=== PATIENT | male | born 1970 | race Caucasian/White ===

== ENCOUNTER 2018-03-31 17:34 | Emergency (ER) | payer BC, SELFPAY ==
[2018-03-31 17:50] VITALS: PULSE 67; RESP 16; TEMP 36.5; O2SAT 99
[2018-03-31 17:56] VITALS: BP 155/87
--- NOTE | 2018-03-31 18:20 | W.ED.GENAD ---
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 HAs no dental pain and no chipped orbroken tooth and no loose teeth on exam and no malalignment on biting down. Has 1cm external laceration and 0.5mm laceration on internal right lower lip. It continues to bleedso it was irrigated and closed with absorbable suture. Return precautions for infection given. Meets all criteria per [place] head ct to not image head. Given his tooth likely went through the wound causing the lacs I will place on abx as well Differential Diagnosis laceration, abrasion HPI General Mode of arrival: ambulatory. Date/Time Provider Initiated Documentation: 03/31/18 17:36. Limitations to Documentation: no limitations. Information obtained by: patient. History of Present Illness 48 year old M presents to the emergency department with the chief complaint of lip laceration, described as mild, with intensity rated at 3. and is localized to the face. Patient reports no radiation. Patient started experiencing this hour(s) (3) and it has been constant. No relieving factors improve symptom(s), No exacerbating factors reported . Patient notes no other symptoms.. Related Data Home Medications Medication Instructions Recorded Confirmed acetaminophen [Acetaminophen Extra 1,000 mg PO Q8H PRN PRN #60 tablet 02/10/17 03/31/18 Strength] amoxicillin-pot clavulanate 1 tab PO BID #10 tab 03/31/18 Previous Rx's Medication Instructions Recorded acetaminophen [Acetaminophen Extra 1,000 mg PO Q8H PRN PRN #60 tablet 02/10/17 Strength] amoxicillin-pot clavulanate 1 tab PO BID #10 tab 03/31/18 Allergies Allergy/AdvReac Type Severity Reaction Status Date / Time No Known Allergies Allergy Unverified 05/02/17 15:12 General Stated Complaint: Laceration HOOD: 4 Review of Systems Review of Systems All systems reviewed & are unremarkable except as noted in HPI and below Constitutional Denies chills, Denies fever(s) and Denies weakness ENT Denies change in voice Cardiovascular Denies chest pain and Denies dyspnea Respiratory Denies dyspnea Gastrointestinal Denies abdominal pain, Denies nausea and Denies vomiting Genitourinary Denies dysuria Musculoskeletal Denies joint swelling Integumentary/Breasts Denies rash Neurologic Denies weakness Psychiatric Denies depression Allergic/Immunologic Denies urticaria PFSH Family History Mother No problems noted. Father No problems noted. Sister No problems noted. Sister No problems noted. Brother No problems noted. Grandfather No problems noted. Grandfather Neoplasm Grandmother No problems noted. Grandmother Neoplasm Daughter No problems noted. Daughter No problems noted. Social History Smoking/Tobacco Use Status: Former Tobacco Use Exam Const General: no acute distress Orientation: alert HENMT Ears: external ears normal General nose exam: external nose normal Mouth: moist mucous membranes Eyes General: appearance normal, both eyes and all related structures Neck Neck: normal visual inspection Resp Effort & Inspection: normal respiratory effort and able to speak in complete sentences Cardio Rate: regular rate Skin General skin exam: no rashes or lesions noted Neuro General: alert and oriented x3 Extrem General: normal to inspection Psych Mental Status: mental status grossly normal Course Vital Signs Temperature 36.5 C 03/31/18 17:50 Pulse 67 03/31/18 17:50 Respiratory Rate 16 03/31/18 17:50 Pulse Oximetry 99 03/31/18 17:50 Temperature 36.5 C 03/31/18 17:50 Temperature Source Skin 03/31/18 17:50 Pulse 67 03/31/18 17:50 Respiratory Rate 16 03/31/18 17:50 Respiratory Effort 03/31/18 17:53 Blood Pressure 155/87 H 03/31/18 17:56 Blood Pressure Position Sitting 03/31/18 17:50 Pulse Oximetry 99 03/31/18 17:50 Oxygen Delivery Method Room Air 03/31/18 17:50 Oxygen Flow Rate 0 03/31/18 17:50 Pain Level 1 03/31/18 17:50 Procedures Laceration Laceration 1: Site: lip Side (If applicable): right Size (cm): 1 Description: linear Depth: simple, single layer Local Anesthetic: Lidocaine 1% Amount of anesthesia used (mL): 5 Pre-repair: wound explored and irrigated extensively Skin layer closed with: other (chromic gut) Size (cm): 5-0 Number of sutures: 3 Technique: simple, interrupted
--- NOTE | 2018-03-31 18:25 | ED.GENADUL_ITS ---
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 HAs no dental pain and no chipped orbroken tooth and no loose teeth on exam and no malalignment on biting down. Has 1cm external laceration and 0.5mm laceration on internal right lower lip. It continues to bleedso it was irrigated and closed with absorbable suture. Return precautions for infection given. Meets all criteria per [place] head ct to not image head. Given his tooth likely went through the wound causing the lacs I will place on abx as well Differential Diagnosis laceration, abrasion HPI General Mode of arrival: ambulatory . Date/Time Provider Initiated Documentation: 03/31/18 17:36 . Limitations to Documentation: no limitations . Information obtained by: patient . History of Present Illness 48 year old M presents to the emergency department with the chief complaint of lip laceration, described as mild, with intensity rated at 3. and is localized to the face. Patient reports no radiation. Patient started experiencing this hour(s) (3) and it has been constant. No relieving factors improve symptom(s), No exacerbating factors reported . Patient notes no other symptoms.. Related Data Home Medications Medication Instructions Recorded Confirmed acetaminophen [Acetaminophen Extra 1,000 mg PO Q8H PRN PRN #60 tablet 02/10/17 03/31/18 Strength] amoxicillin-pot clavulanate 1 tab PO BID #10 tab 03/31/18 Previous Rx's Medication Instructions Recorded acetaminophen [Acetaminophen Extra 1,000 mg PO Q8H PRN PRN #60 tablet 02/10/17 Strength] amoxicillin-pot clavulanate 1 tab PO BID #10 tab 03/31/18 Allergies Allergy/AdvReac Type Severity Reaction Status Date / Time No Known Allergies Allergy Unverified 05/02/17 15:12 General Stated Complaint: Laceration HOOD: 4 Review of Systems Review of Systems All systems reviewed & are unremarkable except as noted in HPI and below Constitutional Denies chills, Denies fever(s) and Denies weakness ENT Denies change in voice Cardiovascular Denies chest pain and Denies dyspnea Respiratory Denies dyspnea Gastrointestinal Denies abdominal pain, Denies nausea and Denies vomiting Genitourinary Denies dysuria Musculoskeletal Denies joint swelling Integumentary/Breasts Denies rash Neurologic Denies weakness Psychiatric Denies depression Allergic/Immunologic Denies urticaria PFSH Family History Mother No problems noted. Father No problems noted. Sister No problems noted. Sister No problems noted. Brother No problems noted. Grandfather No problems noted. Grandfather Neoplasm Grandmother No problems noted. Grandmother Neoplasm Daughter No problems noted. Daughter No problems noted. Social History Smoking/Tobacco Use Status: Former Tobacco Use Exam Const General: no acute distress Orientation: alert HENMT Ears: external ears normal General nose exam: external nose normal Mouth: moist mucous membranes Eyes General: appearance normal, both eyes and all related structures Neck Neck: normal visual inspection Resp Effort & Inspection: normal respiratory effort and able to speak in complete sentences Cardio Rate: regular rate Skin General skin exam: no rashes or lesions noted Neuro General: alert and oriented x3 Extrem General: normal to inspection Psych Mental Status: mental status grossly normal Course Vital Signs Temperature 36.5 C 03/31/18 17:50 Pulse 67 03/31/18 17:50 Respiratory Rate 16 03/31/18 17:50 Pulse Oximetry 99 03/31/18 17:50 Temperature 36.5 C 03/31/18 17:50 Temperature Source Skin 03/31/18 17:50 Pulse 67 03/31/18 17:50 Respiratory Rate 16 03/31/18 17:50 Respiratory Effort 03/31/18 17:53 Blood Pressure 155/87 H 03/31/18 17:56 Blood Pressure Position Sitting 03/31/18 17:50 Pulse Oximetry 99 03/31/18 17:50 Oxygen Delivery Method Room Air 03/31/18 17:50 Oxygen Flow Rate 0 03/31/18 17:50 Pain Level 1 03/31/18 17:50 Procedures Laceration Laceration 1: Site: lip Side (If applicable): right Size (cm): 1 Description: linear Depth: simple, single layer Local Anesthetic: Lidocaine 1% Amount of anesthesia used (mL): 5 Pre-repair: wound explored and irrigated extensively Skin layer closed with: other (chromic gut) Size (cm): 5-0 Number of sutures: 3 Technique: simple, interrupted
[2018-03-31 18:32] VITALS: BP 133/74; PULSE 89; RESP 16; O2SAT 98
== END 2018-03-31 18:32 | disposition home or self-care (01) ==
PROVIDERS: Emergency Provider Emergency Medicine; PCP Family Medicine
DX: S01.511A Laceration without foreign body of lip, initial encounter (principal); W20.8XXA Other cause of strike by thrown, projected or falling object, initial encounter; Y99.0 Civilian activity done for income or pay
CPT/HCPCS: 12011

== ENCOUNTER 2019-01-14 20:29 | Emergency (ER) | payer BC, SELFPAY ==
[2019-01-14] VITALS (14 sets, daily range): BP systolic 120–137; BP diastolic 69–80; PULSE 81–89; RESP 16; TEMP 37; O2SAT 96–98
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
[2019-01-14] MEDS: Ketorolac 15 MG/ML VIAL (20:53)
[2019-01-14 20:55] LABS: Abs Immature Grans 0.04 k/cumm (0.0-0.09); Absolute Basophil Count 0.05 k/cumm (0.0-0.2); Absolute Eosinophil Count 0.02 k/cumm (0.0-0.7); Absolute Lymphocyte Count 1.67 k/cumm (1.2-3.4); Absolute Monocyte Count 0.73 k/cumm (0.11-0.7); Absolute Neutrophil Count 6.72 k/cumm (1.2-6.7); Basophils % 0.5; Eosinophils % 0.2; HCT 40.9 % (40.0-50.0); HGB 14.1 g/dL (13.5-17.5); Immature Grans % 0.4; Lymphocytes % 18.1; Mean Corp. HGB Concentration 34.5 g/dL (32.0-36.0); Mean Corpuscular Hemoglobin 31.9 pg (27.0-33.0); Mean Corpuscular Volume 92.5 fL (80-95); Mean Platelet Volume 10.3 fL (8.0-11.0); Monocytes % 7.9; Neutrophils % 72.9; Platelet Count 332 x1000/uL (130-400); RBC 4.42 m/cumm (4.50-6.00); RBC Distribution Width 12.7 % (11.8-14.1); White Blood Cell Count 9.23 k/cumm (4.4-10.8)
--- NOTE | 2019-01-14 21:03 | NUR.NOTE ---
Pt refused wheelchair or stretcher to CT, insisted on walking. MD advised with verbal OK.Nursing Note:
[2019-01-14 21:08] LABS: PTT Activated 19.8 sec (21.0-31.4); Prothrombin Time 9.9 sec (9.3-11.0)
[2019-01-14 21:09] LABS: ALT 33 U/L (16-63); AST 28 U/L (15-37); Albumin 4.3 g/dL (3.4-5.0); Alkaline Phosphatase 74 U/L (46-116); Anion Gap 11.6 mmol/L (3-11); BUN 18 mg/dL (7-18); Bilirubin, Total 0.6 mg/dL (0.2-1.0); CO2 23.4 mmol/L (21.0-32.0); CREATININE 0.91 mg/dL (0.70-1.30); Calcium 8.7 mg/dL (8.5-10.1); Chloride 105 mmol/L (98-107); Glucose 116 mg/dL (70-100); Potassium 3.5 mmol/L (3.5-5.1); Sodium 140 mmol/L (136-145); Total Protein 7.8 g/dL (6.4-8.2)
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
[2019-01-14] MEDS: Omnipaque 350 MG/ML 100 ML BTL IJ (21:47)
[2019-01-14] MEDS: Lidocaine 5% Patch 1 PATCH TP (21:56)
== END 2019-01-14 21:55 | disposition home or self-care (01) ==
PROVIDERS: Emergency Provider Emergency Medicine; PCP Family Medicine
DX: S22.42XA Multiple fractures of ribs, left side, initial encounter for closed fracture (principal); V43.02XA Car driver injured in collision with other type car in nontraffic accident, initial encounter; Y92.39 Other specified sports and athletic area as the place of occurrence of the external cause
CPT/HCPCS: 36415; 74177; 80053; 96374; 99285; 71260; 85025; 85610; 85730; 99284; J1885; J3490

== ENCOUNTER 2019-01-16 11:41 | Emergency (ER) | payer BC, SELFPAY ==
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
[2019-01-16 11:47] VITALS: BP 120/87; PULSE 77; RESP 18; TEMP 36.7; O2SAT 96
--- NOTE | 2019-01-16 11:51 | W.ED.GENAD ---
Discharge Plan Disposition Patient Disposition: HOME Condition: Fair Discharge Details Chief Complaint: Chest/Rib Clinical Impression: Multiple rib fractures Primary Care Provider: Rohan Magallanes ED Provider: Carolina Eid Home Meds and New Rx's Prescriptions: New lidocaine [Lidoderm] 5 % adhesive patch,medicated 1 patch TP DAILY PRN (Reason: pain) Qty: 15 RF: 0 Discharge Instructions Instructions: Rib Fracture (ED) Additional Instructions: Encourage hydration. Please continue with Tylenol and/or ibuprofen as needed for discomfort. You may use the lidocaine patches as prescribed to help with discomfort. Encourage deep breathing, please continue to use the incentive spirometer. Please follow-up with primary care in 1 week for reevaluation. If you develop difficulty breathing, shortness of breath, increased pain or other new/worsening symptoms please seek care urgently once again. Referrals: Rohan Magallanes MD [Primary Care Provider] - Discharge Data Discharge Date/Time-TO BE ENTERED AT DEPARTURE: 01/16/19 14:01 Medical Decision Making Patient is a 49 year old male presenting today with c/c of left rib pain. Patient was seen here 2 days after, [facility] Please see previous providers note. At that time, he was diagnosed with rib fractures to the left posterior 8, 9, 10 ribs. Had been doing well in regards to pain. Reports that he had been using ibuprofen occasionally to help with discomfort. Last took this 8 hours ago. Reports that upon awakening this morning, he noted severe pain and rolling in bed. Is concerned that this may cause a shift. Denies any shortness of breath, no difficulty breathing, has no increased pain, particularly with movement. His reports that yesterday he was able to sneeze with some minimal discomfort but that at this point, the pain is severe. On exam, appears nontoxic. He is resting comfortably. Moving well. Lungs are clear in all hel[place]. Patient is not hypoxic. Do not note any palpable deformity, no ecchymosis. Plan for x-ray, dosing,, ibuprofen and Lidoderm patch. CXR reviewed by radiologist, discussed imaging with Dr. Chambers, she note left basilar atelectasis. Discussed with patient. ADvised that no evidence of large change in fracture placement. Discussed with the patient and his . As he is stable, has not had any recurrent trauma, do not feel that repeat CT is needed at [facility] time. He has been using incentive spirometer, I reinforced using this. Encouraged hydration. He was given strict return precautions. Will f/u with PCP. All quesitons and concerns were addressed, they are in agreement with this plan. HPI General Mode of arrival: ambulatory. Date/Time Provider Initiated Documentation: 01/16/19 11:48. Limitations to Documentation: no limitations. Information obtained by: patient, family and RN notes reviewed. History of Present Illness 49 year old M presents to the emergency department with the chief complaint of left rib pain, described as severe, with intensity rated at 8. Quality is described as sharp, and is localized to the back. Patient reports no radiation. Patient started experiencing this day(s) and it has been constant (worse after recent movement). Immobilization improves symptom(s), Movement worsens symptoms . Patient notes no other symptoms.; denies cough, diaphoresis, fever/chills, loss of appetite, nausea/vomiting, rash, shortness of breath and weakness. Patient did receive the following treatments prior to arrival, NSAID (0400) Related Data Home Medications Medication Instructions Recorded Confirmed lidocaine [Lidoderm] 1 patch TP DAILY PRN #15 each 01/16/19 Previous Rx's Medication Instructions Recorded lidocaine [Lidoderm] 1 patch TP DAILY PRN #15 each 01/16/19 Allergies Allergy/AdvReac Type Severity Reaction Status Date / Time No Known Allergies Allergy Unverified 01/16/19 11:49 General Stated Complaint: Chest/Rib HOOD: 3 Review of Systems Constitutional Reports as per HPI, Denies chills, Denies fever(s), Denies headache(s), Denies lethargy and Denies poor appetite Eyes Denies change in vision ENT Denies dizziness and Denies headache(s) Cardiovascular Reports as per HPI, Denies chest pain, Denies radiating jaw, neck or arm pain, Denies palpitations, Denies dyspnea and Denies dyspnea on exertion Respiratory Reports as per HPI, Denies chest congestion, Denies cough, Reports pain on inspiration, Reports pain with cough, Denies dyspnea, Denies dyspnea on exertion and Denies wheezing Gastrointestinal Reports as per HPI, Denies abdominal pain, Denies diarrhea, Denies nausea and Denies vomiting Genitourinary Denies system reviewed and no additional complaints, except as docu (denies change in urinary habits) Musculoskeletal Reports as per HPI and Denies back pain Integumentary/Breasts Reports as per HPI and Denies rash Neurologic Reports as per HPI, Denies dizziness and Denies headache(s) Endocrine Denies palpitations Allergic/Immunologic Denies wheezing [facility] Social History Smoking/Tobacco Use Status: Former Tobacco Use Alcohol Intake: current Alcohol Intake frequency: a few times a week Drug use: Never Substance use type: does not use Do you feel safe at home: Yes Do you feel safe in your relationship?: Yes Exam Const General: cooperative, healthy appearing, comfortable, no acute distress and well developed Nutritional Appearance: average body habitus and well nourished Orientation: alert, awake and oriented x3 HENMT Head: normal to inspection Ears: hearing grossly normal bilaterally Mouth: moist mucous membranes Chest Chest: normal inspection of the chest, no crepitus and localized rib tenderness with anteroposterior compression (left posterior and lateral rib pain with palpation over 8-10) Resp Effort & Inspection: normal respiratory effort, able to speak in complete sentences and no respiratory distress Auscultation: clear to auscultation bilaterally, no rales, no rhonchi and no wheezes Cardio Rate: regular rate Rhythm: regular rhythm Heart Sounds: S1 normal and S2 normal GI Inspection: normal to inspection, no edema and non-distended Palpation: soft, no hepatosplenomegaly, not firm, no guarding, not rigid and nontender Auscultation: normal bowel sounds Back/Spine/Pelvis Thoracic/Lumbar Spine: thoracic and lumbar spine normal to inspection Skin General skin exam: no rashes or lesions noted Trauma: no lacerations or abrasions Neuro General: alert, awake and oriented x3 Cognition: normal cognition Speech: speech normal Gait: normal gait Extrem General: normal to inspection, normal capillary refill, no pedal edema, no calf tenderness and normal gait Psych Appearance: grossly normal and well kempt Mental Status: mental status grossly normal Speech and Movement: speech and movement normal Course Vital Signs Temperature 36.7 C 01/16/19 11:47 Pulse 77 01/16/19 11:47 Respiratory Rate 18 01/16/19 11:47 Blood Pressure 120/87 01/16/19 11:47 Pulse Oximetry 96 01/16/19 11:47 Temperature 36.7 C 01/16/19 11:47 Temperature Source Skin 01/16/19 11:47 Pulse 77 01/16/19 11:47 Respiratory Rate 18 01/16/19 11:47 Respiratory Effort 01/16/19 11:50 Blood Pressure 120/87 01/16/19 11:47 Blood Pressure Position Supine 01/16/19 11:47 Pulse Oximetry 96 01/16/19 11:47 Oxygen Delivery Method Room Air 01/16/19 11:47 Oxygen Flow Rate 0 01/16/19 11:47 Pain Level 8 01/16/19 11:47
--- NOTE | 2019-01-16 12:04 | DI.RAD_ITS ---
SYMPTOM/DIAGNOSIS: TRAUMA, KNOWN FRACTURE WITH RE INJURY PA AND LATERAL CHEST AND LEFT RIBS: Comparison is made with chest, abdomen and pelvic CT of 01/14/19. There is blunting at the left costophrenic angle likely representing a small effusion. There is mild linear atelectasis at the left lung base. Rib views were performed. Fractures of the left eighth and ninth ribs are visible. No pneumothorax is seen. IMPRESSION: Left basilar atelectasis and tiny left pleural effusion.
[2019-01-16] MEDS: Ibuprofen 600 MG TAB PO (12:25)
[2019-01-16] MEDS: Acetaminophen 325 MG TAB 650 MG PO (12:25)
[2019-01-16] MEDS: Lidocaine 5% Patch 1 PATCH (12:26)
--- NOTE | 2019-01-16 13:43 | NUR.NOTE ---
Nursing Note: PT reports 3/10 pain scale after interventions. An improvement of 4 points from previous assessment (7/10).
[2019-01-16 14:01] VITALS: BP 130/79; PULSE 69; RESP 16; TEMP 37; O2SAT 97
== END 2019-01-16 14:01 | disposition home or self-care (01) ==
PROVIDERS: Emergency Provider Physician Assistant; PCP Family Medicine
DX: S22.42XA Multiple fractures of ribs, left side, initial encounter for closed fracture (principal); V43.02XA Car driver injured in collision with other type car in nontraffic accident, initial encounter
CPT/HCPCS: 99283; 71046; 71100

== ENCOUNTER 2019-02-05 04:56 | Emergency (ER) | payer BC, SELFPAY ==
[2019-02-05 05:00] VITALS: BP 146/82; PULSE 74; RESP 20; TEMP 36.5; O2SAT 96
[2019-02-05 05:04] VITALS: RESP 20
--- NOTE | 2019-02-05 05:08 | W.ED.GENAD ---
Discharge Plan Disposition Patient Disposition: HOME Condition: Good Discharge Details Chief Complaint: SOB Clinical Impression: Closed rib fracture, Cough Primary Care Provider: Rohan Magallanes ED Provider: Homer Vásquez Home Meds and New Rx's Prescriptions: New lidocaine [Lidoderm] 1 PATCH patch 1 patch Topical Q24H Qty: 7 RF: 0 doxycycline hyclate 100 mg capsule 100 mg PO BID Qty: 20 RF: 0 Discharge Instructions Instructions: Rib Fracture (ED), Acute Cough (ED) Additional Instructions: I am concerned that you have clinical pneumonia. Please take the antibiotic as directed. Please use the Lidoderm patches as you have been using them and continue to use Tylenol Motrin as needed for pain. Continue to take deep breaths multiple times on a regular basis. Please use your inhaler, take 2 puffs every 4-6 hours. If you notice any worsening of your symptoms, or any new symptoms such as vomiting, diarrhea, fever, chills, shortness of breath, chest pain, numbness, weakness, or fainting , please return immediately to the emergency department for reevaluation. Please follow up with your primary care provider as soon as possible for reassessment and reevaluation. As always, it was a pleasure participating in your medical care today. Referrals: Rohan Magallanes MD [Primary Care Provider] - Medical Decision Making This is a very pleasant 49-year-old male with no past medical history, who presents today for evaluation of cough, productive yellow sputum mild shortness of breath. 2-1/2 to 3 weeks ago he [facility] scan of the chest abdomen pelvis at that time showed evidence of rib fracture on the left ribs 8 9 and 10. Subsequent repeat chest x-ray few days later showed evidence of mild atelectasis but no pneumonia. Unfortunately a few days ago his family came in contact with a notable upper respiratory cold, his symptoms have gradually continued and worsened to develop a cough with productive yellow sputum mild shortness of breath and chills over the last 24 to 48 hours. Physical exam demonstrates wheezes and crackles both lung [place], particularly the left. Vital signs are notably stable, no hypoxemia or tachycardia. Patient is still doing incentive spirometry and deep breathing at home. Differential is highest for pneumonia. We will get a chest x-ray for reassessment, given breathing treatment, repeat Lidoderm patch and reassess. 5:54 AM Chest x-ray per virtual radiology shows no evidence of significant pneumonia. However I am concerned for clinical pneumonia based on the patient's symptomatology. X-ray shows no evidence of significant pneumothorax or effusion. Patient has notable improvement of his symptomatology after breathing treatment. I do feel that secondary to his rib fractures and most likely recent viral infection it is a bit of reactive airway component. With his clinical symptoms concerning for pneumonia do feel that antibiotic treatment is indicated at this point. I have extensively reviewed the treatment plan and discharge instructions with the patient and their family. I have addressed all patient concerns at this time. The patient and family was made aware of what symptoms to monitor for that would warrant a return to the emergency department. Discussed the plan with the patient and family, they demonstrate verbal understanding and agreement with our assessment and plan at this time. EKG 5: 22 Rate 71, intervals normal, sinus rhythm, no significant ST elevation or depression, there is a single inverted T wave in V1. There are small old Q wave in lead III. No other abnormalities or acute component. No evidence of STEMI FINDINGS: Lungs: Unremarkable. No consolidation. Pleural space: Unremarkable. No pleural effusion. No pneumothorax. Heart/Mediastinum: Unremarkable. No cardiomegaly. Bones/joints: Probable old left-sided rib fracture deformities Soft tissues: Prominent nipple shadows noted bilaterally IMPRESSION: No acute findings Thank you for allowing us to participate in the care of your patient. Dictated and Authenticated by: Jono Pandey MD [facility] General Date/Time Provider Initiated Documentation: 02/05/19 05:06. HPI Narrative: This is a pleasant 49-year-old male with no past medical history of significance who presents today for cough with productive yellow sputum and mild shortness of breath. On 01/14 the patient suffered a trauma at the [facility] and fractured ribs 8 9 and 10. No other significant abnormality seen then, 2 days afterwards he had continued pain, chest x-ray was ordered which showed mild atelectasis and very small effusion but no pneumonia. Since then he has been using Lidoderm patches, however Tylenol, Motrin, and incentive spirometry as directed. Unfortunately over the last week the family has all come in contact with bit of a head cold with runny nose and congestion, the patient's symptoms unfortunately have then transitioned into his chest, and now has notable cough with productive yellow sputum. Chest pain has continued, worse with movement, he is able to still do deep breathing well without significant difficulty. He does have pain with cough. He does admit to some chills at home, but denies any arm neck or shoulder pain. He denies any personal or family history of cardiac disease. He denies any tobacco abuse. Patient has no other complaints at this time. He denies any hemoptysis, nausea vomiting or diarrhea. No recent antibiotic use. Related Data Home Medications Medication Instructions Recorded Confirmed doxycycline hyclate 100 mg PO BID #20 cap 02/05/19 lidocaine [Lidoderm] 1 patch TOPICAL Q24H #7 patch 02/05/19 Previous Rx's Medication Instructions Recorded doxycycline hyclate 100 mg PO BID #20 cap 02/05/19 lidocaine [Lidoderm] 1 patch TOPICAL Q24H #7 patch 02/05/19 Allergies Allergy/AdvReac Type Severity Reaction Status Date / Time No Known Allergies Allergy Unverified 02/05/19 05:03 General Stated Complaint: SOB HOOD: 4 Review of Systems Review of Systems ROS Unobtainable: All systems reviewed & are unremarkable except as noted in HPI and below PFSH Social History Smoking/Tobacco Use Status: Former Tobacco Use Alcohol Intake: current Alcohol Intake frequency: a few times a week Drug use: Never Substance use type: does not use Do you feel safe at home: Yes Do you feel safe in your relationship?: Yes Exam Narrative Exam Narrative: 1.Const: Well-nourished, Well-developed, appearing stated age 2.Eyes: PERRL, no conjunctival injection, and symmetrical lids. 3.ENT: Atraumatic external nose and ears. Moist MM. Neck: Symmetric, trachea midline, No thyromegaly. 4.CVS: +S1/S2, No murmurs or gallops. Peripheral pulses 2+ and equal in all extremities. Brisk capillary refill in all extremities. 5.RESP: Unlabored respiratory effort. Crackles in the bases bilaterally mild wheezes throughout. Mild tenderness over the left lateral rib cage. No new bruising. There is an old bruise that is mild over the left flank, however this is unchanged per family since the initial incident. 6.GI: Soft, Nontender/Nondistended, No hepatosplenomegaly. No guarding or rebound. 7.MSK: Normocephalic/Atraumatic, Extremities w/o deformity or ttp No cyanosis or clubbing, Normal movement of all extremities 8.Skin: Warm, Dry. No rashes or lesions. Please see respiratory for bruise description 9.Neuro: clinical product specialist II-XII grossly intact. Sensation grossly intact, no focal neurologic deficits. 10.Psych: (AAO) x3. Appropriate mood and affect Course Vital Signs Vital signs: Vital Signs Temperature 36.5 C 02/05/19 05:00 Pulse 74 02/05/19 05:00 Respiratory Rate 20 02/05/19 05:00 Blood Pressure 146/82 H 02/05/19 05:00 Pulse Oximetry 96 02/05/19 05:00 Temperature 36.5 C 02/05/19 05:00 Temperature Source Temporal Artery Scan 02/05/19 05:00 Pulse 74 02/05/19 05:00 Respiratory Rate 20 02/05/19 05:04 Respiratory Effort Short of Breath 02/05/19 05:04 Blood Pressure 146/82 H 02/05/19 05:00 Blood Pressure Position Sitting 02/05/19 05:00 Pulse Oximetry 96 02/05/19 05:00 Oxygen Delivery Method Room Air 02/05/19 05:00 Oxygen Flow Rate 0 02/05/19 05:00 Pain Level 6 02/05/19 05:04
--- NOTE | 2019-02-05 05:30 | DI.RAD_ITS ---
SYMPTOM/DIAGNOSIS: COUGH, KNOWN RIB FRACTURES, ? PNEUMONIA PA AND LATERAL CHEST: The lungs are well expanded and free of infiltrate. There is no pleural effusion or pneumothorax. The cardiovascular structures are intact. Note is made of what appears to probably represent old left sided rib fractures. SUMMARY: No evidence of acute cardiopulmonary disease.
[2019-02-05] MEDS: Lidocaine 5% Patch 1 PATCH TP (05:35)
[2019-02-05] MEDS: Albuterol/Ipratropium 3 ML UPD VIAL UPD (05:39)
--- NOTE | 2019-02-05 05:52 | DI.VRAD_ITS ---
EXAM: XR Chest, 2 Views EXAM DATE/TIME: 02/05/2019 5:17 AM CLINICAL HISTORY: 49 years old, male; Chest wall pain; Patient HX: Known rib FX posterior left 8, 9, 10, cough, R/O pneumonia TECHNIQUE: Imaging protocol: XR of the chest Views: 2 views. COMPARISON: CR XR ribs LT w PA lat chest 01/16/2019 12:21 PM FINDINGS: Lungs: Unremarkable. No consolidation. Pleural space: Unremarkable. No pleural effusion. No pneumothorax. Heart/Mediastinum: Unremarkable. No cardiomegaly. Bones/joints: Probable old left-sided rib fracture deformities Soft tissues: Prominent nipple shadows noted bilaterally IMPRESSION: No acute findings Dictated and Authenticated by: Jono Pandey MD. Ordering:CRISTOPHER Coronel MD
[2019-02-05] MEDS: Inhaler, Assist Device 1 EACH MC (06:07)
[2019-02-05] MEDS: Albuterol HFA 8 GM 60 PUFF INH IH (06:07)
[2019-02-05] MEDS: Doxycycline Hyclate 100 MG CAP PO (06:07)
[2019-02-05 06:09] VITALS: RESP 8
== END 2019-02-05 06:20 | disposition home or self-care (01) ==
PROVIDERS: Emergency Provider Student in an Organized Health Care Education/Training Program; PCP Family Medicine
DX: R05 Cough (principal); S22.42XD Multiple fractures of ribs, left side, subsequent encounter for fracture with routine healing; V43.02XD Car driver injured in collision with other type car in nontraffic accident, subsequent encounter; J18.9 Pneumonia, unspecified organism; Z20.828 Contact with and (suspected) exposure to other viral communicable diseases
CPT/HCPCS: 93005; 94640; 99284; 71046; 93010; J7620

== ENCOUNTER 2019-07-28 19:45 | Emergency (ER) | payer BC, SELFPAY ==
[2019-07-28 19:51] VITALS: BP 155/78; PULSE 99; RESP 18; TEMP 38.3; O2SAT 97
--- NOTE | 2019-07-28 20:00 | DI.RAD_ITS ---
EXAM: XR CHEST 2V PA LATERAL CLINICAL HISTORY: cough and fever TECHNIQUE: 2D digital imaging was performed. COMPARISON: XR CHEST 2V PA LATERAL from 02/05/2019 FINDINGS: MEDIASTINUM: Normal. HEART: Normal. PULMONARY VASCULATURE: Normal. LUNGS: Clear. PLEURAL SPACE: No pleural effusion or pneumothorax. BONE:Degenerative changes. OTHER FINDINGS:Normal. IMPRESSION: No acute pulmonary findings. DATA REPOSITORY: RADIATION DOSE DELIVERED:
--- NOTE | 2019-07-28 20:11 | W.ED.GENAD ---
Discharge Plan Disposition Patient Disposition: HOME Condition: Stable Discharge Details Chief Complaint: RespSymp Clinical Impression: Fever Primary Care Provider: Rohan Magallanes ED Provider: Orville Vasquez Home Meds and New Rx's Prescriptions: New doxycycline hyclate 100 mg tablet 100 mg PO BID Qty: 14 RF: 0 Discharge Instructions Instructions: Fever in Adults (ED) Additional Instructions: you are being started on doxycyline to cover for a pneumonia if you are not better within a week return to the emergency department if you feel more ill, have worsening trouble breathing or abdominal pain return to the emergency department Medical Decision Making 49 yo male who denies chronic medical problems, smoking alcohol or drug use or recent travel comes in with chief complaint of subjective fevers intermittently since May with worsening cough. Denies travel, smoking, alcohol or drug use. No known sick contacts. HE arrives HD stable, has clear lungs soft abdomen, no rashes. Does have fever to 38.3, also has had body aches. Could be flu vs pneumonia given cough, no risk factors for covid-19. Will obtain cxr and test for flu and give IVF as he does appear dehydrated. 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 Xray and flu swab negative. Given his length of symptoms and cough and also has some sinus congestion will start doxycyline to cover for CAP and sinusitis. ADvised to f/u with pcp within a week and return precautions given Differential Diagnosis Differential Diagnosis: influenza, uri, pneumonia Imaging Data Radiologic Study: Attestation: I personally reviewed and interpreted this imaging study as follows: Imaging: X-Ray Radiologist's impression: no acute findings Lab Data Lab results reviewed: Yes I reviewed the patient's lab results. HPI General Date/Time Provider Initiated Documentation: 07/28/19 19:54. Related Data Home Medications Medication Instructions Recorded Confirmed doxycycline hyclate 100 mg PO BID #14 tab 07/28/19 Previous Rx's Medication Instructions Recorded doxycycline hyclate 100 mg PO BID #14 tab 07/28/19 Allergies Allergy/AdvReac Type Severity Reaction Status Date / Time No Known Allergies Allergy Unverified 02/05/19 05:03 General Stated Complaint: RespSymp HOOD: 3 Review of Systems All systems reviewed & are unremarkable except as noted in HPI and below Cardiovascular Cardiovascular: Denies chest pain and Denies dyspnea Respiratory Respiratory: Denies dyspnea Gastrointestinal Gastrointestinal: Denies abdominal pain, Denies nausea and Denies vomiting Integumentary/Breasts Skin/Breast: Denies rash Psychiatric Psychiatric: Denies depression [facility] Social History Smoking/Tobacco Use Status: Never Alcohol Intake: current Alcohol Intake frequency: a few times a week Drug use: Never Substance use type: does not use Do you feel safe at home: Yes Do you feel safe in your relationship?: Yes Exam Const General: no acute distress Orientation: alert HENMT Head: normal to inspection Ears: external ears normal General nose exam: external nose normal Mouth: moist mucous membranes Eyes General: appearance normal, both eyes and all related structures Neck Neck: normal visual inspection Resp Effort & Inspection: normal respiratory effort and able to speak in complete sentences Cardio Rate: regular rate Skin General skin exam: no rashes or lesions noted Neuro General: alert and oriented x3 Extrem General: normal to inspection Psych Mental Status: mental status grossly normal Course Vital Signs Vital signs: Vital Signs Temperature 38.3 C H 07/28/19 19:51 Pulse 99 H 07/28/19 19:51 Respiratory Rate 18 07/28/19 19:51 Blood Pressure 155/78 H 07/28/19 19:51 Pulse Oximetry 97 07/28/19 19:51 Temperature 38.3 C H 07/28/19 19:51 Temperature Source Oral 07/28/19 19:51 Pulse 99 H 07/28/19 19:51 Respiratory Rate 18 07/28/19 19:51 Respiratory Effort 07/28/19 19:53 Respiratory Depth Normal 07/28/19 19:53 Blood Pressure 155/78 H 07/28/19 19:51 Blood Pressure Position Sitting 07/28/19 19:51 Pulse Oximetry 97 07/28/19 19:51 Oxygen Delivery Method Room Air 07/28/19 19:51 Oxygen Flow Rate 0 07/28/19 19:51 Pain Level 8 07/28/19 19:51
[2019-07-28] MEDS: Normal Saline 1,000 ML 1000 ML IV (20:32)
[2019-07-28] MEDS: Acetaminophen 500 MG TAB 1000 MG PO (20:33)
[2019-07-28] MEDS: Normal Saline Flush 10 ML SYR IVP (20:33)
[2019-07-28 20:35] LABS: Abs Immature Grans 0.18 k/cumm (0.0-0.09); Absolute Basophil Count 0.03 k/cumm (0.0-0.2); Absolute Eosinophil Count 0.02 k/cumm (0.0-0.7); Absolute Lymphocyte Count 1.19 k/cumm (1.2-3.4); Absolute Monocyte Count 1.33 k/cumm (0.11-0.7); Basophils % 0.3; Eosinophils % 0.2; HGB 10.6 g/dL (13.5-17.5); Immature Grans % 1.7 %; Lymphocytes % 10.9; Mean Corp. HGB Concentration 33.1 g/dL (32.0-36.0); Mean Corpuscular Hemoglobin 29.9 pg (27.0-33.0); Mean Corpuscular Volume 90.4 fL (80-95); Mean Platelet Volume 8.9 fL (8.0-11.0); Monocytes % 12.2; Neutrophils % 74.7; Platelet Count 323 x1000/uL (130-400); RBC 3.54 m/cumm (4.50-6.00); RBC Distribution Width 13.3 % (11.8-14.1)
[2019-07-28 20:36] LABS: Absolute Neutrophil Count 8.14 k/cumm (1.2-6.7)
[2019-07-28 20:48] LABS: ALT 39 U/L (16-63); AST 56 U/L (15-37); Albumin 2.9 g/dL (3.4-5.0); Alkaline Phosphatase 201 U/L (46-116); Anion Gap 12.6 mmol/L (3-11); BUN 18 mg/dL (7-18); Bilirubin, Total 0.3 mg/dL (0.2-1.0); CO2 22.4 mmol/L (21.0-32.0); Calcium 8.5 mg/dL (8.5-10.1); Chloride 101 mmol/L (98-107); Glucose 118 mg/dL (74-106); Potassium 3.8 mmol/L (3.5-5.1); Sodium 136 mmol/L (136-145); Total Protein 7.3 g/dL (6.4-8.2)
--- NOTE | 2019-07-28 20:48 | DI.VRAD_ITS ---
PROCEDURE INFORMATION: Exam: XR Chest, 2 Views Exam date and time: 07/28/2019 8:39 PM Age: 49 years old Clinical indication: Cough and fever TECHNIQUE: Imaging protocol: XR of the chest Views: 2 views. COMPARISON: CR XR CHEST 2V PA LATERAL 02/05/2019 5:28 AM FINDINGS: Lungs: Unremarkable. No consolidation. Pleural space: Unremarkable. No pleural effusion. No pneumothorax. Heart/Mediastinum: Unremarkable. No cardiomegaly. Bones/joints: Degenerative changes. IMPRESSION: No acute findings. Dictated and Authenticated by: Enmanuel Teixeira MD. Ordering:COLTEN Jacinto MD
[2019-07-28 21:20] VITALS: BP 137/70; PULSE 96; RESP 16; TEMP 37.6; O2SAT 97
[2019-07-28] MEDS: Doxycycline Hyclate 100 MG CAP PO (21:20)
== END 2019-07-28 21:25 | disposition home or self-care (01) ==
PROVIDERS: Emergency Provider Emergency Medicine; PCP Family Medicine
DX: R50.9 Fever, unspecified (principal)
CPT/HCPCS: 36415; 80053; 87449; 96360; 99284; 71046; 85025

== ENCOUNTER 2019-08-24 19:35 | Emergency (ER) | payer BC, SELFPAY ==
[2019-08-24 19:40] VITALS: BP 113/85; PULSE 106; RESP 16; TEMP 36.5; O2SAT 97
[2019-08-24 20:16] LABS: Bilirubin Negative (Negative); Blood Trace-intact (Negative); Clarity Clear (Clear); Glucose Negative (Negative); Ketones Negative (Negative); Leukocyte Esterase Negative (Negative); Nitrite Negative (Negative); Specific Gravity 1.025 (1.005-1.025); Urobilinogen 0.2 EU/dL (Up TO 0.2)
[2019-08-24 20:25] LABS: Bacteria Negative HPF (Negative); C & S Indicated? No; Casts 3-5 Hyaline LPF (Negative); Crystals Negative HPF (Negative); Epithelial Cells Negative HPF (Negative); Mucus Moderate (Negative); WBC 0-2 HPF (0-5)
[2019-08-24] MEDS: Ketorolac 60 MG/2 ML VIAL IM (20:31)
--- NOTE | 2019-08-24 20:51 | DI.CT_ITS ---
EXAM: CT RENAL COLIC WO CLINICAL HISTORY: Right flank pain, hematuria. TECHNIQUE: Imaging Protocol: Axial computed tomography images with coronal and sagittal reformatted images were created and reviewed. COMPARISON: CT CHEST/ABD/PEL W from 01/14/2019 FINDINGS: ABDOMEN: Lung Bases: Normal where visualized. Liver: Slightly heterogeneous appearance of the liver. Hepatic lesions cannot be excluded on this no ncontrast examination. Gallbladder and biliary tract: No radiodense calculus or biliary ductal dilation. Pancreas: Normal density, no abnormal calcifications or inflammatory process. Spleen: Normal. Kidneys: Normal size, contour and axis. No radiodense stones or obstructive uropathy. No masses seen. Adrenal glands: No masses seen. Lymph nodes: Stable retroperitoneal and right iliac adenopathy compared to the prior examination. Abdominal Aorta: Abdominal portion non-dilated. PELVIS: Bladder: Symmetric distention, no gross wall thickening. Bowel: Colonic diverticulosis. No evidence of acute diverticulitis. No evidence of obstruction or i nflammation. Normal appendix is present. Peritoneal cavity: No ascites, collection or mesenteric inflammatory response. Reproductive organs: Enlarged prostate gland. Bones: Interval development of multiple sclerotic lesions throughout the visualized skeleton. The fi ndings are concerning for osseous metastatic disease. Soft Tissues: Within normal limits. IMPRESSION: 1. Development of new sclerotic foci throughout the visualized skeleton. The findings are suspicious for osseous metastatic disease. 2. Heterogeneous appearance of the liver on this noncontrast examination. Hepatic lesions or diffuse hepatic disease cannot be excluded. Postcontrast CT scan or MRI is recommended for further evaluati on. 3. Persistent retroperitoneal and right iliac adenopathy. 4. No evidence of nephrolithiasis or hydronephrosis. 5. Enlarged prostate gland. DATA REPOSITORY: All CT scans at this facility are submitted to the National Radiology Data Registry (NRDR) Dose Index Registry (DIR) with the [employer] (ACR). RADIATION OPTIMIZATION: All CT scans at this facility use at least one of these dose optimization te chniques: automated exposure control; mA and/or kV adjustment per patient size (includes targeted exa ms where dose is matched to clinical indication); or iterative reconstruction.
--- NOTE | 2019-08-24 21:15 | DI.VRAD_ITS ---
PROCEDURE INFORMATION: Exam: CT Abdomen And Pelvis Without Contrast Exam date and time: 08/24/2019 8:51 PM Age: 49 years old Clinical indication: Abdominal pain; Flank; Right; Additional info: Right flank pain, hematuria TECHNIQUE: Imaging protocol: Computed tomography of the abdomen and pelvis without contrast. Radiation optimization: All CT scans at this facility use at least one of these dose optimization techniques: automated exposure control; mA and/or kV adjustment per patient size (includes targeted exams where dose is matched to clinical indication); or iterative reconstruction. COMPARISON: CT CHEST/ABD/PEL W 01/14/2019 9:06 PM FINDINGS: Lungs: The visualized portions of the lung bases demonstrate no acute disease. Liver: Heterogeneous liver parenchyma with concern for subtle focal hypodense liver lesions which are difficult to evaluate in this examination. For example, a heterogeneous hypodense irregular area is seen in the right hepatic lobe on image 172 series 3. Gallbladder and bile ducts: Normal. No calcified stones. No ductal dilation. Pancreas: Normal. No ductal dilation. Spleen: Normal. No splenomegaly. Adrenals: Normal. No mass. Kidneys and ureters: Normal. No hydronephrosis. Stomach and bowel: Unremarkable. No obstruction. No mucosal thickening. Appendix: No evidence of appendicitis. Intraperitoneal space: Unremarkable. No free air. No significant fluid collection. Vasculature: Unremarkable. No abdominal aortic aneurysm. Lymph nodes: Slightly improved but persistent prominent retroperitoneal and right iliac adenopathy which is of unclear etiology. No other concerning adenopathy is noted. Bladder: Unremarkable as visualized. Reproductive: Stable mild prostatomegaly. Bones/joints: New heterogeneous medullary pattern throughout the skeletal structures with innumerable nodular sclerotic lesions, highly concerning for infiltrative skeletal disease. Multilevel degenerative changes of the spine are present. There is a limbus vertebra at L4. Soft tissues: Stable small bilateral fat containing inguinal hernias. IMPRESSION: 1. New osseous findings highly concerning for infiltrative skeletal disease. 2. Concern for possible very subtle liver lesions, or artifact, which are of unclear etiology, however infiltrative liver disease is difficult to exclude. Consider correlation with ultrasound or further evaluation with contrast enhanced CT. 3. Slightly improved but persistent prominent retroperitoneal and right iliac adenopathy which is of unclear etiology. Differential would include infiltrative or reactive adenopathy. 4. No acute abdominopelvic pathology otherwise appreciated. Dictated and Authenticated by: Gerardo Bush MD. Ordering:NUSRAT Hardy MD
--- NOTE | 2019-08-24 21:33 | W.ED.GENAD ---
Discharge Plan Disposition Patient Disposition: HOME Condition: Stable Discharge Details Chief Complaint: Nk/Back Pain Clinical Impression: Back pain, Retroperitoneal lymphadenopathy, Lesion of liver, Bone lesion Primary Care Provider: Rohan Magallanes ED Provider: Antony Mercado Home Meds and New Rx's Prescriptions: No Action No Known Home Meds RF: 0 Discharge Instructions Instructions: Back Pain (ED) Additional Instructions: Your CT imaging is highly concerning for possible liver lesions, infiltrative skeletal disease, and retroperitoneal and iliac adenopathy. As we discussed this is concerning for metastatic cancer however you need additional studies and tests to confirm the diagnosis. I will send my medical documentation and CT findings over to your primary care provider so that they will have this information first thing Tuesday. I recommend reaching out to their office first thing Tuesday for prompt outpatient reevaluation. Please watch for new or worsening symptoms and return to the ER for any concerns Medical Decision Making 49-year-old gentleman with no significant past medical history presents reporting roughly 2-month history of right lower back pain but worse over the past day or so. Maybe mild difficulty urinating this morning however that resolved after drinking water. He appears well, nontoxic. He is afebrile. No evidence of cauda equina. Neurologically intact. Discussed our options. He has no history of renal stone. Will give 60 IM Toradol and obtain urinalysis for potential infection and/or hematuria. Urinalysis reveals trace blood, 3-5 red cells. Discussed findings with patient. Patient is agreeable to a renal colic CT without contrast for further evaluation of possible stones. Patient reports that he feels much improvement with the IM Toradol. CT read by virtual radiology as new osseous findings highly concerning for infiltrative skeletal disease. Concern for possible very subtle liver lesion, or artifact, which are of unclear etiology, however infiltrative liver disease is difficult to exclude. Consider correlation with ultrasound or further evaluation with contrast-enhanced CT. Slightly improved but persistent prominent retroperitoneal and right iliac adenopathy which is of unclear etiology. Differential would include infiltrative or reactive adenopathy. No acute abdominal pelvic pathology otherwise appreciated CT findings discussed in length with patient. Obviously quite concerning for potential metastatic disease. Discussed with patient the need for much more thorough outpatient work-up including likely CT imaging, PET scan, potential biopsies. These evaluations will be imperative to properly diagnose the CT findings. I will send my note and CT findings over to the patient's primary care provider so that they are aware when they come back into the office Tuesday and I have encouraged the patient to reach out to his primary care provider on Tuesday for prompt outpatient reevaluation. He was encouraged to return to the ER for new or worsening symptoms. Patient at this time has no additional questions or concerns and is comfortable with this plan Medical Records Medical records reviewed: Yes I reviewed the patient's medical records. HPI General Mode of arrival: ambulatory. Date/Time Provider Initiated Documentation: 08/24/19 19:41. Limitations to Documentation: no limitations. Information obtained by: patient. HPI Narrative: This is a 49-year-old gentleman who denies previous significant past medical history. He reports he has had roughly 2 months of right lower back pain, he felt as though he was initially jolted on a skid steer at work causing his discomfort but never had any true trauma. 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 He tells me that he was seen in our ER a month or so ago potential pneumonia, denies any cough or shortness of breath. He reports occasional sweats but having never taken his formal temperature unable to tell me if he truly had a fever or not. He contacted his primary care provider after his previous ER visit but because he was doing much improved they did not have him follow-up. He reports mild relief with taking ibuprofen this morning. He felt as though he was dehydrated with all the extra work she was doing and that his urine was slightly more dark this morning although after drinking ample water he had no urinary symptoms. He denies any radiation of his back pain any numbness, tingling, weakness, incontinence. He reports that the back pain is not better or worse with movement. Denies any pain in his penis or testicles. Reports that there was a dull ache in his right groin earlier today Related Data Home Medications Medication Instructions Recorded Confirmed Unknown [No Known Home Meds] 08/24/19 08/24/19 Allergies Allergy/AdvReac Type Severity Reaction Status Date / Time No Known Allergies Allergy Unverified 02/05/19 05:03 General Stated Complaint: Nk/Back Pain HOOD: 3 Review of Systems Constitutional Constitutional: Denies fatigue, Reports fever(s) (Subjective), Denies headache(s), Reports night sweats and Denies weakness Eyes Eyes: Denies eye discharge ENT Ears, Nose, Mouth, and Throat: Denies headache(s), Denies nasal discharge and Denies sore throat Cardiovascular Cardiovascular: Denies chest pain and Denies dyspnea Respiratory Respiratory: Denies cough and Denies dyspnea Gastrointestinal Gastrointestinal: Denies abdominal pain, Denies diarrhea, Denies nausea and Denies vomiting Genitourinary Genitourinary: Denies dysuria, Denies scrotal swelling, Denies testicular pain, Denies urinary frequency, Reports urinary hesitancy and Denies urinary urgency Musculoskeletal Musculoskeletal: Reports back pain, Denies numbness and Denies tingling Integumentary/Breasts Skin/Breast: Denies rash Neurologic Neurologic: Denies headache(s), Denies numbness, Denies tingling and Denies weakness Endocrine Endocrine: Denies fatigue [facility] Family History Mother No problems noted. Father No problems noted. Sister No problems noted. Sister No problems noted. Brother No problems noted. Grandfather No problems noted. Grandfather Neoplasm Grandmother No problems noted. Grandmother Neoplasm Daughter No problems noted. Daughter No problems noted. Social History Smoking/Tobacco Use Status: Never Alcohol Intake: current Alcohol Intake frequency: a few times a week Drug use: Never Substance use type: does not use Do you feel safe at home: Yes Do you feel safe in your relationship?: Yes Exam Const General: cooperative, healthy appearing, comfortable and no acute distress Orientation: alert and awake [facility] Head: normal to inspection, normocephalic and atraumatic Mouth: moist mucous membranes Eyes Conjunctivae: conjunctivae normal Neck Neck: normal visual inspection, full ROM, trachea midline and supple Resp Effort & Inspection: normal respiratory effort and able to speak in complete sentences Auscultation: clear to auscultation bilaterally Cardio Rate: regular rate Rhythm: regular rhythm and other (Pt did have mild tachycardia, 106 in triage. During my evaluation he was 92) GI Inspection: normal to inspection Palpation: soft, not firm, no guarding and nontender Auscultation: normal bowel sounds Penis: normal penis Meatus: meatus normal Scrotum: scrotum normal Testes: normal Back/Spine/Pelvis Back: no CVA tenderness and back tenderness (Diffuse right lumbar without spasm, erythema or midline point tenderness) Skin General skin exam: no rashes or lesions noted Neuro General: patient alert, patient awake, moves all extremities and no focal motor deficits Motor: muscle tone normal throughout and strength 5/5 throughout Sensory Exam: no sensory deficits noted Extrem General: normal to inspection, full ROM and capillary refill normal Psych Appearance: grossly normal Mental Status: mental status grossly normal Course Vital Signs Vital signs: Vital Signs Temperature 36.5 C 08/24/19 19:40 Pulse 106 H 08/24/19 19:40 Respiratory Rate 16 08/24/19 19:40 Blood Pressure 113/85 08/24/19 19:40 Pulse Oximetry 97 08/24/19 19:40 Temperature 36.5 C 08/24/19 19:40 Temperature Source Oral 08/24/19 19:40 Pulse 106 H 08/24/19 19:40 Respiratory Rate 16 08/24/19 19:40 Respiratory Effort 08/24/19 20:23 Blood Pressure 113/85 08/24/19 19:40 Blood Pressure Position Sitting 08/24/19 19:40 Pulse Oximetry 97 08/24/19 19:40 Oxygen Delivery Method Room Air 08/24/19 19:40 Oxygen Flow Rate 0 08/24/19 19:40 Pain Level 7 08/24/19 20:31 Lab/Test Results Lab/Test Results: Laboratory Tests Range/Units 08/24/19 20:10 Urine Color (Yellow) Yellow Urine Clarity (Clear) Clear Urine pH (5-8) 6.0 Ur Specific Benedict (1.005-1.025) 1.025 Urine Protein (Negative) mg/dL Negative Urine Ketones (Negative) mg/dL Negative Urine Blood (Negative) Trace-intact H Urine Nitrite (Negative) Negative Urine Bilirubin (Negative) Negative Urine Urobilinogen (Up TO 0.2) EU/dL 0.2 Ur Leukocyte Esterase (Negative) Negative Urine RBC (0-2) HPF 3-5 H Urine WBC (0-5) HPF 0-2 Ur Epithelial Cells (Negative) HPF Negative Urine Crystals (Negative) HPF Negative Urine Bacteria (Negative) HPF Negative Urine Casts (Negative) LPF 3-5 hyaline Urine Mucus (Negative) Moderate Ur Culture Indicated? No Urine Glucose (Negative) mg/dL Negative
[2019-08-24 22:08] VITALS: BP 143/85; PULSE 98; RESP 16; O2SAT 98
--- NOTE | 2019-08-26 21:48 | NUR.NOTE ---
referral faxed to pcp for follow up care Nursing Note:
== END 2019-08-24 21:40 | disposition home or self-care (01) ==
PROVIDERS: Emergency Provider Physician Assistant; PCP Family Medicine
DX: M54.5 Low back pain (principal); R59.1 Generalized enlarged lymph nodes; K76.9 Liver disease, unspecified; M89.9 Disorder of bone, unspecified
CPT/HCPCS: 96372; 99285; 74176; 81003; 81015; 99284; J1885

== ENCOUNTER 2019-09-04 00:29 | Outpatient (CLI) | payer BC, SELFPAY ==
--- NOTE | 2019-09-04 06:15 | DI.MRI_ITS ---
EXAM: MR ABDOMEN WO/W CLINICAL HISTORY: Heterogeneous liver on non-contrast CT,K76.9,M89.9,LESION OF LIVER, RETROPERITONEA L LYMPHADENOPATHY, BONE LESION TECHNIQUE: Multiplanar multisequence MRA of the Abdomen was performed. CONTRAST MATERIAL: IV Contrast: Yes 19 mL of Dotarem contrast administered. COMPARISON: CT RENAL COLIC WO from 08/24/2019 FINDINGS: Liver: The liver is homogeneous in signal intensity. There is no evidence of a hepatic mass. The po rtal, superior mesenteric and splenic veins are unremarkable. Gallbladder and bile ducts: Unremarkable. Kidneys: Unremarkable Bowel: Colonic diverticulosis but otherwise unremarkable as visualized. Pancreas: Unremarkable. Adrenal glands: Unremarkable. Spleen: Unremarkable. Aorta: Unremarkable. IMPRESSION: Unremarkable MRI examination of the liver. No evidence of a hepatic mass. DATA REPOSITORY:
[2019-09-04] MEDS: Normal Saline Flush 10 ML SYR IVP (09:15)
[2019-09-04] MEDS: Gadoterate meglumine 20 ML VIAL 19 ML IVP (09:16)
== END 2019-09-04 00:49 ==
PROVIDERS: PCP Family Medicine; Visit Provider Family Medicine
DX: K76.89 Other specified diseases of liver (principal); R59.0 Localized enlarged lymph nodes; K57.30 Diverticulosis of large intestine without perforation or abscess without bleeding; M89.8X8 Other specified disorders of bone, other site
CPT/HCPCS: 74183

== ENCOUNTER 2019-09-10 01:49 | Outpatient (CLI) | payer BC, SELFPAY ==
--- NOTE | 2019-09-10 06:15 | DI.US_ITS ---
EXAM: US PROSTATE BIOPSY CLINICAL HISTORY: tissue diagnosis - suspected prostate cancer,DISORDER OF BONE,N42.9,M89.9,RETROPER ITONEAL LYMPHADENOPATHY TECHNIQUE: Ultrasound performed using standard protocol. COMPARISON: No exams were available for comparison FINDINGS: Ultrasound guidance was provided for prostate biopsy performed by Dr. Carbajal. Please see Dr. Carbajal's procedure note. Prostatic volume is estimated at 47 cc. DATA REPOSITORY:
--- NOTE | 2019-09-10 09:20 | PROST_PTH ---
PATIENT: Lui Richardson LOC: [facility] U#:[id number] AGE/SX: 49/M ROOM: RE09/10/[address]: Twin Carbajal MD : 1970 BED: DIS: 09/10/2019 SPEC #: [id number] RECD: 09/10/19 11:38 STATUS: FIFI RE #: [id number] ALICE: 09/10/19 09:[address]: Twin Carbajal DEPT: Surgical Specimen RECD BY: Rad Maynard ENTERED: 09/10/19 11:49 SP TYPE: PROST OTHR DR: Rohan Magallanes MD Tissues: 1 - PROSTATE NEEDLE BIOPSY 2 - PROSTATE NEEDLE BIOPSY 3 - PROSTATE NEEDLE BIOPSY 4 - PROSTATE NEEDLE BIOPSY 5 - PROSTATE NEEDLE BIOPSY 6 - PROSTATE NEEDLE BIOPSY 7 - PROSTATE NEEDLE BIOPSY 8 - PROSTATE NEEDLE BIOPSY 9 - PROSTATE NEEDLE BIOPSY 10 - PROSTATE NEEDLE BIOPSY 11 - PROSTATE NEEDLE BIOPSY 12 - PROSTATE NEEDLE BIOPSY Procedures: GROSS AND MICRO LEVEL 4 Comments: [id number]
== END 2019-09-10 02:09 ==
PROVIDERS: PCP Family Medicine; Visit Provider Urology
DX: C61 Malignant neoplasm of prostate (principal); N42.89 Other specified disorders of prostate; M89.8X8 Other specified disorders of bone, other site
CPT/HCPCS: 55700; 76942; 76872; 88305

== ENCOUNTER 2019-09-10 08:43 | Outpatient (REF) | payer BC, SELFPAY ==
--- NOTE | 2019-09-10 11:00 | W.PM.OP ---
Date of service: 09/10/19 Time of Service: 09:01 Operative Note Operative Note DATE OF PROCEDURE: 09/10/19 PRE-OP DIAGNOSIS: Abnormal Prostate exam, Bony lesions on CT scan POST-OP DIAGNOSIS: same PROCEDURE: Transrectal ultrasound guided biopsy of the prostate SURGEON: Twin Carbajal ANESTHESIA: local ESTIMATED BLOOD LOSS: 0 PATHOLOGY: other (Prostate biopsies sent for permanent section) Patient was transported to: other Patient's condition: stable Indications: This is a 49-year-old gentleman who had presented to the emergency room because of symptoms of flank pain. He was evaluated with a CT scan and was found to have multiple bony lesions worrisome for metastatic disease. He also had a firm irregular prostate on digital rectal exam. His PSA was just drawn today so the results are not yet available. He presents for ultrasound-guided biopsy of the prostate due to our concerns for metastatic prostate cancer Findings: Prostate volume 47 cc Asymmetry of the prostate with the right side being larger than the left Loss of architecture between transition and peripheral zones Procedure Description: The patient was brought to the radiology suite on 09/10/2019. He had been given pre-procedural antibiotics. He was placed in the left lateral position. A variable megahertz transducer was positioned transrectally and the prostate was imaged in transverse and longitudinal planes. The prostatic volume was calculated at 47 cc. The right side of the prostate was larger than the left. There was loss of architecture between the transition and peripheral zones. A periprosthetic nerve block was then performed using 1% Xylocaine without epinephrine. A total of 12 laterally directed biopsies were taken and sent to pathology for permanent section. Each biopsy was labeled and sent individually. The patient tolerated this procedure well with no complications. He will be started on Casodex just in case his biopsies do show adenocarcinoma of the prostate and he needs to start on Lupron. The Casodex will block the testosterone flare associated with the first dose of Lupron.
[2019-09-11 18:17] LABS: PSA, Diagnostic 708.5 ng/mL (0.0-3.5)
== END 2019-09-10 09:03 ==
LOC: LBN 08:43
PROVIDERS: PCP Family Medicine; Visit Provider Urology
DX: C61 Malignant neoplasm of prostate (principal)
CPT/HCPCS: 84153

== ENCOUNTER 2019-11-09 02:59 | Outpatient (CLI) | payer BC, SELFPAY ==
--- NOTE | 2019-11-09 | DI.CT_ITS ---
EXAM: CT CHEST W CLINICAL HISTORY: METASTATIC PROSTATE CA, STAGING EXAM,EXTENSIVE LYMPHADENOPATHY TECHNIQUE: Imaging Protocol: Axial computed tomography images with coronal and sagittal reformatted images were created and reviewed CONTRAST MATERIAL: Intravenous: Omnipaque 350 Contrast volume: 70 cc COMPARISON: CT CT CHEST/ABD/PEL W from 01/14/2019 FINDINGS: Tracheobronchial tree: Patent where visualized. Mediastinum and Ashley: 12 millimeter lymph node in the anterior mediastinal fat. No additional enlarg ed mediastinal or hilar lymph nodes. No axillary lymph nodes. Pulmonary parenchyma: No consolidation or dominant measurable mass. Pleura: No effusion or pneumothorax. Heart: The heart is not dilated. No coronary artery calcifications are seen. Aorta: Thoracic aorta non-dilated. Upper abdomen: Unremarkable. Bones: Diffuse abnormal bony sclerosis, consistent with metastatic disease. The findings appear new when compared with the previous exam. Degenerative disc changes are also present. There are old lef t posterior rib fractures. IMPRESSION: Diffuse sclerotic bony metastases. 12 millimeter anterior mediastinal lymph node. Clear lungs. RADIATION DOSE DELIVERED: 544.85mGy.cm Total DLP DATA REPOSITORY: All CT scans at this facility are submitted to the National Radiology Data Registry (NRDR) Dose Index Registry (DIR) with the [employer] (A[employer]). RADIATION OPTIMIZATION: All CT scans at this facility use at least one of these dose optimization te chniques: automated exposure control; mA and/or kV adjustment per patient size (includes targeted exa ms where dose is matched to clinical indication); or iterative reconstruction.
--- NOTE | 2019-11-09 10:00 | DI.NM_ITS ---
EXAM: NM BONE SCAN WHOLE BODY GRP CLINICAL HISTORY: METASTATIC PROSTATE CA, STAGING EXAM,C61,C79.51,BONY METS. TECHNIQUE: Injected Dose: 25 mCi Tc-99m MDP Delayed Images: 2-3 hours. COMPARISON: CT CT RENAL COLIC WO from 08/24/[address] CHEST W from 11/09/2019 FINDINGS: There is significantly increased uptake seen within the thoracic and lumbar spine as well as bilatera l ribs and sternum. Abnormal increased activity is also seen in the pelvis, both humeri as well as b oth femurs. IMPRESSION: 1. Widespread bony metastases in the axial and appendicular skeleton. DATA REPOSITORY:
[2019-11-09 10:33] LABS: Abs Immature Grans 0.04 k/cumm (0.0-0.09); Absolute Basophil Count 0.05 k/cumm (0.0-0.2); Absolute Lymphocyte Count 1.19 k/cumm (1.2-3.4); Absolute Monocyte Count 0.52 k/cumm (0.11-0.7); Absolute Neutrophil Count 2.59 k/cumm (1.2-6.7); Basophils % 1.1; Eosinophils % 2.2; HCT 33.7 % (40.0-50.0); HGB 11.4 g/dL (13.5-17.5); Immature Grans % 0.9 %; Lymphocytes % 26.5; Mean Corp. HGB Concentration 33.8 g/dL (32.0-36.0); Mean Corpuscular Hemoglobin 31.4 pg (27.0-33.0); Mean Corpuscular Volume 92.8 fL (80-95); Mean Platelet Volume 9.4 fL (8.0-11.0); Monocytes % 11.6; Neutrophils % 57.7; Platelet Count 276 x1000/uL (130-400); RBC 3.63 m/cumm (4.50-6.00); RBC Distribution Width 15.8 % (11.8-14.1); White Blood Cell Count 4.49 k/cumm (4.4-10.8)
[2019-11-09] MEDS: Omnipaque 350 MG/ML 100 ML BTL IJ (10:45)
[2019-11-09] MEDS: Normal Saline - Diluent 50 ML VIAL IV (10:49)
[2019-11-09] MEDS: Normal Saline Flush 10 ML SYR IVP (10:50)
[2019-11-09 11:29] LABS: ALT 38 U/L (16-63); AST 29 U/L (15-37); Albumin 4.3 g/dL (3.4-5.0); Alkaline Phosphatase 439 U/L (46-116); Anion Gap 9.6 mmol/L (3-11); BUN 19 mg/dL (7-18); Bilirubin, Total 0.4 mg/dL (0.2-1.0); CO2 25.4 mmol/L (21.0-32.0); CREATININE 0.88 mg/dL (0.70-1.30); Calcium 9.1 mg/dL (8.5-10.1); Chloride 104 mmol/L (98-107); Glucose 107 mg/dL (74-106); Potassium 4.3 mmol/L (3.5-5.1); Sodium 139 mmol/L (136-145); Total Protein 7.3 g/dL (6.4-8.2)
[2019-11-12 15:10] LABS: PSA, Ultrasensitive 1.1 ng/mL (<= 3.5)
[2019-11-14 03:57] LABS: Testosterone, Total 16 ng/dL (240-950)
== END 2019-11-09 03:19 ==
PROVIDERS: PCP Family Medicine; Visit Provider Internal Medicine
DX: C61 Malignant neoplasm of prostate (principal); C79.51 Secondary malignant neoplasm of bone; R59.0 Localized enlarged lymph nodes; Z12.89 Encounter for screening for malignant neoplasm of other sites
CPT/HCPCS: 78306; 80053; 84153; 84403; 71260; 85025; J3490

== ENCOUNTER 2019-12-18 02:02 | Outpatient (RCR) | payer BC, SELFPAY ==
[2019-12-18 09:17] LABS: Abs Immature Grans 0.12 k/cumm (0.0-0.09); Absolute Basophil Count 0.11 k/cumm (0.0-0.2); Absolute Eosinophil Count 0.03 k/cumm (0.0-0.7); Absolute Monocyte Count 0.61 k/cumm (0.11-0.7); Absolute Neutrophil Count 3.34 k/cumm (1.2-6.7); Basophils % 1.9; Eosinophils % 0.5; HCT 37.7 % (40.0-50.0); HGB 12.7 g/dL (13.5-17.5); Immature Grans % 2.1 %; Lymphocytes % 27.5; Mean Corp. HGB Concentration 33.7 g/dL (32.0-36.0); Mean Corpuscular Hemoglobin 30.8 pg (27.0-33.0); Mean Corpuscular Volume 91.5 fL (80-95); Mean Platelet Volume 9.3 fL (8.0-11.0); Monocytes % 10.5; Neutrophils % 57.5; Platelet Count 360 x1000/uL (130-400); RBC 4.12 m/cumm (4.50-6.00); RBC Distribution Width 13.4 % (11.8-14.1); White Blood Cell Count 5.81 k/cumm (4.4-10.8)
[2019-12-18 09:35] LABS: ALT 45 U/L (16-63); AST 23 U/L (15-37); Albumin 4.2 g/dL (3.4-5.0); Alkaline Phosphatase 166 U/L (46-116); Anion Gap 10.3 mmol/L (3-11); BUN 19 mg/dL (7-18); Bilirubin, Total 0.2 mg/dL (0.2-1.0); CO2 23.7 mmol/L (21.0-32.0); CREATININE 0.78 mg/dL (0.70-1.30); Calcium 9.5 mg/dL (8.5-10.1); Chloride 105 mmol/L (98-107); Glucose 142 mg/dL (74-106); Potassium 3.7 mmol/L (3.5-5.1); Sodium 139 mmol/L (136-145)
[2019-12-18 18:27] LABS: PSA, Diagnostic 0.4 ng/mL (0.0-3.5)
[2019-12-21 08:14] LABS: Testosterone, Total 14 ng/dL (240-950)
== END 2019-12-21 23:59 | disposition home or self-care (01) ==
LOC: INF 02:02
PROVIDERS: PCP Family Medicine; Visit Provider Internal Medicine
DX: C61 Malignant neoplasm of prostate (principal); C79.51 Secondary malignant neoplasm of bone
CPT/HCPCS: 36415; 80053; 84403; 84153; 85025

== ENCOUNTER 2020-01-15 01:25 | Outpatient (RCR) | payer BC, SELFPAY ==
[2020-01-08 10:35] LABS: Abs Immature Grans 0.31 10^3/uL (0.0-0.06); Absolute Basophil Count 0.11 10^3/uL (0.0-0.2); Absolute Eosinophil Count 0.07 10^3/uL (0.0-0.7); Absolute Lymphocyte Count 1.61 10^3/uL (1.2-3.4); Absolute Monocyte Count 0.85 10^3/uL (0.1-0.8); Absolute Neutrophil Count 3.39 10^3/uL (1.2-6.7); Basophils % 1.7; Eosinophils % 1.1; HCT 38.1 % (40.0-50.0); HGB 13.1 g/dL (13.5-17.5); Immature Grans % 4.9; Lymphocytes % 25.4; MCH 31.2 pg (27.0-33.0); MCHC 34.4 % (32.0-36.0); MCV 90.7 fL (80-95); MPV 9.5 fL (8.0-11.0); Monocytes % 13.4; Neutrophils % 53.5; Nucleated RBC 0 %; Platelet Count 311 10^3/uL (130-400); RDW 12.9 % (11.8-14.1); RDW-SD 41.8 fL; WBC 6.34 10^3/uL (4.4-10.8)
[2020-01-08 10:56] LABS: ALT 48 U/L (16-63); AST 23 U/L (15-37); Albumin 4.1 g/dL (3.4-5.0); Alkaline Phosphatase 125 U/L (46-116); Anion Gap 11.1 mmol/L (3-11); BUN 18 mg/dL (7-18); Bilirubin, Total 0.2 mg/dL (0.2-1.0); CO2 24.9 mmol/L (21.0-32.0); Calcium 9.2 mg/dL (8.5-10.1); Chloride 105 mmol/L (98-107); Glucose 123 mg/dL (74-106); Potassium 3.8 mmol/L (3.5-5.1); Sodium 141 mmol/L (136-145); Total Protein 7.1 g/dL (6.4-8.2)
[2020-01-09 15:12] LABS: PSA, Ultrasensitive 0.18 ng/mL (<= 3.5)
[2020-01-10 11:06] LABS: Testosterone, Total 13 ng/dL (240-950)
== END 2020-01-21 23:59 | disposition home or self-care (01) ==
LOC: INF 01:25
PROVIDERS: PCP Family Medicine; Visit Provider Internal Medicine
DX: C61 Malignant neoplasm of prostate (principal); C79.51 Secondary malignant neoplasm of bone
CPT/HCPCS: 36415; 80053; 84153; 84403; 85025

== ENCOUNTER 2020-02-19 10:30 | Outpatient (RCR) | payer BC, SELFPAY ==
[2020-01-29 10:18] LABS: Abs Immature Grans 0.32 10^3/uL (0.0-0.06); Absolute Basophil Count 0.11 10^3/uL (0.0-0.2); Absolute Eosinophil Count 0.09 10^3/uL (0.0-0.7); Absolute Lymphocyte Count 1.48 10^3/uL (1.2-3.4); Absolute Neutrophil Count 4.51 10^3/uL (1.2-6.7); Basophils % 1.5; Eosinophils % 1.2; HCT 37.4 % (40.0-50.0); HGB 12.6 g/dL (13.5-17.5); Immature Grans % 4.3; MCH 30.7 pg (27.0-33.0); MCHC 33.7 % (32.0-36.0); MCV 91.2 fL (80-95); MPV 9.5 fL (8.0-11.0); Monocytes % 12.1; Neutrophils % 60.9; Nucleated RBC 0 %; Platelet Count 329 10^3/uL (130-400); RDW-SD 43.8 fL; WBC 7.41 10^3/uL (4.4-10.8)
[2020-01-29 10:29] LABS: ALT 50 U/L (16-63); AST 26 U/L (15-37); Albumin 4.2 g/dL (3.4-5.0); Alkaline Phosphatase 106 U/L (46-116); Anion Gap 6.7 mmol/L (3-11); BUN 17 mg/dL (7-18); Bilirubin, Total 0.3 mg/dL (0.2-1.0); CO2 28.3 mmol/L (21.0-32.0); Calcium 9.4 mg/dL (8.5-10.1); Chloride 102 mmol/L (98-107); Glucose 112 mg/dL (74-106); Potassium 3.9 mmol/L (3.5-5.1); Sodium 137 mmol/L (136-145); Total Protein 7.4 g/dL (6.4-8.2)
[2020-02-19 10:49] LABS: Absolute Eosinophil Count 0.04 10^3/uL (0.0-0.7); Absolute Neutrophil Count 4.05 10^3/uL (1.2-6.7); Basophils % 1.5; Eosinophils % 0.6; HCT 37.2 % (40.0-50.0); HGB 12.4 g/dL (13.5-17.5); Lymphocytes % 22.4; MCH 30.1 pg (27.0-33.0); MCHC 33.3 % (32.0-36.0); MCV 90.3 fL (80-95); MPV 9.6 fL (8.0-11.0); Neutrophils % 60.5; Nucleated RBC 0 %; Platelet Count 300 10^3/uL (130-400); RBC 4.12 10^6/uL (4.36-5.78); RDW 13.7 % (11.8-14.1); RDW-SD 45.1 fL; WBC 6.69 10^3/uL (4.4-10.8)
[2020-02-19 11:08] LABS: ALT 36 U/L (16-63); AST 23 U/L (15-37); Alkaline Phosphatase 88 U/L (46-116); Anion Gap 8.4 mmol/L (3-11); BUN 17 mg/dL (7-18); Bilirubin, Total 0.3 mg/dL (0.2-1.0); CO2 26.6 mmol/L (21.0-32.0); CREATININE 0.85 mg/dL (0.70-1.30); Calcium 9.1 mg/dL (8.5-10.1); Chloride 105 mmol/L (98-107); Glucose 112 mg/dL (74-106); Potassium 3.9 mmol/L (3.5-5.1); Sodium 140 mmol/L (136-145)
[2020-02-20 16:42] LABS: PSA, Ultrasensitive 0.08 ng/mL (<= 3.5)
[2020-02-22 14:44] LABS: Testosterone, Total 13 ng/dL (240-950)
== END 2020-02-20 23:59 | disposition home or self-care (01) ==
LOC: INF 10:30
PROVIDERS: PCP Family Medicine; Visit Provider Internal Medicine
DX: C61 Malignant neoplasm of prostate (principal); C79.51 Secondary malignant neoplasm of bone
CPT/HCPCS: 36415; 80053; 84153; 84403; 85025

== ENCOUNTER 2020-03-11 00:58 | Outpatient (RCR) | payer BC, SELFPAY ==
[2020-03-11 08:11] LABS: Abs Immature Grans 0.21 10^3/uL (0.0-0.06); Absolute Eosinophil Count 0.06 10^3/uL (0.0-0.7); Absolute Lymphocyte Count 1.56 10^3/uL (1.2-3.4); Absolute Monocyte Count 0.69 10^3/uL (0.1-0.8); Absolute Neutrophil Count 3.58 10^3/uL (1.2-6.7); Basophils % 1.6; HCT 37.4 % (40.0-50.0); HGB 12.7 g/dL (13.5-17.5); Immature Grans % 3.4; Lymphocytes % 25.2; MCH 30.2 pg (27.0-33.0); MPV 9.6 fL (8.0-11.0); Monocytes % 11.1; Neutrophils % 57.7; Nucleated RBC 0 %; Platelet Count 300 10^3/uL (130-400); RDW 13.8 % (11.8-14.1); RDW-SD 44.6 fL
[2020-03-11 08:23] LABS: ALT 44 U/L (16-63); AST 31 U/L (15-37); Albumin 3.9 g/dL (3.4-5.0); Alkaline Phosphatase 82 U/L (46-116); Anion Gap 9.2 mmol/L (3-11); BUN 15 mg/dL (7-18); Bilirubin, Total 0.3 mg/dL (0.2-1.0); CO2 25.8 mmol/L (21.0-32.0); CREATININE 0.85 mg/dL (0.70-1.30); Calcium 9.5 mg/dL (8.5-10.1); Chloride 104 mmol/L (98-107); Glucose 115 mg/dL (74-106); Potassium 3.9 mmol/L (3.5-5.1); Sodium 139 mmol/L (136-145); Total Protein 7.1 g/dL (6.4-8.2)
== END 2020-03-22 23:59 | disposition home or self-care (01) ==
LOC: INF 00:58
PROVIDERS: PCP Emergency Medicine; Visit Provider Internal Medicine
DX: C61 Malignant neoplasm of prostate (principal); C79.51 Secondary malignant neoplasm of bone
CPT/HCPCS: 36415; 80053; 84153; 85025

== ENCOUNTER 2020-04-11 04:02 | Outpatient (CLI) | payer BC, SELFPAY ==
--- NOTE | 2020-04-11 | DI.NM_ITS ---
EXAM: [place] BONE SCAN WHOLE BODY GRP CLINICAL HISTORY: METASTATIC PROSTATE CA,C61,S/P CHEMO, RESTAGING EXAM. TECHNIQUE: Injected Dose: 25 mCi Tc-99m MDP Delayed Images: 2-3 hours. COMPARISON: [facility] BONE SCAN WHOLE BODY GRP from 11/09/2019 FINDINGS: Symmetric axial uptake. Bilateral renal excretion is identified. There is again seen widespread radio tracer uptake in the axial and appendicular skeleton consistent with osseous metastatic disease. The degree of uptake appears somewhat decreased compared to the prior examination. No definite new foci of radiotracer uptake are seen. There is activity seen in the kidneys and urinary bladder. IMPRESSION: 1. Findings consistent with widespread osseous metastatic disease. DATA REPOSITORY:
--- NOTE | 2020-04-11 | DI.CT_ITS ---
EXAM: CT CHEST/ABD/PEL W CLINICAL HISTORY: METASTATIC PROSTATE CA,C61,S/P CHEMO, RESTAGING EXAM TECHNIQUE: Imaging Protocol: Axial computed tomography images with coronal and sagittal reformatted images were created and reviewed CONTRAST MATERIAL: Intravenous: Omnipaque 350 Contrast volume:125 mL Oral: Yes COMPARISON: CT CT CHEST/ABD/PEL W from 01/14/[address] RENAL COLIC WO from 08/24/[address] CHEST W from 11/09/2019 FINDINGS: CHEST: Tracheobronchial tree: Patent where visualized. Mediastinum and Ashley: No dominant adenopathy or fluid collection. Stable 1.2 cm anterior mediastinal lymph node. Pulmonary parenchyma: No consolidation or dominant measurable mass. No architectural distortion. Pleura: No effusion or pneumothorax. Heart: The heart is not dilated. No coronary artery calcifications are seen. No significant pericardi al effusion. Aorta: Thoracic aorta non-dilated. Lymph nodes: Within normal limits. Bones:Widespread sclerotic metastatic disease.Old healed left rib fractures. Degenerative changes in the spine. Soft tissues: Unremarkable. ABDOMEN: Liver: Normal density. No measurable mass. Portal, Superior Mesenteric, and Splenic Veins: Unremarkable. Gallbladder and Biliary Tract: No radiodense calculus or dilation. Pancreas: Normal density, no abnormal calcifications or inflammatory process. Spleen: Normal. Adrenals: No masses seen. Kidneys: Normal size, contour and axis. No radiodense stones or obstructive uropathy. No masses seen. Abdominal Aorta: Abdominal portion non-dilated. Bowel: No obstruction or bowel wall thickening. Appendix is unremarkable. Peritoneal Cavity: No ascites, collection or mesenteric inflammatory response. Lymph Nodes: Within normal limits. Bones: Diffuse sclerotic metastatic disease is present. No acute fracture or subluxation. Stable gr shady 1 pseudo spondylolisthesis of L4 on L5 is noted. Soft Tissues: Bilateral fat containing umbilical hernia. PELVIS: Bladder: Symmetric distention, no gross wall thickening. Reproductive Organs: Unremarkable as visualized. Lymph Nodes: Within normal limits. Bones: Diffuse sclerotic metastatic disease. IMPRESSION: 1. Findings of diffuse sclerotic metastatic disease. 2. Stable anterior mediastinal lymph node. RADIATION DOSE DELIVERED: 2,196.56mGy.cm Total DLP DATA REPOSITORY: All CT scans at this facility are submitted to the National Radiology Data Registry (NRDR) Dose Index Registry (DIR) with the [employer] (ACR). RADIATION OPTIMIZATION: All CT scans at this facility use at least one of these dose optimization te chniques: automated exposure control; mA and/or kV adjustment per patient size (includes targeted exa ms where dose is matched to clinical indication); or iterative reconstruction.
[2020-04-11 08:36] LABS: Abs Immature Grans 0.04 10^3/uL (0.0-0.06); Absolute Basophil Count 0.07 10^3/uL (0.0-0.2); Absolute Eosinophil Count 0.23 10^3/uL (0.0-0.7); Absolute Monocyte Count 0.55 10^3/uL (0.1-0.8); Absolute Neutrophil Count 4.34 10^3/uL (1.2-6.7); Basophils % 1.1; Eosinophils % 3.6; HCT 37.6 % (40.0-50.0); HGB 12.4 g/dL (13.5-17.5); Immature Grans % 0.6; Lymphocytes % 18.7; MCH 30.2 pg (27.0-33.0); MCV 91.5 fL (80-95); MPV 10.1 fL (8.0-11.0); Monocytes % 8.6; Neutrophils % 67.4; Nucleated RBC 0 %; Platelet Count 251 10^3/uL (130-400); RBC 4.11 10^6/uL (4.36-5.78); RDW 14.2 % (11.8-14.1); RDW-SD 47.5 fL; WBC 6.43 10^3/uL (4.4-10.8)
[2020-04-11] MEDS: Omnipaque 350 MG/ML 50 ML BTL IJ (08:40)
[2020-04-11] MEDS: Breeza Beverage 473 ML BTL PO ×2 (08:44)
[2020-04-11 08:58] LABS: ALT 34 U/L (16-63); AST 18 U/L (15-37); Albumin 3.9 g/dL (3.4-5.0); Alkaline Phosphatase 79 U/L (46-116); Anion Gap 8.2 mmol/L (3-11); BUN 16 mg/dL (7-18); Bilirubin, Total 0.3 mg/dL (0.2-1.0); CO2 25.8 mmol/L (21.0-32.0); CREATININE 0.78 mg/dL (0.70-1.30); Calcium 9.1 mg/dL (8.5-10.1); Chloride 104 mmol/L (98-107); Glucose 111 mg/dL (74-106); Potassium 3.7 mmol/L (3.5-5.1); Sodium 138 mmol/L (136-145); Total Protein 6.8 g/dL (6.4-8.2)
[2020-04-11] MEDS: Omnipaque 350 MG/ML 100 ML BTL IV (09:53)
[2020-04-11] MEDS: Normal Saline - Diluent 50 ML VIAL IV (09:58)
[2020-04-11] MEDS: Omnipaque 350 MG/ML 100 ML BTL 50 ML IV (09:59)
[2020-04-14 10:18] LABS: PSA, Ultrasensitive 0.31 ng/mL (<= 3.5)
[2020-04-15 13:23] LABS: Testosterone, Total 12 ng/dL (240-950)
== END 2020-04-11 04:22 ==
PROVIDERS: PCP Emergency Medicine; Visit Provider Internal Medicine
DX: C61 Malignant neoplasm of prostate (principal); C79.51 Secondary malignant neoplasm of bone
CPT/HCPCS: 74177; 78306; 80053; 84153; 84403; 71260; 85025; J3490; Q9967

== ENCOUNTER 2020-04-15 02:11 | Outpatient (RCR) | payer BC, SELFPAY | END 2020-04-21 23:59 | disposition home or self-care (01) | LOC: INF 02:11 | PROVIDERS: PCP Emergency Medicine; Visit Provider Internal Medicine ==

== ENCOUNTER 2020-05-09 03:30 | Outpatient (CLI) | payer BC, SELFPAY ==
[2020-05-09 08:46] LABS: Abs Immature Grans 0.02 10^3/uL (0.0-0.06); Absolute Basophil Count 0.05 10^3/uL (0.0-0.2); Absolute Eosinophil Count 0.08 10^3/uL (0.0-0.7); Absolute Lymphocyte Count 1.24 10^3/uL (1.2-3.4); Absolute Monocyte Count 0.51 10^3/uL (0.1-0.8); Absolute Neutrophil Count 3.68 10^3/uL (1.2-6.7); Basophils % 0.9; Eosinophils % 1.4; HCT 39.3 % (40.0-50.0); HGB 13.2 g/dL (13.5-17.5); Immature Grans % 0.4; Lymphocytes % 22.2; MCH 30.3 pg (27.0-33.0); MCHC 33.6 % (32.0-36.0); MCV 90.3 fL (80-95); MPV 9.9 fL (8.0-11.0); Monocytes % 9.1; Nucleated RBC 0 %; Platelet Count 264 10^3/uL (130-400); RBC 4.35 10^6/uL (4.36-5.78); RDW 13.5 % (11.8-14.1); WBC 5.58 10^3/uL (4.4-10.8)
[2020-05-09 09:39] LABS: ALT 38 U/L (16-63); AST 23 U/L (15-37); Albumin 4.1 g/dL (3.4-5.0); Alkaline Phosphatase 89 U/L (46-116); Anion Gap 7.9 mmol/L (3-11); BUN 15 mg/dL (7-18); Bilirubin, Total 0.5 mg/dL (0.2-1.0); CO2 25.1 mmol/L (21.0-32.0); CREATININE 0.85 mg/dL (0.70-1.30); Chloride 107 mmol/L (98-107); Glucose 112 mg/dL (74-106); Potassium 4.4 mmol/L (3.5-5.1); Sodium 140 mmol/L (136-145); Total Protein 6.9 g/dL (6.4-8.2)
[2020-05-12 09:57] LABS: PSA, Ultrasensitive 0.79 ng/mL (<= 3.5)
[2020-05-13 15:57] LABS: Testosterone, Total <7.0 ng/dL (240-950)
== END 2020-05-09 03:50 ==
PROVIDERS: PCP Emergency Medicine; Visit Provider Internal Medicine
DX: C61 Malignant neoplasm of prostate (principal); C79.51 Secondary malignant neoplasm of bone
CPT/HCPCS: 36415; 80053; 84153; 84403; 85025

== ENCOUNTER 2020-05-22 03:10 | Outpatient (CLI) | payer BC, SELFPAY ==
[2020-05-22 08:09] LABS: Abs Immature Grans 0.02 10^3/uL (0.0-0.06); Absolute Basophil Count 0.06 10^3/uL (0.0-0.2); Absolute Eosinophil Count 0.07 10^3/uL (0.0-0.7); Absolute Lymphocyte Count 1.25 10^3/uL (1.2-3.4); Absolute Neutrophil Count 4.17 10^3/uL (1.2-6.7); Eosinophils % 1.2; HGB 13.2 g/dL (13.5-17.5); Immature Grans % 0.3; Lymphocytes % 20.9; MCH 30.8 pg (27.0-33.0); MCHC 33.8 % (32.0-36.0); MCV 91.1 fL (80-95); MPV 10.2 fL (8.0-11.0); Monocytes % 6.7; Neutrophils % 69.9; Nucleated RBC 0 %; Platelet Count 268 10^3/uL (130-400); RBC 4.28 10^6/uL (4.36-5.78); RDW 13.6 % (11.8-14.1); RDW-SD 44.9 fL; WBC 5.97 10^3/uL (4.4-10.8)
[2020-05-22 09:11] LABS: ALT 36 U/L (16-63); AST 18 U/L (15-37); Albumin 4.1 g/dL (3.4-5.0); Alkaline Phosphatase 100 U/L (46-116); Anion Gap 10.2 mmol/L (3-11); BUN 18 mg/dL (7-18); Bilirubin, Total 0.4 mg/dL (0.2-1.0); CO2 22.8 mmol/L (21.0-32.0); CREATININE 0.87 mg/dL (0.70-1.30); Calcium 9.3 mg/dL (8.5-10.1); Chloride 107 mmol/L (98-107); Glucose 115 mg/dL (74-106); Potassium 4.2 mmol/L (3.5-5.1); Sodium 140 mmol/L (136-145); Total Protein 6.8 g/dL (6.4-8.2)
[2020-05-26 13:48] LABS: PSA, Ultrasensitive 0.88 ng/mL (<= 3.5)
[2020-05-26 14:42] LABS: Testosterone, Total <7.0 ng/dL (240-950)
== END 2020-05-22 03:30 ==
PROVIDERS: PCP Emergency Medicine; Visit Provider Internal Medicine
DX: C61 Malignant neoplasm of prostate (principal); C79.51 Secondary malignant neoplasm of bone
CPT/HCPCS: 36415; 80053; 84153; 84403; 85025

== ENCOUNTER 2020-06-20 01:41 | Outpatient (CLI) | payer OTHER, SELFPAY ==
[2020-06-20 08:03] LABS: Abs Immature Grans 0.06 10^3/uL (0.0-0.06); Absolute Basophil Count 0.08 10^3/uL (0.0-0.2); Absolute Eosinophil Count 0.19 10^3/uL (0.0-0.7); Absolute Lymphocyte Count 1.34 10^3/uL (1.2-3.4); Absolute Monocyte Count 0.75 10^3/uL (0.1-0.8); Absolute Neutrophil Count 5.77 10^3/uL (1.2-6.7); Eosinophils % 2.3; HCT 40.3 % (40.0-50.0); HGB 13.7 g/dL (13.5-17.5); Immature Grans % 0.7; Lymphocytes % 16.4; MCV 91.2 fL (80-95); Monocytes % 9.2; Neutrophils % 70.4; Nucleated RBC 0 %; Platelet Count 271 10^3/uL (130-400); RBC 4.42 10^6/uL (4.36-5.78); RDW 13.2 % (11.8-14.1); RDW-SD 43.6 fL; WBC 8.19 10^3/uL (4.4-10.8)
[2020-06-20 08:41] LABS: ALT 33 U/L (16-63); AST 19 U/L (15-37); Albumin 3.9 g/dL (3.4-5.0); Alkaline Phosphatase 124 U/L (46-116); Anion Gap 9.1 mmol/L (3-11); BUN 17 mg/dL (7-18); Bilirubin, Total 0.5 mg/dL (0.2-1.0); CO2 24.9 mmol/L (21.0-32.0); Calcium 9.1 mg/dL (8.5-10.1); Chloride 107 mmol/L (98-107); Glucose 125 mg/dL (74-106); Potassium 3.8 mmol/L (3.5-5.1); Sodium 141 mmol/L (136-145); Total Protein 6.8 g/dL (6.4-8.2)
[2020-06-21 13:55] LABS: PSA, Ultrasensitive 0.81 ng/mL (<= 3.5)
[2020-06-26 13:32] LABS: Testosterone, Total 7.9 ng/dL (240-950)
== END 2020-06-20 02:01 ==
PROVIDERS: PCP Emergency Medicine; Visit Provider Internal Medicine
DX: C61 Malignant neoplasm of prostate (principal); C79.51 Secondary malignant neoplasm of bone
CPT/HCPCS: 36415; 80053; 84153; 84403; 85025

== ENCOUNTER 2020-10-03 03:42 | Outpatient (CLI) | payer OTHER, SELFPAY ==
[2020-10-03 07:32] LABS: Abs Immature Grans 0.06 10^3/uL (0.0-0.06); Absolute Basophil Count 0.07 10^3/uL (0.0-0.2); Absolute Eosinophil Count 0.23 10^3/uL (0.0-0.7); Absolute Lymphocyte Count 1.64 10^3/uL (1.2-3.4); Absolute Monocyte Count 0.56 10^3/uL (0.1-0.8); Absolute Neutrophil Count 5.42 10^3/uL (1.2-6.7); Basophils % 0.9; Eosinophils % 2.9; HCT 38.7 % (40.0-50.0); HGB 13.1 g/dL (13.5-17.5); Immature Grans % 0.8; Lymphocytes % 20.6; MCH 30.8 pg (27.0-33.0); MCHC 33.9 % (32.0-36.0); MCV 91.1 fL (80-95); Neutrophils % 67.8; Nucleated RBC 0 %; Platelet Count 279 10^3/uL (130-400); RBC 4.25 10^6/uL (4.36-5.78); RDW 12.5 % (11.8-14.1); RDW-SD 41.2 fL; WBC 7.98 10^3/uL (4.4-10.8)
[2020-10-03 08:39] LABS: ALT 35 U/L (16-63); AST 19 U/L (15-37); Albumin 3.8 g/dL (3.4-5.0); Alkaline Phosphatase 129 U/L (46-116); Anion Gap 11.6 mmol/L (3-11); BUN 13 mg/dL (7-18); Bilirubin, Total 0.4 mg/dL (0.2-1.0); CO2 23.4 mmol/L (21.0-32.0); CREATININE 0.9 mg/dL (0.70-1.30); Calcium 8.8 mg/dL (8.5-10.1); Chloride 109 mmol/L (98-107); Glucose 130 mg/dL (74-106); Potassium 3.8 mmol/L (3.5-5.1); Sodium 144 mmol/L (136-145); Total Protein 6.5 g/dL (6.4-8.2)
[2020-10-06 11:14] LABS: PSA, Ultrasensitive 2.7 ng/mL (<= 3.5)
[2020-10-07 10:14] LABS: Testosterone, Total <7.0 ng/dL (240-950)
== END 2020-10-03 03:43 | disposition home or self-care (01) ==
LOC: LBO 03:42
PROVIDERS: Visit Provider Internal Medicine
DX: C61 Malignant neoplasm of prostate (principal); C79.51 Secondary malignant neoplasm of bone
CPT/HCPCS: 36415; 80053; 84153; 84403; 85025

== ENCOUNTER 2020-11-21 01:41 | Outpatient (CLI) | payer OTHER, SELFPAY ==
[2020-11-21 07:29] LABS: HCT 39.3 % (40.0-50.0); HGB 13.2 g/dL (13.5-17.5); MCH 31.1 pg (27.0-33.0); MCHC 33.6 % (32.0-36.0); MCV 92.7 fL (80-95); MPV 9.9 fL (8.0-11.0); Platelet Count 298 10^3/uL (130-400); RBC 4.24 10^6/uL (4.36-5.78); RDW 12.2 % (11.8-14.1); RDW-SD 41.5 fL; WBC 8.37 10^3/uL (4.4-10.8)
[2020-11-21 08:45] LABS: ALT 28 U/L (16-63); AST 19 U/L (15-37); Alkaline Phosphatase 137 U/L (46-116); Anion Gap 13.1 mmol/L (3-11); BUN 16 mg/dL (7-18); Bilirubin, Total 0.5 mg/dL (0.2-1.0); CO2 21.9 mmol/L (21.0-32.0); CREATININE 0.9 mg/dL (0.70-1.30); Calcium 9.1 mg/dL (8.5-10.1); Calculated LDL 134 mg/dL (<100); Chloride 106 mmol/L (98-107); Cholesterol 196 mg/dL (<200); Glucose 118 mg/dL (74-106); HDL Cholesterol 36 mg/dL (40-60); Potassium 4.2 mmol/L (3.5-5.1); Sodium 141 mmol/L (136-145); Total Protein 6.8 g/dL (6.4-8.2); Triglyceride 132 mg/dL (<150)
[2020-11-26 14:01] LABS: Testosterone, Total <7.0 ng/dL (240-950)
== END 2020-11-21 01:42 | disposition home or self-care (01) ==
LOC: LBO 01:41
PROVIDERS: Internal Medicine; PCP Student in an Organized Health Care Education/Training Program; Visit Provider Student in an Organized Health Care Education/Training Program
DX: I10 Essential (primary) hypertension (principal); Z13.220 Encounter for screening for lipoid disorders; E87.8 Other disorders of electrolyte and fluid balance, not elsewhere classified; E86.0 Dehydration; C61 Malignant neoplasm of prostate; D70.1 Agranulocytosis secondary to cancer chemotherapy
CPT/HCPCS: 36415; 80053; 80061; 84153; 84403; 85027; 83735

== ENCOUNTER 2020-11-22 13:13 | Emergency (ER) | payer OTHER, SELFPAY ==
[2020-11-22 13:17] VITALS: BP 159/101; PULSE 97; RESP 18; TEMP 36.3; O2SAT 98
--- NOTE | 2020-11-22 13:36 | ED.GENADUL_ITS ---
Discharge Plan Disposition Patient Disposition: HOME Condition: Improving Discharge Details Clinical Impression: Laceration of left hand Primary Care Provider: Renita Bowers ED Provider: Gilberto Richardson Home Meds and New Rx's Prescriptions: Continued abiraterone 250 mg tablet 1,000 mg PO DAILY RF: 0 prednisone 5 mg tablet 5 mg PO DAILY RF: 0 Lupron Depot (3 month) 22.5 mg syringe kit 22.5 mg IM [id number] RF: 0 prochlorperazine maleate 10 mg tablet 10 mg PO Q6H PRNRF: 0 Discharge Instructions Instructions: Laceration (ED) Additional Instructions: Wear splint to protect the area while awake and out of bed. May remove at bedtime or for bathing. May gently wash with soap and water, pat dry and replace dressing once daily. Return if develop a fever, redness or foul-smelling discharge from the wound. Return in 7 to 10 days time for suture removal. Medical Decision Making 50-year-old male presents with left hand laceration while he was trying to pull a piece of wood out of a wood splitter that was turned off. He lacerated the dorsum of the right hand. There is no deep tissue injury, no motor or sensory dysfunction. The wound was anesthetized, irrigated and examined in a bloodless field without evidence of foreign body. Suture repair was performed with 9 interrupted 4-0 nylon sutures with good wound edge approximation. Discussed with patient anticipated course of resolution. 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 He is stable and appropriate for discharge home at this time, he will return for suture removal in 7 to 10 days time. HPI General Mode of arrival: ambulatory . Date/Time Provider Initiated Documentation: 11/22/20 13:36 . Limitations to Documentation: no limitations . Information obtained by: patient . History of Present Illness 50 year old M presents to the emergency department with the chief complaint of left hand laceration, described as moderate, and is localized to the left and upper extremity. Patient reports no radiation. Patient started experiencing this minute(s) and it has been constant. No relieving factors improve symptom(s), No exacerbating factors reported . Patient notes denies weakness. Patient did receive the following treatments prior to arrival, none Related Data Home Medications Medication Instructions Recorded Confirmed abiraterone 250 mg tablet 1,000 mg PO DAILY 10/30/20 11/22/20 leuprolide (3 month) 22.5 mg (3 22.5 mg IM [id number] 10/30/20 11/22/20 month) intramuscular syringe kit prednisone 5 mg tablet 5 mg PO DAILY 10/30/20 11/22/20 prochlorperazine maleate 10 mg 10 mg PO Q6H PRN 10/30/20 tablet Allergies Allergy/AdvReac Type Severity Reaction Status Date / Time No Known Allergies Allergy Unverified 11/22/20 13:21 General Stated Complaint: Laceration HOOD: 4 Review of Systems Narrative: Tetanus up-to-date. No other injury. No motor weakness and no numbness or tingling. 4 systems reviewed and otherwise negative [facility] Medical History Numbness of finger Left middle finger, possibly 2' medial nn (Hx carpal tunnel) Skin cancer Skin cancer of face Cheek, s/p Moh's Surgery Family History Mother No problems noted. Father No problems noted. Sister No problems noted. Sister No problems noted. Brother No problems noted. Grandfather No problems noted. Grandfather Neoplasm Grandmother No problems noted. Grandmother Neoplasm Daughter No problems noted. Daughter No problems noted. 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 Pleasant, well groomed, interactive. HEAD: Normocephalic, atraumatic ENT: External ear exam unremarkable EXT: Full ROM, no edema, no rash. There is a curvilinear laceration on the dorsum of the left hand overlying the base of the thumb. Distal motor function is normal, sensation normal and capillary fill less than 2 seconds. No foreign body appreciated. Neuro: Grossly normal neurologic exam, conversant, interactive. Psych: Speech fluent, thoughts congruent, affect normal Course Vital Signs Vital signs: Vital Signs Temperature 36.3 C L 11/22/20 13:17 Pulse 97 H 11/22/20 13:17 Respiratory Rate 18 11/22/20 13:17 Blood Pressure 159/101 H 11/22/20 13:17 Pulse Oximetry 98 11/22/20 13:17 Temperature 36.3 C L 11/22/20 13:17 Temperature Source Temporal Artery Scan 11/22/20 13:17 Pulse 97 H 11/22/20 13:17 Respiratory Rate 18 11/22/20 13:17 Respiratory Effort Non-Labored 11/22/20 13:22 Blood Pressure 159/101 H 11/22/20 13:17 Blood Pressure Position Sitting 11/22/20 13:17 Pulse Oximetry 98 11/22/20 13:17 Oxygen Delivery Method Room Air 11/22/20 13:17 Oxygen Flow Rate 0 11/22/20 13:17 Pain Level 5 11/22/20 13:22 Procedures Laceration Laceration 1: Site: hand Side (If applicable): left Size (cm): 4 Description: linear Depth: simple, single layer Local Anesthetic: Lidocaine 1% Amount of anesthesia used (mL): 2 Pre-repair: wound explored, irrigated extensively and deep structures intact Skin layer closed with: nylon Size (cm): 4-0 Number of sutures: 9 Technique: simple, interrupted
== END 2020-11-22 13:57 | disposition home or self-care (01) ==
PROVIDERS: Emergency Provider Emergency Medicine; PCP Student in an Organized Health Care Education/Training Program
DX: S61.512A Laceration without foreign body of left wrist, initial encounter (principal); W27.8XXA Contact with other nonpowered hand tool, initial encounter
CPT/HCPCS: 12002

== ENCOUNTER 2021-01-07 02:40 | Outpatient (CLI) | payer OTHER, SELFPAY ==
[2021-01-07 16:41] LABS: ALT 29 U/L (16-63); AST 23 U/L (15-37); Albumin 3.9 g/dL (3.4-5.0); Alkaline Phosphatase 141 U/L (46-116); Anion Gap 8.5 mmol/L (3-11); BUN 12 mg/dL (7-18); Bilirubin, Total 0.5 mg/dL (0.2-1.0); CO2 25.5 mmol/L (21.0-32.0); CREATININE 0.9 mg/dL (0.70-1.30); Calcium 9.2 mg/dL (8.5-10.1); Chloride 108 mmol/L (98-107); Glucose 109 mg/dL (74-106); Potassium 4.1 mmol/L (3.5-5.1); Sodium 142 mmol/L (136-145); Total Protein 6.6 g/dL (6.4-8.2)
[2021-01-08 13:48] LABS: PSA, Ultrasensitive 15.3 ng/mL (<= 3.5)
[2021-01-09 12:12] LABS: Testosterone, Total <7.0 ng/dL (240-950)
== END 2021-01-07 02:41 | disposition home or self-care (01) ==
LOC: LBO 02:40
PROVIDERS: PCP Student in an Organized Health Care Education/Training Program; Visit Provider Internal Medicine
DX: C61 Malignant neoplasm of prostate (principal)
CPT/HCPCS: 36415; 80053; 84153; 84403

== ENCOUNTER 2021-04-17 00:20 | Outpatient (CLI) | payer OTHER, SELFPAY ==
--- NOTE | 2021-04-17 10:15 | DI.NM_ITS ---
Exam(s) [place] BONE SCAN WHOLE BODY GRP EXAM: [place] BONE SCAN WHOLE BODY GRP CLINICAL HISTORY: PROSTATE CA METS TO MULTIPLE SITES, C61, RESTAGING. TECHNIQUE: Injected Dose: 25 mCi Tc-99m MDP Delayed Images: 2-3 hours. COMPARISON: [facility] BONE SCAN WHOLE BODY GRP from 11/09/[address] CHEST W from 11/09/2019 [facility] BONE SCAN WHOLE BODY GRP from 11/09/2019 [facility] BONE SCAN WHOLE BODY GRP from 04/11/2020 [facility] BONE SCAN WHOLE BODY GRP from 04/11/2020 FINDINGS: Symmetric axial uptake. Bilateral renal excretion is identified. There has been interval increase in the intensity of the abnormally increased activity in multiple thoracic and lumbar vertebral bodies a s well as sacrum, pelvis and bilateral ribs. Activity is also seen in the sternum, shoulders and sku ll. Lesions are noted in both femurs. IMPRESSION: 1. Interval increase in activity in multiple sites in the axial and appendicular skeleton. DATA REPOSITORY:
[2021-04-18 12:39] LABS: PSA, Ultrasensitive 170 ng/mL (<= 3.5)
[2021-04-20 11:32] LABS: Testosterone, Total <7.0 ng/dL (240-950)
== END 2021-04-17 00:40 ==
PROVIDERS: PCP Student in an Organized Health Care Education/Training Program; Visit Provider Nurse Practitioner Adult Health
DX: C61 Malignant neoplasm of prostate (principal); R93.89 Abnormal findings on diagnostic imaging of other specified body structures
CPT/HCPCS: 78306; 84153; 84403

== ENCOUNTER 2021-05-01 00:29 | Outpatient (CLI) | payer OTHER, SELFPAY ==
[2021-05-01] MEDS: Breeza Beverage 473 ML BTL PO ×2 (09:42→09:43)
[2021-05-01] MEDS: Omnipaque 350 MG/ML 50 ML BTL PO (09:43)
[2021-05-01 09:44] LABS: Abs Immature Grans 0.17 10^3/uL (0.0-0.06); Absolute Basophil Count 0.05 10^3/uL (0.0-0.2); Absolute Eosinophil Count 0.02 10^3/uL (0.0-0.7); Absolute Lymphocyte Count 1.34 10^3/uL (1.2-3.4); Absolute Monocyte Count 0.98 10^3/uL (0.1-0.8); Absolute Neutrophil Count 8.24 10^3/uL (1.2-6.7); Basophils % 0.5; Eosinophils % 0.2; HCT 34.5 % (40.0-50.0); HGB 11.6 g/dL (13.5-17.5); Immature Grans % 1.6; Lymphocytes % 12.4; MCH 30.2 pg (27.0-33.0); MCHC 33.6 % (32.0-36.0); MCV 89.8 fL (80-95); Monocytes % 9.1; Neutrophils % 76.2; Nucleated RBC 0 %; Platelet Count 321 10^3/uL (130-400); RBC 3.84 10^6/uL (4.36-5.78); RDW 12.4 % (11.8-14.1); RDW-SD 40.3 fL; WBC 10.81 10^3/uL (4.4-10.8)
[2021-05-01 09:57] LABS: ALT 17 U/L (16-63); AST 29 U/L (15-37); Albumin 3.3 g/dL (3.4-5.0); Alkaline Phosphatase 245 U/L (46-116); BUN 12 mg/dL (7-18); Bilirubin, Total 0.4 mg/dL (0.2-1.0); CREATININE 0.7 mg/dL (0.70-1.30); Calcium 8.9 mg/dL (8.5-10.1); Chloride 105 mmol/L (98-107); Glucose 100 mg/dL (74-106); Potassium 3.5 mmol/L (3.5-5.1); Sodium 141 mmol/L (136-145); Total Protein 7.5 g/dL (6.4-8.2)
[2021-05-01] MEDS: Omnipaque 350 MG/ML 100 ML BTL IJ (11:59)
--- NOTE | 2021-05-01 12:01 | DI.CT_ITS ---
Exam(s) CT CHEST/ABD/PEL W EXAM: CT CHEST/ABD/PEL W CLINICAL HISTORY: PROSTATE CANCER METASTATIC TO MULTIPLE SITES C61 TECHNIQUE: Imaging Protocol: Axial computed tomography images with coronal and sagittal reformatted images were created and reviewed CONTRAST MATERIAL: Intravenous: Omnipaque 350 Contrast volume:100 mL Oral: Yes COMPARISON: CT CT CHEST/ABD/PEL W from 04/11/2020 FINDINGS: CHEST: Tracheobronchial tree: Patent where visualized. Pulmonary parenchyma: No consolidation or dominant measurable mass. No architectural distortion. Ther e is scarring seen in the lung bases which is stable. Visualized thyroid gland: Unremarkable. Mediastinum and Ashley: No dominant adenopathy or fluid collection. There is a stable anterior mediasti nal lymph node. The esophagus is unremarkable. Pleura: No effusion or pneumothorax. Heart: The heart is not dilated. No coronary artery calcifications are seen. No pericardial effusion. Pulmonary arteries: The pulmonary arteries are insufficiently opacified to evaluate for peripheral pu lmonary emboli. No emboli are seen in the main pulmonary artery or right left pulmonary arteries. Aorta: Thoracic aorta non-dilated. Atherosclerosis. Lymph nodes: Please see above. Soft tissues: Unremarkable. Bones:There is diffuse sclerotic metastatic disease. ABDOMEN: Liver: Normal density. No measurable mass. Portal, Superior Mesenteric, and Splenic Veins: Unremarkable. Gallbladder and Biliary Tract: No radiodense calculus or dilation. Pancreas: Normal density, no abnormal calcifications or inflammatory process. Spleen: Normal. Adrenals: No masses seen. Kidneys: Normal size, contour and axis. No radiodense stones or obstructive uropathy. No masses seen. Abdominal Aorta: Abdominal portion non-dilated. Bowel: No obstruction or bowel wall thickening. Appendix is unremarkable. There are few diverticula i n the sigmoid colon but no evidence of acute diverticulitis. Peritoneal Cavity: There is a trace amount of free fluid in the pelvis. No free air. Lymph Nodes: Within normal limits. Bones: Diffuse sclerotic metastatic disease. Soft Tissues: Fat containing right inguinal hernia. PELVIS: Bladder: The urinary bladder is incompletely distended. There is diffuse thickening of the wall of t he urinary bladder. This may be due to underdistention but cystitis cannot be excluded. Reproductive Organs: Unremarkable as visualized. Lymph Nodes: Within normal limits. Bones: Diffuse sclerotic metastatic disease. Stable grade 1 pseudo spondylolisthesis of L4 on L5. IMPRESSION: 1. Findings of diffuse sclerotic metastatic disease. 2. Stable anterior mediastinal lymph node. RADIATION DOSE DELIVERED: 1,864.36mGy.cm Total DLP DATA REPOSITORY: All CT scans at this facility are submitted to the National Radiology Data Registry (NRDR) Dose Index Registry (DIR) with the [employer] (ACR). RADIATION OPTIMIZATION: All CT scans at this facility use at least one of these dose optimization te chniques: automated exposure control; mA and/or kV adjustment per patient size (includes targeted exa ms where dose is matched to clinical indication); or iterative reconstruction.
[2021-05-05 12:40] LABS: PSA, Ultrasensitive 256 ng/mL (<= 3.5)
[2021-05-06 11:53] LABS: Testosterone, Total <7.0 ng/dL (240-950)
== END 2021-05-01 00:49 ==
PROVIDERS: PCP Student in an Organized Health Care Education/Training Program; Visit Provider Nurse Practitioner Adult Health
DX: C61 Malignant neoplasm of prostate (principal); C79.51 Secondary malignant neoplasm of bone; R59.0 Localized enlarged lymph nodes; Z79.818 Long term (current) use of other agents affecting estrogen receptors and estrogen levels
CPT/HCPCS: 74177; 80053; 84153; 84403; 71260; 85025; J3490; Q9967

== ENCOUNTER 2021-06-02 02:39 | Outpatient (CLI) | payer OTHER, SELFPAY ==
[2021-06-02 10:05] LABS: Abs Immature Grans 0.74 10^3/uL (0.0-0.06); HCT 33.5 % (40.0-50.0); HGB 10.8 g/dL (13.5-17.5); MCH 29.8 pg (27.0-33.0); MCHC 32.2 % (32.0-36.0); MCV 92.3 fL (80-95); MPV 8.9 fL (8.0-11.0); Nucleated RBC 0 %; Platelet Count 211 10^3/uL (130-400); RBC 3.63 10^6/uL (4.36-5.78); RDW 15.5 % (11.8-14.1); RDW-SD 48.6 fL; WBC 10.74 10^3/uL (4.4-10.8)
[2021-06-02 10:25] LABS: Absolute Lymphocyte Count 2.26 10^3/uL (1.2-3.4); Absolute Monocyte Count 1.18 10^3/uL (0.1-0.8); Absolute Neutrophil Count 6.98 10^3/uL (1.2-6.7); Atypical Lymphocytes % 8; Bands % 2; Metamyelocytes % 1; Myelocytes % 2
[2021-06-02 10:26] LABS: ALT 42 U/L (16-63); AST 33 U/L (15-37); Albumin 3.7 g/dL (3.4-5.0); Alkaline Phosphatase 463 U/L (46-116); Anion Gap 8.9 mmol/L (3-11); BUN 17 mg/dL (7-18); Bilirubin, Total 0.3 mg/dL (0.2-1.0); CO2 25.1 mmol/L (21.0-32.0); CREATININE 0.6 mg/dL (0.70-1.30); Calcium 8.6 mg/dL (8.5-10.1); Chloride 106 mmol/L (98-107); Diff Comment Manual Differential; Glucose 103 mg/dL (74-106); Potassium 3.8 mmol/L (3.5-5.1); RBC Morphology Normal; Sodium 140 mmol/L (136-145); Total Protein 7.3 g/dL (6.4-8.2)
[2021-06-03 17:29] LABS: PSA, Ultrasensitive 338 ng/mL (<= 3.5)
[2021-06-05 15:08] LABS: Testosterone, Total <7.0 ng/dL (240-950)
== END 2021-06-02 02:40 | disposition home or self-care (01) ==
LOC: LBO 02:39
PROVIDERS: PCP Student in an Organized Health Care Education/Training Program; Visit Provider Internal Medicine
DX: C61 Malignant neoplasm of prostate (principal); C79.51 Secondary malignant neoplasm of bone
CPT/HCPCS: 36415; 80053; 84153; 84403; 85025

== ENCOUNTER 2021-06-23 02:17 | Outpatient (CLI) | payer OTHER, SELFPAY ==
[2021-06-23 08:03] LABS: Abs Immature Grans 0.24 10^3/uL (0.0-0.06); Absolute Basophil Count 0.09 10^3/uL (0.0-0.2); Absolute Eosinophil Count 0.02 10^3/uL (0.0-0.7); Absolute Lymphocyte Count 1.35 10^3/uL (1.2-3.4); Absolute Monocyte Count 0.68 10^3/uL (0.1-0.8); Absolute Neutrophil Count 4.83 10^3/uL (1.2-6.7); Basophils % 1.2; Eosinophils % 0.3; HCT 31.6 % (40.0-50.0); HGB 10.4 g/dL (13.5-17.5); Immature Grans % 3.3; Lymphocytes % 18.7; MCH 31.5 pg (27.0-33.0); MCHC 32.9 % (32.0-36.0); MCV 95.8 fL (80-95); Monocytes % 9.4; Neutrophils % 67.1; Nucleated RBC 0 %; Platelet Count 211 10^3/uL (130-400); RDW 19.2 % (11.8-14.1); RDW-SD 65.8 fL; WBC 7.21 10^3/uL (4.4-10.8)
[2021-06-23 08:17] LABS: ALT 172 U/L (16-63); AST 60 U/L (15-37); Albumin 3.7 g/dL (3.4-5.0); Alkaline Phosphatase 474 U/L (46-116); Anion Gap 11.2 mmol/L (3-11); BUN 15 mg/dL (7-18); Bilirubin, Total 0.3 mg/dL (0.2-1.0); CO2 22.8 mmol/L (21.0-32.0); CREATININE 0.5 mg/dL (0.70-1.30); Calcium 8.5 mg/dL (8.5-10.1); Chloride 104 mmol/L (98-107); Glucose 98 mg/dL (74-106); Potassium 4.2 mmol/L (3.5-5.1); Sodium 138 mmol/L (136-145); Total Protein 7.3 g/dL (6.4-8.2)
[2021-06-24 17:36] LABS: PSA, Ultrasensitive 249 ng/mL (<= 3.5)
[2021-06-26 16:07] LABS: Testosterone, Total <7.0 ng/dL (240-950)
== END 2021-06-23 02:18 | disposition home or self-care (01) ==
LOC: LBO 02:18
PROVIDERS: PCP Student in an Organized Health Care Education/Training Program; Visit Provider Internal Medicine
DX: C61 Malignant neoplasm of prostate (principal); C79.51 Secondary malignant neoplasm of bone
CPT/HCPCS: 36415; 80053; 84153; 84403; 85025

== ENCOUNTER 2021-06-30 01:28 | Outpatient (CLI) | payer OTHER, SELFPAY ==
[2021-06-30 10:46] LABS: Abs Immature Grans 2.03 10^3/uL (0.0-0.06); HCT 34.4 % (40.0-50.0); HGB 10.8 g/dL (13.5-17.5); MCH 30.7 pg (27.0-33.0); MCHC 31.4 % (32.0-36.0); MCV 97.7 fL (80-95); MPV 9.1 fL (8.0-11.0); Nucleated RBC 0 %; Platelet Count 240 10^3/uL (130-400); RBC 3.52 10^6/uL (4.36-5.78); RDW 19.9 % (11.8-14.1); RDW-SD 69.9 fL; WBC 22.68 10^3/uL (4.4-10.8)
[2021-06-30 10:58] LABS: ALT 115 U/L (16-63); AST 55 U/L (15-37); Albumin 4.1 g/dL (3.4-5.0); Alkaline Phosphatase 505 U/L (46-116); Anion Gap 11.5 mmol/L (3-11); BUN 19 mg/dL (7-18); Bilirubin, Total 0.2 mg/dL (0.2-1.0); CO2 22.5 mmol/L (21.0-32.0); CREATININE 0.7 mg/dL (0.70-1.30); Calcium 8.7 mg/dL (8.5-10.1); Chloride 106 mmol/L (98-107); Glucose 92 mg/dL (74-106); Potassium 4.4 mmol/L (3.5-5.1); Sodium 140 mmol/L (136-145); Total Protein 7.7 g/dL (6.4-8.2)
[2021-06-30 11:11] LABS: Absolute Lymphocyte Count 2.27 10^3/uL (1.2-3.4); Absolute Monocyte Count 0.68 10^3/uL (0.1-0.8); Absolute Neutrophil Count 19.28 10^3/uL (1.2-6.7); Atypical Lymphocytes % 2; Bands % 5; Diff Comment Manual Differential; Myelocytes % 2
[2021-06-30 11:12] LABS: Macrocytosis 1+
--- NOTE | 2021-06-30 11:49 | DI.CT_ITS ---
Exam(s) CT ABDOMEN W EXAM: CT ABDOMEN W CLINICAL HISTORY: LUQ PAIN, PROSTATE CA, ELEVATED LIVER ENZYMES, ? METS IN LIVER TECHNIQUE: Imaging Protocol: Axial computed tomography images with coronal and sagittal reformatted images were created and reviewed CONTRAST MATERIAL: Intravenous: Omnipaque 350 Contrast volume:100 mL Oral: Yes COMPARISON: CT CT CHEST/ABD/PEL W from 05/01/2021 FINDINGS: ABDOMEN: Lung Bases: Normal where visualized. Liver: Normal density. No measurable mass. Portal, Superior Mesenteric, and Splenic Veins: Unremarkable. Gallbladder and Biliary Tract: No radiodense calculus or dilation. Pancreas: Normal density, no abnormal calcifications or inflammatory process. Spleen: Normal. Adrenals: No masses seen. Kidneys: Normal size, contour and axis. No radiodense stones or obstructive uropathy. No masses seen. Abdominal Aorta: Abdominal portion non-dilated. Minimal atherosclerosis. Bowel: No obstruction or bowel wall thickening. Peritoneal Cavity: No ascites, collection or mesenteric inflammatory response. No free air. Lymph Nodes: Within normal limits. Bones: There is diffuse sclerotic metastatic disease. Soft Tissues: Unremarkable. IMPRESSION: 1. No evidence of hepatic metastatic disease. 2. Diffuse sclerotic metastatic disease. RADIATION DOSE DELIVERED: 1,065.24mGy.cm Total DLP DATA REPOSITORY: All CT scans at this facility are submitted to the National Radiology Data Registry (NRDR) Dose Index Registry (DIR) with the [employer] (ACR). RADIATION OPTIMIZATION: All CT scans at this facility use at least one of these dose optimization te chniques: automated exposure control; mA and/or kV adjustment per patient size (includes targeted exa ms where dose is matched to clinical indication); or iterative reconstruction.
[2021-06-30] MEDS: Omnipaque 350 MG/ML 50 ML BTL IJ (11:50)
[2021-06-30] MEDS: Breeza Beverage 473 ML BTL PO (11:51)
[2021-06-30] MEDS: Omnipaque 350 MG/ML 100 ML BTL IJ (11:52)
[2021-07-01 11:30] LABS: PSA, Ultrasensitive 205 ng/mL (<= 3.5)
[2021-07-04 00:15] LABS: Testosterone, Total <7.0 ng/dL (240-950)
== END 2021-06-30 01:48 ==
PROVIDERS: PCP Student in an Organized Health Care Education/Training Program; Visit Provider Internal Medicine
DX: C61 Malignant neoplasm of prostate (principal); C79.51 Secondary malignant neoplasm of bone; R74.8 Abnormal levels of other serum enzymes; Z92.21 Personal history of antineoplastic chemotherapy; R10.12 Left upper quadrant pain
CPT/HCPCS: 36415; 80053; 84153; 84403; 74160; 85025; J3490; Q9967

== ENCOUNTER 2021-07-03 01:27 | Outpatient (CLI) | payer OTHER, SELFPAY ==
--- NOTE | 2021-07-03 10:30 | DI.NM_ITS ---
Exam(s) [place] BONE SCAN WHOLE BODY GRP EXAM: [place] BONE SCAN WHOLE BODY GRP CLINICAL HISTORY: METASTATIC PROSTATE CA,C61,RESTAGING EXAM. TECHNIQUE: Injected Dose: 25 mCi Tc-99m MDP Delayed Images: 2-3 hours. COMPARISON: [facility] BONE SCAN WHOLE BODY GRP from 04/17/2021 FINDINGS: Symmetric axial uptake. Renal uptake is not well visualized. This is suspicious for super scan. The re again seen numerous areas of increased radiotracer uptake in the axial and appendicular skeleton c onsistent with metastatic disease. The findings appear similar compared to the prior examination. IMPRESSION: 1. Findings of osseous metastatic disease. DATA REPOSITORY:
== END 2021-07-03 01:47 ==
PROVIDERS: PCP Student in an Organized Health Care Education/Training Program; Visit Provider Internal Medicine
DX: C61 Malignant neoplasm of prostate (principal); C79.51 Secondary malignant neoplasm of bone
CPT/HCPCS: 78306

== ENCOUNTER 2021-07-14 03:46 | Outpatient (CLI) | payer OTHER, SELFPAY ==
[2021-07-14 08:04] LABS: Absolute Basophil Count 0.03 10^3/uL (0.0-0.2); Absolute Eosinophil Count 0.01 10^3/uL (0.0-0.7); Absolute Lymphocyte Count 0.95 10^3/uL (1.2-3.4); Absolute Monocyte Count 0.63 10^3/uL (0.1-0.8); Absolute Neutrophil Count 4.34 10^3/uL (1.2-6.7); Basophils % 0.5; Eosinophils % 0.2; HCT 32.9 % (40.0-50.0); HGB 10.9 g/dL (13.5-17.5); Immature Grans % 1.7; Lymphocytes % 15.7; MCH 32.2 pg (27.0-33.0); MCHC 33.1 % (32.0-36.0); MCV 97.1 fL (80-95); MPV 8.9 fL (8.0-11.0); Monocytes % 10.4; Neutrophils % 71.5; Nucleated RBC 0 %; Platelet Count 184 10^3/uL (130-400); RBC 3.39 10^6/uL (4.36-5.78); RDW 20.3 % (11.8-14.1); RDW-SD 71.7 fL; WBC 6.06 10^3/uL (4.4-10.8)
[2021-07-14 08:28] LABS: ALT 43 U/L (16-63); AST 28 U/L (15-37); Albumin 3.8 g/dL (3.4-5.0); Alkaline Phosphatase 349 U/L (46-116); Anion Gap 12.3 mmol/L (3-11); BUN 18 mg/dL (7-18); Bilirubin, Total 0.3 mg/dL (0.2-1.0); CO2 22.7 mmol/L (21.0-32.0); CREATININE 0.6 mg/dL (0.70-1.30); Calcium 8.6 mg/dL (8.5-10.1); Chloride 107 mmol/L (98-107); Glucose 142 mg/dL (74-106); Potassium 3.8 mmol/L (3.5-5.1); Sodium 142 mmol/L (136-145); Total Protein 7.4 g/dL (6.4-8.2)
[2021-07-14 08:39] LABS: Anisocytosis 2+; Diff Comment RBC Morph Reviewed
[2021-07-15 14:42] LABS: PSA, Ultrasensitive 208 ng/mL (<= 3.5)
[2021-07-20 17:04] LABS: Testosterone, Total <7.0 ng/dL (240-950)
== END 2021-07-14 03:47 | disposition home or self-care (01) ==
LOC: LBO 03:46
PROVIDERS: PCP Student in an Organized Health Care Education/Training Program; Visit Provider Internal Medicine
DX: C61 Malignant neoplasm of prostate (principal); C79.51 Secondary malignant neoplasm of bone
CPT/HCPCS: 36415; 80053; 84153; 84403; 85025

== ENCOUNTER 2021-07-28 04:12 | Outpatient (CLI) | payer OTHER, SELFPAY ==
[2021-07-28 12:49] LABS: HCT 32.4 % (40.0-50.0); HGB 10.7 g/dL (13.5-17.5); Nucleated RBC 0 %; Platelet Count 190 10^3/uL (130-400); RBC 3.24 10^6/uL (4.36-5.78); RDW 20.1 % (11.8-14.1); RDW-SD 72.6 fL; WBC 9.93 10^3/uL (4.4-10.8)
[2021-07-28 13:05] LABS: ALT 37 U/L (16-63); AST 38 U/L (15-37); Albumin 3.8 g/dL (3.4-5.0); Alkaline Phosphatase 273 U/L (46-116); Anion Gap 12.1 mmol/L (3-11); BUN 16 mg/dL (7-18); Bilirubin, Total 0.2 mg/dL (0.2-1.0); CO2 21.9 mmol/L (21.0-32.0); CREATININE 0.7 mg/dL (0.70-1.30); Calcium 8.1 mg/dL (8.5-10.1); Chloride 106 mmol/L (98-107); Glucose 96 mg/dL (74-106); Potassium 3.7 mmol/L (3.5-5.1); Sodium 140 mmol/L (136-145); Total Protein 7.3 g/dL (6.4-8.2)
[2021-07-28 13:09] LABS: Absolute Lymphocyte Count 1.19 10^3/uL (1.2-3.4); Absolute Neutrophil Count 8.14 10^3/uL (1.2-6.7); Bands % 3; Diff Comment Manual Differential; Metamyelocytes % 1; RBC Morphology Normal
[2021-07-30 15:26] LABS: PSA, Ultrasensitive 171 ng/mL (<= 3.5)
[2021-08-02 12:03] LABS: Testosterone, Total <7.0 ng/dL (240-950)
== END 2021-07-28 04:13 | disposition home or self-care (01) ==
LOC: LBO 04:12
PROVIDERS: PCP Student in an Organized Health Care Education/Training Program; Visit Provider Internal Medicine
DX: C61 Malignant neoplasm of prostate (principal); Z79.51 Long term (current) use of inhaled steroids
CPT/HCPCS: 36415; 80053; 84153; 84403; 85025

== ENCOUNTER 2021-08-25 04:36 | Outpatient (CLI) | payer OTHER, SELFPAY ==
[2021-08-25 10:11] LABS: Abs Immature Grans 0.05 10^3/uL (0.0-0.06); Absolute Basophil Count 0.03 10^3/uL (0.0-0.2); Absolute Eosinophil Count 0.01 10^3/uL (0.0-0.7); Absolute Lymphocyte Count 1.06 10^3/uL (1.2-3.4); Absolute Monocyte Count 0.64 10^3/uL (0.1-0.8); Absolute Neutrophil Count 3.02 10^3/uL (1.2-6.7); Basophils % 0.6; Eosinophils % 0.2; HCT 34.2 % (40.0-50.0); HGB 11.3 g/dL (13.5-17.5); MCH 33.2 pg (27.0-33.0); MCV 100.6 fL (80-95); MPV 8.6 fL (8.0-11.0); Monocytes % 13.3; Neutrophils % 62.9; Nucleated RBC 0 %; Platelet Count 218 10^3/uL (130-400); RDW 14.9 % (11.8-14.1); RDW-SD 54.8 fL; WBC 4.81 10^3/uL (4.4-10.8)
[2021-08-25 10:24] LABS: ALT 50 U/L (16-63); AST 41 U/L (15-37); Alkaline Phosphatase 197 U/L (46-116); Anion Gap 8.9 mmol/L (3-11); BUN 16 mg/dL (7-18); Bilirubin, Total 0.3 mg/dL (0.2-1.0); CO2 25.1 mmol/L (21.0-32.0); CREATININE 0.7 mg/dL (0.70-1.30); Calcium 8.9 mg/dL (8.5-10.1); Chloride 104 mmol/L (98-107); Glucose 125 mg/dL (74-106); Potassium 3.5 mmol/L (3.5-5.1); Sodium 138 mmol/L (136-145); Total Protein 7.5 g/dL (6.4-8.2)
[2021-08-26 15:20] LABS: PSA, Ultrasensitive 260 ng/mL (<= 3.5)
[2021-08-28 12:18] LABS: Testosterone, Total <7.0 ng/dL (240-950)
== END 2021-08-25 04:37 | disposition home or self-care (01) ==
PROVIDERS: PCP Student in an Organized Health Care Education/Training Program; Visit Provider Internal Medicine
DX: C61 Malignant neoplasm of prostate (principal); C79.51 Secondary malignant neoplasm of bone
CPT/HCPCS: 36415; 80053; 84153; 84403; 85025

== ENCOUNTER 2021-09-15 05:46 | Outpatient (CLI) | payer OTHER, SELFPAY ==
[2021-09-15 08:06] LABS: Absolute Basophil Count 0.03 10^3/uL (0.0-0.2); Absolute Eosinophil Count 0.02 10^3/uL (0.0-0.7); Absolute Lymphocyte Count 1.17 10^3/uL (1.2-3.4); Absolute Monocyte Count 0.71 10^3/uL (0.1-0.8); Absolute Neutrophil Count 5.14 10^3/uL (1.2-6.7); Basophils % 0.4; Eosinophils % 0.3; HCT 34.1 % (40.0-50.0); HGB 11.3 g/dL (13.5-17.5); Immature Grans % 1.4; Lymphocytes % 16.3; MCH 33.9 pg (27.0-33.0); MCHC 33.1 % (32.0-36.0); MCV 102.4 fL (80-95); MPV 8.9 fL (8.0-11.0); Monocytes % 9.9; Neutrophils % 71.7; Platelet Count 189 10^3/uL (130-400); RBC 3.33 10^6/uL (4.36-5.78); RDW 14.6 % (11.8-14.1); RDW-SD 54.7 fL; WBC 7.17 10^3/uL (4.4-10.8)
[2021-09-15 08:19] LABS: ALT 45 U/L (16-63); AST 32 U/L (15-37); Albumin 3.9 g/dL (3.4-5.0); Alkaline Phosphatase 184 U/L (46-116); Anion Gap 8.2 mmol/L (3-11); BUN 16 mg/dL (7-18); Bilirubin, Total 0.3 mg/dL (0.2-1.0); CO2 23.8 mmol/L (21.0-32.0); CREATININE 0.7 mg/dL (0.70-1.30); Calcium 9.1 mg/dL (8.5-10.1); Chloride 104 mmol/L (98-107); Glucose 100 mg/dL (74-106); Potassium 4.1 mmol/L (3.5-5.1); Sodium 136 mmol/L (136-145); Total Protein 7.4 g/dL (6.4-8.2)
[2021-09-16 19:12] LABS: PSA, Ultrasensitive 254 ng/mL (<= 3.5)
[2021-09-19 15:43] LABS: Testosterone, Total <7.0 ng/dL (240-950)
== END 2021-09-15 05:47 | disposition home or self-care (01) ==
LOC: LBO 05:46
PROVIDERS: PCP Student in an Organized Health Care Education/Training Program; Visit Provider Internal Medicine
DX: C61 Malignant neoplasm of prostate (principal); C79.51 Secondary malignant neoplasm of bone
CPT/HCPCS: 36415; 80053; 84153; 84403; 85025

== ENCOUNTER 2021-10-06 02:26 | Outpatient (CLI) | payer OTHER, SELFPAY ==
[2021-10-06 08:07] LABS: Abs Immature Grans 0.08 10^3/uL (0.0-0.06); Absolute Basophil Count 0.03 10^3/uL (0.0-0.2); Absolute Eosinophil Count 0.02 10^3/uL (0.0-0.7); Absolute Lymphocyte Count 1.01 10^3/uL (1.2-3.4); Absolute Monocyte Count 0.82 10^3/uL (0.1-0.8); Basophils % 0.3; Eosinophils % 0.2; HCT 33.3 % (40.0-50.0); HGB 11.2 g/dL (13.5-17.5); Immature Grans % 0.9; Lymphocytes % 11.3; MCHC 33.6 % (32.0-36.0); MCV 101 fL (80-95); MPV 8.8 fL (8.0-11.0); Monocytes % 9.2; Neutrophils % 78.1; Platelet Count 296 10^3/uL (130-400); RBC 3.29 10^6/uL (4.36-5.78); RDW 13.4 % (11.8-14.1); RDW-SD 49.8 fL; WBC 8.96 10^3/uL (4.4-10.8)
[2021-10-06 08:28] LABS: ALT 38 U/L (16-63); AST 33 U/L (15-37); Albumin 3.5 g/dL (3.4-5.0); Alkaline Phosphatase 112 U/L (46-116); Anion Gap 11.5 mmol/L (3-11); BUN 17 mg/dL (7-18); Bilirubin, Total 0.4 mg/dL (0.2-1.0); CO2 24.5 mmol/L (21.0-32.0); CREATININE 0.8 mg/dL (0.70-1.30); Calcium 8.8 mg/dL (8.5-10.1); Chloride 104 mmol/L (98-107); Glucose 129 mg/dL (74-106); Potassium 3.6 mmol/L (3.5-5.1); Sodium 140 mmol/L (136-145); Total Protein 7.5 g/dL (6.4-8.2)
[2021-10-08 17:40] LABS: PSA, Ultrasensitive 387 ng/mL (<= 3.5)
[2021-10-10 16:32] LABS: Testosterone, Total <7.0 ng/dL (240-950)
== END 2021-10-06 02:27 | disposition home or self-care (01) ==
LOC: LBO 02:26
PROVIDERS: PCP Student in an Organized Health Care Education/Training Program; Visit Provider Internal Medicine
DX: C61 Malignant neoplasm of prostate (principal); C79.51 Secondary malignant neoplasm of bone
CPT/HCPCS: 36415; 80053; 84153; 84403; 85025

== ENCOUNTER → 2021-10-21 03:19 | Outpatient (CLI) | payer OTHER, SELFPAY ==
--- NOTE | 2021-10-21 10:30 | DI.NM_ITS ---
Exam(s) [place] BONE SCAN WHOLE BODY GRP EXAM: [place] BONE SCAN WHOLE BODY GRP CLINICAL HISTORY: PROSTATE CA WITH METS TO MULTIPLE SITES, C61, ADT, [id number]. COMPARISON: [facility] BONE SCAN WHOLE BODY GRP from 07/03/2021 TECHNIQUE: Whole body bone scan was performed with intravenous infusion of 25.5 millicuries of techn etium 99 labeled methylene diphosphonate. Examination is compared with previous examination of . Note is again made of poorly visualized renal uptake, suspicious for super scan. Multiple areas of increased uptake are seen in the bones, similar to findings on prior examination. FINDINGS: Findings are consistent metastatic disease, poor visualization of renal excretion is suggestive of ?? ?super scan??? appearance. Little if any interval change in appearance comparison with prior examina tion of July 03. IMPRESSION: DATA REPOSITORY:
== END ==
PROVIDERS: PCP Student in an Organized Health Care Education/Training Program; Visit Provider Nurse Practitioner Adult Health
DX: C61 Malignant neoplasm of prostate (principal); Z79.818 Long term (current) use of other agents affecting estrogen receptors and estrogen levels; C79.51 Secondary malignant neoplasm of bone
CPT/HCPCS: 78306

== ENCOUNTER 2021-10-27 15:52 | Outpatient (CLI) | payer OTHER, SELFPAY ==
[2021-10-27 08:06] LABS: Abs Immature Grans 0.25 10^3/uL (0.0-0.06); Absolute Basophil Count 0.03 10^3/uL (0.0-0.2); Absolute Eosinophil Count 0.01 10^3/uL (0.0-0.7); Absolute Lymphocyte Count 1.05 10^3/uL (1.2-3.4); Absolute Monocyte Count 0.47 10^3/uL (0.1-0.8); Absolute Neutrophil Count 4.61 10^3/uL (1.2-6.7); Basophils % 0.5; Eosinophils % 0.2; HCT 30.8 % (40.0-50.0); HGB 10.3 g/dL (13.5-17.5); Immature Grans % 3.9; Lymphocytes % 16.4; MCH 32.9 pg (27.0-33.0); MCHC 33.4 % (32.0-36.0); MCV 98 fL (80-95); MPV 8.4 fL (8.0-11.0); Monocytes % 7.3; Neutrophils % 71.7; Platelet Count 131 10^3/uL (130-400); RBC 3.13 10^6/uL (4.36-5.78); RDW 14.7 % (11.8-14.1); RDW-SD 52.8 fL; WBC 6.42 10^3/uL (4.4-10.8)
[2021-10-27 08:21] LABS: ALT 37 U/L (16-63); AST 38 U/L (15-37); Albumin 3.5 g/dL (3.4-5.0); Alkaline Phosphatase 121 U/L (46-116); Anion Gap 12.1 mmol/L (3-11); BUN 18 mg/dL (7-18); Bilirubin, Total 0.4 mg/dL (0.2-1.0); CO2 23.9 mmol/L (21.0-32.0); CREATININE 0.8 mg/dL (0.70-1.30); Calcium 8.7 mg/dL (8.5-10.1); Chloride 104 mmol/L (98-107); Glucose 128 mg/dL (74-106); Potassium 3.6 mmol/L (3.5-5.1); Sodium 140 mmol/L (136-145); Total Protein 7.6 g/dL (6.4-8.2)
[2021-10-28 19:11] LABS: PSA, Ultrasensitive 553 ng/mL (<= 3.5)
[2021-11-02 10:26] LABS: Testosterone, Total <7.0 ng/dL (240-950)
== END 2021-10-27 15:53 | disposition home or self-care (01) ==
LOC: LBO 15:54
PROVIDERS: PCP Student in an Organized Health Care Education/Training Program; Visit Provider Internal Medicine
DX: C61 Malignant neoplasm of prostate (principal); C79.51 Secondary malignant neoplasm of bone
CPT/HCPCS: 36415; 80053; 84153; 84403; 85025

== ENCOUNTER 2021-11-17 02:34 | Outpatient (CLI) | payer OTHER, SELFPAY ==
[2021-11-17 08:06] LABS: HCT 27.2 % (40.0-50.0); HGB 9.1 g/dL (13.5-17.5); MCH 33.8 pg (27.0-33.0); MCHC 33.5 % (32.0-36.0); MCV 101 fL (80-95); MPV 8.7 fL (8.0-11.0); Platelet Count 162 10^3/uL (130-400); RBC 2.69 10^6/uL (4.36-5.78); RDW 17.1 % (11.8-14.1); RDW-SD 62.1 fL; WBC 8.22 10^3/uL (4.4-10.8)
[2021-11-17 08:21] LABS: ALT 39 U/L (16-63); AST 53 U/L (15-37); Absolute Lymphocyte Count 0.58 10^3/uL (1.2-3.4); Absolute Neutrophil Count 7.15 10^3/uL (1.2-6.7); Albumin 3.4 g/dL (3.4-5.0); Alkaline Phosphatase 120 U/L (46-116); Anion Gap 10.7 mmol/L (3-11); BUN 17 mg/dL (7-18); Bands % 7; Bilirubin, Total 0.4 mg/dL (0.2-1.0); CO2 24.3 mmol/L (21.0-32.0); CREATININE 0.8 mg/dL (0.70-1.30); Calcium 8.5 mg/dL (8.5-10.1); Chloride 102 mmol/L (98-107); Glucose 146 mg/dL (74-106); Potassium 3.7 mmol/L (3.5-5.1); Sodium 137 mmol/L (136-145); Total Protein 7.4 g/dL (6.4-8.2)
[2021-11-17 08:22] LABS: Absolute Monocyte Count 0.25 10^3/uL (0.1-0.8); Diff Comment Manual Differential; Metamyelocytes % 3; RBC Morphology Normal
[2021-11-18 18:13] LABS: PSA, Ultrasensitive 682 ng/mL (<= 3.5)
[2021-11-23 15:41] LABS: Testosterone, Total 7.8 ng/dL (240-950)
== END 2021-11-17 02:35 | disposition home or self-care (01) ==
PROVIDERS: PCP Student in an Organized Health Care Education/Training Program; Visit Provider Internal Medicine
DX: C61 Malignant neoplasm of prostate (principal); C79.51 Secondary malignant neoplasm of bone
CPT/HCPCS: 36415; 80053; 84153; 84403; 85025

== ENCOUNTER 2021-12-15 04:08 | Outpatient (CLI) | payer OTHER, SELFPAY ==
[2021-12-15 08:44] LABS: Abs Immature Grans 0.54 10^3/uL (0.0-0.06); HCT 23.6 % (40.0-50.0); HGB 7.7 g/dL (13.5-17.5); MCH 31.8 pg (27.0-33.0); MCHC 32.6 % (32.0-36.0); MCV 98 fL (80-95); MPV 8.6 fL (8.0-11.0); Platelet Count 315 10^3/uL (130-400); RBC 2.42 10^6/uL (4.36-5.78); RDW 17.2 % (11.8-14.1); RDW-SD 61.8 fL; WBC 8.25 10^3/uL (4.4-10.8)
[2021-12-15 09:00] LABS: ALT 28 U/L (16-63); AST 73 U/L (15-37); Absolute Basophil Count 0.17 10^3/uL (0.0-0.2); Absolute Lymphocyte Count 1.07 10^3/uL (1.2-3.4); Absolute Monocyte Count 0.74 10^3/uL (0.1-0.8); Absolute Neutrophil Count 6.11 10^3/uL (1.2-6.7); Albumin 2.6 g/dL (3.4-5.0); Alkaline Phosphatase 117 U/L (46-116); Anion Gap 10.4 mmol/L (3-11); BUN 20 mg/dL (7-18); Bands % 6; Bilirubin, Total 0.4 mg/dL (0.2-1.0); CO2 25.6 mmol/L (21.0-32.0); CREATININE 0.9 mg/dL (0.70-1.30); Calcium 9.4 mg/dL (8.5-10.1); Chloride 98 mmol/L (98-107); Glucose 151 mg/dL (74-106); Metamyelocytes % 2; Potassium 3.6 mmol/L (3.5-5.1); Sodium 134 mmol/L (136-145); Total Protein 8.1 g/dL (6.4-8.2)
[2021-12-15 09:01] LABS: Diff Comment Manual Differential
[2021-12-15 09:02] LABS: Hypochromasia 2+
[2021-12-16 12:49] LABS: PSA, Ultrasensitive 626 ng/mL (<= 3.5)
[2021-12-20 12:22] LABS: Testosterone, Total <7.0 ng/dL (240-950)
== END 2021-12-15 04:09 | disposition home or self-care (01) ==
LOC: LBO 04:08
PROVIDERS: PCP Student in an Organized Health Care Education/Training Program; Visit Provider Internal Medicine
DX: C61 Malignant neoplasm of prostate (principal); C79.51 Secondary malignant neoplasm of bone
CPT/HCPCS: 36415; 80053; 84153; 84403; 86850; 86900; 86901; 86920; 85025

== ENCOUNTER 2021-12-15 11:56 | Outpatient (CLI) | payer OTHER, SELFPAY | END 2021-12-15 11:57 | disposition home or self-care (01) | LOC: LBO 11:57 | PROVIDERS: PCP Student in an Organized Health Care Education/Training Program; Visit Provider Internal Medicine ==

== ENCOUNTER 2021-12-16 02:33 | Outpatient (RCR) | payer OTHER, SELFPAY ==
[2021-12-16] MEDS: Normal Saline Flush 10 ML SYR IVP (12:30)
[2021-12-16 12:35] VITALS: BP 147/74; PULSE 116; RESP 18; TEMP 36.6; O2SAT 95
[2021-12-16 12:50] VITALS: BP 134/73; PULSE 107; RESP 18; TEMP 36.6; O2SAT 96
[2021-12-16 13:05] VITALS: BP 147/76; PULSE 107; RESP 18; TEMP 36.5; O2SAT 97
[2021-12-16 13:38] VITALS: BP 127/72; PULSE 105; RESP 18; TEMP 36.9; O2SAT 95
[2021-12-16 14:30] VITALS: BP 123/61; PULSE 91; RESP 18; TEMP 36.8; O2SAT 96
== END 2021-12-20 23:59 | disposition home or self-care (01) ==
LOC: INF 02:33
PROVIDERS: PCP Student in an Organized Health Care Education/Training Program; Visit Provider Internal Medicine
DX: C61 Malignant neoplasm of prostate (principal)
CPT/HCPCS: 36430; 86850; 86900; 86901; 86920; P9016

== ENCOUNTER 2021-12-18 10:27 | Outpatient (CLI) | payer OTHER, SELFPAY ==
[2021-12-18 10:45] LABS: Abs Immature Grans 0.47 10^3/uL (0.0-0.06); Absolute Basophil Count 0.03 10^3/uL (0.0-0.2); Absolute Eosinophil Count 0.01 10^3/uL (0.0-0.7); Absolute Monocyte Count 0.75 10^3/uL (0.1-0.8); Absolute Neutrophil Count 5.36 10^3/uL (1.2-6.7); Basophils % 0.4; Eosinophils % 0.1; HCT 22.4 % (40.0-50.0); HGB 7.3 g/dL (13.5-17.5); Immature Grans % 6.2; Lymphocytes % 13.1; MCH 31.2 pg (27.0-33.0); MCHC 32.6 % (32.0-36.0); MCV 96 fL (80-95); MPV 8.1 fL (8.0-11.0); Monocytes % 9.8; Neutrophils % 70.4; Nucleated RBC 0.5 % (0.0-0.3); Platelet Count 231 10^3/uL (130-400); RBC 2.34 10^6/uL (4.36-5.78); RDW-SD 62.3 fL; WBC 7.62 10^3/uL (4.4-10.8)
[2021-12-18 10:57] LABS: Diff Comment Agrees w/ Instrument; Polychromasia Present
[2021-12-18 11:01] LABS: ALT 21 U/L (16-63); AST 64 U/L (15-37); Albumin 2.4 g/dL (3.4-5.0); Alkaline Phosphatase 110 U/L (46-116); Anion Gap 11.5 mmol/L (3-11); BUN 11 mg/dL (7-18); Bilirubin, Total 0.6 mg/dL (0.2-1.0); CO2 25.5 mmol/L (21.0-32.0); CREATININE 0.9 mg/dL (0.70-1.30); Calcium 8.3 mg/dL (8.5-10.1); Chloride 92 mmol/L (98-107); Glucose 137 mg/dL (74-106); Potassium 4.1 mmol/L (3.5-5.1); Sodium 129 mmol/L (136-145); Total Protein 7.4 g/dL (6.4-8.2)
== END 2021-12-18 10:28 | disposition home or self-care (01) ==
LOC: LBO 10:27
PROVIDERS: PCP Student in an Organized Health Care Education/Training Program; Visit Provider Internal Medicine
DX: C61 Malignant neoplasm of prostate (principal); C79.51 Secondary malignant neoplasm of bone
CPT/HCPCS: 36415; 80053; 85025

== ENCOUNTER 2022-01-07 04:09 | Outpatient (CLI) | payer OTHER, SELFPAY ==
[2022-01-07 14:10] LABS: Absolute Lymphocyte Count 0.99 10^3/uL (1.2-3.4); HCT 25.3 % (40.0-50.0); MCH 30.7 pg (27.0-33.0); MCHC 31.6 % (32.0-36.0); MCV 97 fL (80-95); Platelet Count 163 10^3/uL (130-400); RBC 2.61 10^6/uL (4.36-5.78); RDW 17.9 % (11.8-14.1)
[2022-01-07 14:24] LABS: Absolute Basophil Count 0.09 10^3/uL (0.0-0.2); Absolute Eosinophil Count 0.05 10^3/uL (0.0-0.7); Absolute Monocyte Count 0.18 10^3/uL (0.1-0.8); Absolute Neutrophil Count 3.15 10^3/uL (1.2-6.7); Bands % 5; Diff Comment Manual Differential; Metamyelocytes % 1; RBC Morphology Normal
== END 2022-01-07 04:10 | disposition home or self-care (01) ==
LOC: LBO 04:09
PROVIDERS: PCP Student in an Organized Health Care Education/Training Program; Visit Provider Internal Medicine
DX: C61 Malignant neoplasm of prostate (principal); C79.51 Secondary malignant neoplasm of bone; D63.0 Anemia in neoplastic disease
CPT/HCPCS: 36415; 85025

== ENCOUNTER 2022-01-19 02:44 | Outpatient (RCR) | payer OTHER, SELFPAY ==
[2021-12-25 09:28] LABS: Absolute Eosinophil Count 0.05 10^3/uL (0.0-0.7); HCT 24.1 % (40.0-50.0); HGB 7.7 g/dL (13.5-17.5); MCH 31.6 pg (27.0-33.0); MCV 99 fL (80-95); MPV 8.8 fL (8.0-11.0); RBC 2.44 10^6/uL (4.36-5.78); RDW 18.2 % (11.8-14.1); RDW-SD 64.1 fL
[2021-12-25 09:46] LABS: Platelet Count 194 10^3/uL (130-400)
[2021-12-25 09:47] LABS: Absolute Basophil Count 0.05 10^3/uL (0.0-0.2); Absolute Lymphocyte Count 1.59 10^3/uL (1.2-3.4); Absolute Monocyte Count 0.48 10^3/uL (0.1-0.8); Absolute Neutrophil Count 2.97 10^3/uL (1.2-6.7); Bands % 3; Diff Comment Manual Differential; Hypochromasia 2+; Metamyelocytes % 3
[2021-12-25 09:48] LABS: ALT 27 U/L (16-63); AST 86 U/L (15-37); Albumin 2.7 g/dL (3.4-5.0); Alkaline Phosphatase 132 U/L (46-116); Anion Gap 12.1 mmol/L (3-11); BUN 18 mg/dL (7-18); Bilirubin, Total 0.3 mg/dL (0.2-1.0); CO2 22.9 mmol/L (21.0-32.0); CREATININE 0.8 mg/dL (0.70-1.30); Calcium 8.9 mg/dL (8.5-10.1); Chloride 101 mmol/L (98-107); Glucose 115 mg/dL (74-106); Sodium 136 mmol/L (136-145); Total Protein 7.8 g/dL (6.4-8.2)
[2021-12-25] MEDS: Normal Saline Flush 10 ML SYR IVP (10:21)
[2021-12-25] MEDS: Acetaminophen 325 MG TAB 650 MG PO (10:40)
[2021-12-25] MEDS: diphenhydrAMINE 25 MG CAP PO (10:40)
[2021-12-25 10:54] VITALS: BP 139/84; PULSE 95; RESP 18; TEMP 36.3; O2SAT 99
[2021-12-25 11:09] VITALS: BP 139/83; PULSE 95; RESP 18; TEMP 36.4; O2SAT 98
[2021-12-25 11:39] VITALS: BP 135/70; PULSE 96; RESP 20; TEMP 36.3; O2SAT 98
[2021-12-25 12:09] VITALS: BP 126/85; PULSE 96; RESP 16; TEMP 36.7; O2SAT 100
[2021-12-25 12:39] VITALS: BP 142/87; PULSE 90; RESP 17; TEMP 36.4; O2SAT 99
[2021-12-25 12:50] LABS: Ferritin > 2000 ng/mL (26-388)
[2021-12-25 13:33] VITALS: BP 137/87; PULSE 93; RESP 17; TEMP 36.3; O2SAT 99
[2021-12-26 13:57] LABS: PSA, Ultrasensitive 661 ng/mL (<= 3.5)
[2021-12-31 08:40] LABS: Testosterone, Total <7.0 ng/dL (240-950)
[2022-01-12 09:26] LABS: HCT 23.4 % (40.0-50.0); HGB 7.5 g/dL (13.5-17.5); MCH 30.9 pg (27.0-33.0); MCHC 32.1 % (32.0-36.0); MCV 96 fL (80-95); MPV 8.8 fL (8.0-11.0); Platelet Count 175 10^3/uL (130-400); RBC 2.43 10^6/uL (4.36-5.78); RDW 18.6 % (11.8-14.1); RDW-SD 65.1 fL; WBC 4.34 10^3/uL (4.4-10.8)
[2022-01-12 09:41] LABS: ALT 19 U/L (16-63); AST 68 U/L (15-37); Albumin 2.7 g/dL (3.4-5.0); Alkaline Phosphatase 136 U/L (46-116); Anion Gap 10.2 mmol/L (3-11); BUN 11 mg/dL (7-18); Bilirubin, Total 0.4 mg/dL (0.2-1.0); CO2 25.8 mmol/L (21.0-32.0); CREATININE 0.7 mg/dL (0.70-1.30); Calcium 8.4 mg/dL (8.5-10.1); Chloride 100 mmol/L (98-107); Glucose 151 mg/dL (74-106); Potassium 3.7 mmol/L (3.5-5.1); Sodium 136 mmol/L (136-145); Total Protein 7.4 g/dL (6.4-8.2)
[2022-01-12 09:42] LABS: Absolute Lymphocyte Count 0.43 10^3/uL (1.2-3.4); Absolute Monocyte Count 0.26 10^3/uL (0.1-0.8); Absolute Neutrophil Count 3.56 10^3/uL (1.2-6.7); Bands % 4; Diff Comment Manual Differential; Metamyelocytes % 2; RBC Morphology Normal
[2022-01-13] VITALS (10 sets, daily range): BP systolic 118–134; BP diastolic 69–79; PULSE 80–101; RESP 16; TEMP 36.2–36.6; O2SAT 98–99
[2022-01-13] MEDS: Acetaminophen 325 MG TAB (08:10)
[2022-01-13] MEDS: diphenhydrAMINE 25 MG CAP (08:10)
[2022-01-13] MEDS: Normal Saline Flush 10 ML SYR IVP (08:19)
[2022-01-14 12:45] LABS: PSA, Ultrasensitive 444 ng/mL (<=3.5)
[2022-01-19 08:21] LABS: Abs Immature Grans 0.18 10^3/uL (0.0-0.06); HCT 28.3 % (40.0-50.0); MCH 29.5 pg (27.0-33.0); MCHC 31.8 % (32.0-36.0); MCV 93 fL (80-95); MPV 8.4 fL (8.0-11.0); Platelet Count 157 10^3/uL (130-400); RBC 3.05 10^6/uL (4.36-5.78); RDW 18.6 % (11.8-14.1); RDW-SD 62.1 fL; WBC 3.31 10^3/uL (4.4-10.8)
[2022-01-19 08:55] LABS: Anisocytosis 1+; Diff Comment Manual Differential; Polychromasia Present
[2022-01-19 08:56] LABS: Absolute Lymphocyte Count 0.33 10^3/uL (1.2-3.4); Absolute Monocyte Count 0.56 10^3/uL (0.1-0.8); Absolute Neutrophil Count 2.18 10^3/uL (1.2-6.7); Bands % 3; Metamyelocytes % 4
[2022-01-19 15:15] LABS: Testosterone, Total 7.2 ng/dL (240-950)
== END 2022-01-20 23:59 | disposition home or self-care (01) ==
LOC: INF 02:44
PROVIDERS: PCP Student in an Organized Health Care Education/Training Program; Visit Provider Internal Medicine
DX: C61 Malignant neoplasm of prostate (principal)
CPT/HCPCS: 36415; 36430; 80053; 84153; 84403; 86850; 86900; 86901; 86920; 86945; 82728; 85025; P9016

== ENCOUNTER 2022-01-21 07:38 | Emergency (ER) | payer OTHER, SELFPAY ==
[2022-01-21 07:42] VITALS: BP 141/78; PULSE 101; RESP 16; TEMP 36.5; O2SAT 99
--- NOTE | 2022-01-21 08:05 | W.ED.GENAD ---
Discharge Plan Disposition Patient Disposition: HOME Condition: Stable Discharge Details Clinical Impression: Colitis, Rectal bleeding Primary Care Provider: Renita Bowers ED Provider: Sunshine Holder Home Meds and New Rx's Prescriptions: Continued calcium glucarate 500 mg capsule 3 tab-cap PO DAILY Xtandi 40 mg tablet 160 mg PO DAILY oxycodone [OxyContin] 30 mg tablet,oral only,ext.rel.12 hr 30 mg PO Q12H senna 8.6 mg capsule 8.6 mg PO BID PRN (Reason: constipation) Qty: 60 0RF Rx Instructions: palliative care patient lansoprazole [Prevacid] 30 mg capsule,delayed release(DR/EC) 30 mg PO DAILY Rx Instructions: 12/22/21 oncology jwo cholecalciferol (vitamin D3) 10 mcg (400 unit) tablet 20 mcg PO DAILY Rx Instructions: 12/22/21 per [facility] 800 iu daily with calcium prochlorperazine maleate [Compazine] 10 mg tablet 10 mg PO Q6H PRN oxycodone 5 mg tablet 5 - 10 mg PO .q3-h MDD 80mg PRN (Reason: pain) Qty: 168 0RF Discharge Instructions Instructions: Rectal Bleeding (ED) Additional Instructions: Your lab work today is reassuring. Your hemoglobin is 9.3. Your CT scan today noted evidence of colitis which is an inflammation of your colon. This can be seen as a reaction to radiation, medication or a viral illness. Drink plenty of fluids and get plenty of rest. Follow a soft diet for the next 48 hours. Avoid straining with bowel movements and constipation. Take stool softeners as needed. Follow-up with your primary care doctor in 1 week. Return to the emergency department with any worsening or new concerning symptoms such as fever, persistent vomiting, worsening pain or any other concerns. Discharge Data Discharge Date/Time-TO BE ENTERED AT DEPARTURE: 01/21/22 15:15 Discharge Physician: Sunshine Holder Medical Decision Making 4750 -- 52-year-old male with a history of prostate cancer with mets to lymph nodes and bone presents for bright red blood in toilet with bowel movement this morning. Also admits to lower abdominal cramping and nausea. Patient appears comfortable and nontoxic. His vitals are within normal limits. His abdomen is soft and tender in the lower quadrants. There is no rigidity or guarding. Rectal exam inspection normal with brown stool which is strongly guaiac positive COVID differential diagnosis includes colitis, diverticulitis, acute blood loss anemia. He states he has not received radiation rectally making radiation proctitis less likely. Will refer for screening labs and CT abdomen and pelvis 0930 -- Labs reviewed. Hemoglobin 9.3 which is improved from 10 to result of 9. Bands 4. Initial coagulation studies elevated but this is secondary to blood draw and repeat levels are normal. Urinalysis negative. CT abdomen and pelvis notes possible colitis but limited due to lack of oral contrast. Case discussed with Dr. Hines who is requesting repeat scan with oral contrast. 1220 -- Case discussed with radiologist who notes that the contrast did not travel to the colon and study is limited. Recommends additional contrast and rescan in 40 minutes. Pt is agreeable. 1500 -- Case discussed with Dr. Hines who reviewed imaging and notes a nonspecific colitis pattern. As patient has no significant pain or fever, no recommendation for antibiotics at this time. Recommend increasing fluids, soft diet for 48 hours and avoid constipation and straining. Usual and customary return precautions given prior to discharge. Medical Records Medical records reviewed: Yes I reviewed the patient's medical records. Imaging Data Radiologic Study: Radiologist's impression: #1 CT ABDOMEN ? PELVIS W CLINICAL HISTORY: ? lower abd cramping, r/o colitis, diverticulitis. ? TECHNIQUE:? Imaging Protocol: Axial computed tomography images with coronal and sagittal reformatted images were created and reviewed CONTRAST MATERIAL:? Intravenous: Omnipaque 100cc Oral: None COMPARISON:? CT CT CHEST/ABD/PEL W from 01/14/[address] RENAL COLIC WO from 08/24/[address] CHEST W from 11/09/[address] ABDOMEN ? PELVIS WO from 10/01/2021 FINDINGS: VISUALIZED LUNG BASES: Small subpleural nodular infiltrate in the anterior basal segment of the left lower lobe is again noted.? Basically unchanged from CT scan of 11/09/2019 but was not evident on CT scan of 01/14/2019.? No pleural effusions. ABDOMEN: There is no ascites. LIVER: There are no focal hepatic lesions evident .? GALLBLADDER/BILIARY: No obvious gallbladder pathology.? CBD is not dilated. PANCREAS: No evidence of pancreatic mass nor dilatation of the pancreatic duct.? SPLEEN: Spleen is not enlarged.? No obvious intrasplenic lesions.? Splenic and portal veins are patent. ADRENALS: There are no significant adrenal masses. KIDNEYS:No cysts evident.? No solid renal masses.? No calculi nor hydronephrosis.. ABDOMINAL AORTA: Abdominal aorta is not enlarged. LYMPH NODES:There is no retroperitoneal nor paraaortic adenopathy. ABDOMINAL WALL: Fat containing right inguinal hernia.? No bowel loops therein.? No bowel obstruction. GI: There is no evidence of bowel obstruction, free air, nor abscess. PELVIS:? GI: Appendix is not seen but there is no evidence of appendicitis.No evidence of sigmoid diverticulitis.The left side of the colon is collapsed.? Wall is difficult to assess accurately.? However, there appears to be a probable colitis pattern in the sigmoid. LYMPH NODES: There is no intrapelvic nor inguinal adenopathy. REPRODUCTIVE: Prostate gland is small.? Seminal vesicles unremarkable. URINARY BLADDER: Not distended.? Uniformly thickened wall.? No diverticuli. OSSEOUS: Diffuse blastic skeletal metastases are again noted. IMPRESSION: 1. Diffuse blastic skeletal metastases again noted.? Prostate gland is not enlarged.? No intrapelvic adenopathy. 2. No evidence of metastatic disease in the abdomen and pelvis.? No ascites. 3. Although difficult to assess without intraluminal oral contrast, the appearance of the rectum and sigmoid probably reflects colitis pattern.? Appearance is significantly different from the CT scan of 10/01/2021.? There are few sigmoid diverticuli but no evidence of acute diverticulitis. #2 CT ABDOMEN ? PELVIS WO CLINICAL HISTORY: ? lower abd pain, rectal bleeding, r/o colitis. ? TECHNIQUE:? Imaging Protocol: Axial computed tomography images with coronal and sagittal reformatted images were created and reviewed CONTRAST MATERIAL:? Intravenous: none Oral: None COMPARISON:? CT CT ABDOMEN ? PELVIS W from 01/21/2022 FINDINGS: See combined report.? This patient had repeat study after oral contrast within a few hours so the contrast could region sigmoid Suspicious for colitis pattern in the sigmoid.? Also again noted are the previously documented extensive blastic metastases in the skeleton. #3 CT ABDOMEN ? PELVIS WO CLINICAL HISTORY: ? lower abd pain, rectal bleeding, r/o colitis. ? TECHNIQUE:? Imaging Protocol: Axial computed tomography images with coronal and sagittal reformatted images were created and reviewed CONTRAST MATERIAL:? Intravenous: none Oral: Yes COMPARISON:? CT CT ABDOMEN ? PELVIS WO from 01/21/2022 FINDINGS: VISUALIZED LUNG BASES: No nodules nor pleural effusions evident.? ABDOMEN: There is no ascites. LIVER: There are no obvious focal hepatic lesions evident of this noninfused study.? GALLBLADDER/BILIARY: No obvious gallbladder pathology.? CBD is not dilated. PANCREAS: No evidence of pancreatic mass nor dilatation of the pancreatic duct.? SPLEEN: Spleen is not enlarged.? No obvious intrasplenic lesions.? ADRENALS: There are no significant adrenal masses. KIDNEYS:No cysts evident. No solid renal masses. No calculi nor hydronephrosis. . ABDOMINAL AORTA: Abdominal aorta is not enlarged. LYMPH NODES: There is no retroperitoneal nor paraaortic adenopathy. ABDOMINAL WALL: No evidence of significant anterior abdominal wall nor inguinal hernia. GI: There is no evidence of bowel obstruction, free air, nor abscess. PELVIS:? LYMPH NODES: There is no intrapelvic nor inguinal adenopathy. GI: No evidence of appendicitis.There are few diverticuli in the sigmoid but no evidence of sigmoid diverticulitis.Subtle suggestion of possible colitis pattern in the sigmoid. URINARY BLADDER: No calculi nor obvious masses evident REPRODUCTIVE: Prostate not enlarged.? No obturator adenopathy. OSSEOUS: Extensive blastic metastases again noted throughout the entire visualized skeleton within the field of view of this study, previously documented.? No acute fractures evident. IMPRESSION: 1. There appears to be a subtle colitis pattern in the sigmoid. 2. Sigmoid diverticuli but no evidence of acute diverticulitis. 3. Extensive bony blastic metastases again noted. Lab Data Lab results reviewed: Yes I reviewed the patient's lab results. Labs: Laboratory Tests Range/Units 01/21/22 01/21/22 01/21/22 08:17 08:17 08:27 WBC (4.4-10.8) 10^3/uL 4.00 L RBC (4.36-5.78) 10^6/uL 3.08 L Hgb (13.5-17.5) g/dL 9.3 L Hct (40.0-50.0) % 28.7 L MCV (80-95) fL 93 MCH (27.0-33.0) pg 30.2 MCHC (32.0-36.0) % 32.4 RDW (11.8-14.1) % 18.5 H Plt Count (130-400) 10^3/uL 162 MPV (8.0-11.0) fL 9.0 Immature Gran % See Differential Neutrophils % 70.0 Band Neutrophils % 4 Lymphocytes % 8.0 Monocytes % 11.0 Eosinophils % 4.0 Basophils % 1.0 Metamyelocytes % 2 Nucleated RBC % (0.0-0.3) % 0.0 Absolute Neutrophils (1.2-6.7) 10^3/uL 2.96 Absolute Lymphocytes (1.2-3.4) 10^3/uL 0.32 L Absolute Monocytes (0.1-0.8) 10^3/uL 0.44 Absolute Eosinophils (0.0-0.7) 10^3/uL 0.16 Absolute Basophils (0.0-0.2) 10^3/uL 0.04 RBC Morphology Normal PT (9.3-11.0) sec INR (0.9-1.1) APTT (21.0-27.5) sec Sodium (136-145) mmol/L 138 Potassium (3.5-5.1) mmol/L 3.8 Chloride (98-107) mmol/L 103 Carbon Dioxide (21.0-32.0) mmol/L 24.2 Anion Gap (3-11) mmol/L 10.8 BUN (7-18) mg/dL 10 Creatinine (0.70-1.30) mg/dL 0.7 Est GFR (CKD-EPI 2020) (mL/min/1.73m2) 110.18 Glucose (74-106) mg/dL 109 H Calcium (8.5-10.1) mg/dL 8.7 Total Bilirubin (0.2-1.0) mg/dL 0.4 AST (15-37) U/L 55 H ALT (16-63) U/L 22 Alkaline Phosphatase (46-116) U/L 121 H Total Protein (6.4-8.2) g/dL 7.3 Albumin (3.4-5.0) g/dL 2.9 L Lipase (73-393) U/L 84 Urine Color (Yellow) Yellow Urine Clarity (Clear) Clear Urine pH (5-8) 5.[address] (1.005-1.025) 1.025 Urine Protein (Negative) mg/dL Negative Urine Ketones (Negative) mg/dL Negative Urine Blood (Negative) Negative Urine Nitrite (Negative) Negative Urine Bilirubin (Negative) Negative Urine Urobilinogen (Up TO 0.2) EU/dL 0.2 Ur Leukocyte Esterase (Negative) Negative Urine Glucose (Negative) mg/dL Negative Range/Units 01/21/22 01/21/22 09:00 10:12 WBC (4.4-10.8) 10^3/uL RBC (4.36-5.78) 10^6/uL Hgb (13.5-17.5) g/dL Hct (40.0-50.0) % MCV (80-95) fL MCH (27.0-33.0) pg MCHC (32.0-36.0) % RDW (11.8-14.1) % Plt Count (130-400) 10^3/uL MPV (8.0-11.0) fL Immature Gran % Neutrophils % Band Neutrophils % Lymphocytes % Monocytes % Eosinophils % Basophils % Metamyelocytes % Nucleated RBC % (0.0-0.3) % Absolute Neutrophils (1.2-6.7) 10^3/uL Absolute Lymphocytes (1.2-3.4) 10^3/uL Absolute Monocytes (0.1-0.8) 10^3/uL Absolute Eosinophils (0.0-0.7) 10^3/uL Absolute Basophils (0.0-0.2) 10^3/uL RBC Morphology PT (9.3-11.0) sec > 83.4 H 10.2 INR (0.9-1.1) > 9.6 H* 1.0 APTT (21.0-27.5) sec 31.4 H 26.4 Sodium (136-145) mmol/L Potassium (3.5-5.1) mmol/L Chloride (98-107) mmol/L Carbon Dioxide (21.0-32.0) mmol/L Anion Gap (3-11) mmol/L BUN (7-18) mg/dL Creatinine (0.70-1.30) mg/dL Est GFR (CKD-EPI 2020) (mL/min/1.73m2) Glucose (74-106) mg/dL Calcium (8.5-10.1) mg/dL Total Bilirubin (0.2-1.0) mg/dL AST (15-37) U/L ALT (16-63) U/L Alkaline Phosphatase (46-116) U/L Total Protein (6.4-8.2) g/dL Albumin (3.4-5.0) g/dL Lipase (73-393) U/L Urine Color (Yellow) Urine Clarity (Clear) Urine pH (5-8) Ur Specific Trail (1.005-1.025) Urine Protein (Negative) mg/dL Urine Ketones (Negative) mg/dL Urine Blood (Negative) Urine Nitrite (Negative) Urine Bilirubin (Negative) Urine Urobilinogen (Up TO 0.2) EU/dL Ur Leukocyte Esterase (Negative) Urine Glucose (Negative) mg/dL HPI General Mode of arrival: ambulatory. Date/Time Provider Initiated Documentation: 01/21/22 08:00. Limitations to Documentation: no limitations. Information obtained by: patient. HPI Narrative: Patient is a 52-year-old male with history of prostate cancer metastatic to lymph nodes and bone presents with a complaint blood in stool this morning. Patient states he had a normal bowel movement earlier today which was brown and a second bowel movement which was also brown but upon wiping noted bright red blood on the toilet paper and in the toilet. He does admit to nausea which has been chronic since his diagnosis of prostate cancer but denies any vomiting. He does also admit to lower abdominal cramping this morning after his rectal bleeding. He states he is not taking anticoagulation. He states he had been receiving chemotherapy for his prostate cancer but it caused symptoms of shortness of breath and dizziness and was determined to be ineffective with rising PSA so his chemotherapy was discontinued. He has received 5 sessions of palliative radiation which are now finished. He has also received 5 blood transfusions in the past month and was told to continue to monitor for signs of bleeding. Related Data Home Medications Medication Instructions Recorded Confirmed cholecalciferol (vitamin D3) 10 20 mcg PO DAILY 12/22/21 01/21/22 mcg (400 unit) tablet lansoprazole 30 mg capsule,delayed 30 mg PO DAILY 12/22/21 01/21/22 release (Prevacid) prochlorperazine maleate 10 mg 10 mg PO Q6H PRN 12/31/21 01/21/22 tablet (Compazine) calcium glucarate 500 mg capsule 3 tab-cap PO DAILY 01/01/22 01/21/22 enzalutamide 40 mg tablet (Xtandi) 160 mg PO DAILY 01/01/22 01/21/22 oxycodone 30 mg tablet,crush 30 mg PO Q12H 01/01/22 01/21/22 resistant,extended release 12 hr (OxyContin) sennosides 8.6 mg capsule (senna) 8.6 mg PO BID PRN constipation #60 01/01/22 01/21/22 caps oxycodone 5 mg tablet 5 - 10 mg PO .q3-h PRN pain #168 01/11/22 01/21/22 tabs Previous Rx's Medication Instructions Recorded sennosides 8.6 mg capsule (senna) 8.6 mg PO BID PRN constipation #60 01/01/22 caps oxycodone 5 mg tablet 5 - 10 mg PO .q3-h PRN pain #168 01/11/22 tabs Allergies Allergy/AdvReac Type Severity Reaction Status Date / Time cabazitaxel Allergy Intermediate flushing, Verified 01/21/22 08:07 diaphoresis, elevated BP, chest tightness General Stated Complaint: GI Bleed HOOD: 3 Review of Systems All systems reviewed & are unremarkable except as noted in HPI and below Constitutional Constitutional: Denies chills, Denies excessive sweating, Denies fatigue, Denies fever(s), Denies weakness and Denies weight loss Eyes Eyes: Reports system reviewed and no additional complaints, except as documented and Denies blurry vision ENT Ears, Nose, Mouth, and Throat: Denies vertigo, Denies dizziness, Denies otalgia, Denies nasal congestion, Denies sore throat and Denies throat swelling Cardiovascular Cardiovascular: Denies chest pain, Denies syncope, Denies rapid heart rate and Denies dyspnea Respiratory Respiratory: Denies chest congestion, Denies cough, Denies pain on inspiration and Denies dyspnea Gastrointestinal Gastrointestinal: Reports abdominal pain, Reports hematochezia, Denies diarrhea, Reports nausea and Denies vomiting Genitourinary Genitourinary: Denies hematuria, Denies dysuria and Denies flank pain Musculoskeletal Musculoskeletal: Denies back pain and Denies joint swelling Integumentary/Breasts Skin/Breast: Denies lesions and Denies rash Neurologic Neurologic: Denies behavioral changes, Denies confusion, Denies vertigo, Denies dizziness, Denies syncope, Denies localized weakness and Denies weakness Psychiatric Psychiatric: Denies behavioral changes, Denies confusion and Denies depression Endocrine Endocrine: Denies excessive sweating and Denies fatigue Hematologic/Lymphatic Hematologic/Lymphatic: Denies easy bruising and Denies lymphadenopathy Allergic/Immunologic Allergic/Immunologic: Denies throat swelling PFSH All Active Problems (Updated 01/21/22 @ 15:06 by Sunshine Holder DO) Colitis (Acute) Rectal bleeding (Acute) Palliative care patient (Acute) Constipation due to opioid therapy (Acute) Cancer related pain (Acute) Genetic counseling (Acute) I wonder if genetic testing/counselignis appropriate based on his type of cancer for family Hx. ?? Neuropathy (Acute) fingers/feet, per Onc note, 04/28/21 .. (Hx left CT??) Bone metastases (Acute) Interval increase @ axial/appendicular skel per 04/17/21 Onc note (Mali Singer, RECOVERY AGENT). Widespread osseous metastatic dz, 03/2020 bone scan. Diffuse sclerotic bony met (T/L spine, Ribs, Sternum), CT Chest & Bone Scan, 10/2019. Laceration of left hand (Acute) Numbness of finger (Acute) Left middle finger, possibly 2' medial nn (Hx carpal tunnel) Prostate cancer (Chronic) 10/27/21: last cycle of cabazitaxel; stable imaging with no progression of metastases. 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 Sclerotic bone lesions with very abnormal prostate exam. Bilateral post-traumatic osteoarthritis of knee (Acute 01/12/17) Hx w/ Fady Quan. Prepatellar bursitis of right knee (Acute 05/02/17) Medical History Skin cancer Family History Mother No problems noted. Father No problems noted. Sister No problems noted. Sister No problems noted. Brother No problems noted. Grandfather No problems noted. Grandfather Neoplasm Grandmother No problems noted. Grandmother Neoplasm Daughter No problems noted. Daughter No problems noted. 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 Sexually active: No Do you think of yourself as: straight/heterosexual Current gender identity: male What type of physical activity do you participate in: none Seatbelt use: always Helmet use: Yes Drive intox or ride w/intox 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 Do you feel safe at home: Yes Do you feel safe in your relationship?: Yes Exam Const General: cooperative and no acute distress Orientation: alert, awake and oriented x3 HENMT Head: normal to inspection Ears: hearing grossly normal bilaterally and external ears normal General nose exam: external nose normal Face and sinus: normal facial exam Mouth: oral mucosae normal Teeth and gingiva: dentition normal Eyes General: appearance normal, both eyes and all related structures Eyelids: eyelids normal Pupils: PERRL EOM: EOM intact bilaterally Neck Neck: normal visual inspection Lymphatic: no lymphadenopathy noted Chest Chest: normal inspection of the chest Resp Effort & Inspection: normal respiratory effort and able to speak in complete sentences Auscultation: clear to auscultation bilaterally Cardio Rate: regular rate Rhythm: regular rhythm GI Inspection: normal to inspection Palpation: soft, not firm, no guarding, no hepatosplenomegaly, no masses and nontender Auscultation: normal bowel sounds Rectal Exam: visual inspection normal and heme positive stool (brown stool) 2+ Back/Spine/Pelvis Back: no CVA tenderness Skin General skin exam: no rashes or lesions noted Neuro General: patient alert and patient awake Cognition: normal cognition Speech: speech normal Gait: normal gait Motor: muscle tone normal throughout Sensory Exam: no sensory deficits noted Extrem General: normal to inspection, full ROM and capillary refill normal Psych Appearance: grossly normal Mental Status: mental status grossly normal Speech and Movement: speech and movement normal Affect: normal affect Thought Process: normal Course Vital Signs Vital signs: Vital Signs Temperature 97.7 F 01/21/22 07:42 Pulse 101 H 01/21/22 07:42 Respiratory Rate 16 01/21/22 07:42 Blood Pressure 141/78 H 01/21/22 07:42 Pulse Oximetry 99 01/21/22 07:42 Temperature 97.7 F 01/21/22 07:42 Pulse 101 H 01/21/22 07:42 Respiratory Rate 16 01/21/22 07:42 Respiratory Effort Non-Labored 01/21/22 07:46 Blood Pressure 141/78 H 01/21/22 07:42 Blood Pressure Position Sitting 01/21/22 07:42 Pulse Oximetry 99 01/21/22 07:42 Oxygen Delivery Method Room Air 01/21/22 07:42 Oxygen Flow Rate 0 01/21/22 07:42 Pain Level 2 01/21/22 07:42
[2022-01-21] MEDS: Normal Saline 250 ML 500 ML IV (08:34)
[2022-01-21 08:42] LABS: Abs Immature Grans 0.26 10^3/uL (0.0-0.06); HCT 28.7 % (40.0-50.0); HGB 9.3 g/dL (13.5-17.5); MCH 30.2 pg (27.0-33.0); MCHC 32.4 % (32.0-36.0); MCV 93 fL (80-95); Platelet Count 162 10^3/uL (130-400); RBC 3.08 10^6/uL (4.36-5.78); RDW 18.5 % (11.8-14.1)
[2022-01-21 08:45] LABS: Bilirubin Negative (Negative); Blood Negative (Negative); Clarity Clear (Clear); Glucose Negative (Negative); Ketones Negative (Negative); Leukocyte Esterase Negative (Negative); Nitrite Negative (Negative); Specific Gravity 1.025 (1.005-1.025); Urobilinogen 0.2 EU/dL (Up TO 0.2); pH 5.5 (5-8)
--- NOTE | 2022-01-21 08:55 | DI.CT_ITS ---
Exam(s) CT ABDOMEN PELVIS W EXAM: CT ABDOMEN PELVIS W CLINICAL HISTORY: lower abd cramping, r/o colitis, diverticulitis. TECHNIQUE: Imaging Protocol: Axial computed tomography images with coronal and sagittal reformatted images were created and reviewed CONTRAST MATERIAL: Intravenous: Omnipaque 100cc Oral: None COMPARISON: CT CT CHEST/ABD/PEL W from 01/14/[address] RENAL COLIC WO from 08/24/[address] CHEST W from 11/09/[address] ABDOMEN PELVIS WO from 10/01/2021 FINDINGS: VISUALIZED LUNG BASES: Small subpleural nodular infiltrate in the anterior basal segment of the left lower lobe is again noted. Basically unchanged from CT scan of 11/09/2019 but was not evident on CT scan of 01/14/2019. No pleural effusions. ABDOMEN: There is no ascites. LIVER: There are no focal hepatic lesions evident . GALLBLADDER/BILIARY: No obvious gallbladder pathology. CBD is not dilated. PANCREAS: No evidence of pancreatic mass nor dilatation of the pancreatic duct. SPLEEN: Spleen is not enlarged. No obvious intrasplenic lesions. Splenic and portal veins are paten t. ADRENALS: There are no significant adrenal masses. KIDNEYS:No cysts evident. No solid renal masses. No calculi nor hydronephrosis.. ABDOMINAL AORTA: Abdominal aorta is not enlarged. LYMPH NODES:There is no retroperitoneal nor paraaortic adenopathy. ABDOMINAL WALL: Fat containing right inguinal hernia. No bowel loops therein. No bowel obstruction. GI: There is no evidence of bowel obstruction, free air, nor abscess. PELVIS: GI: Appendix is not seen but there is no evidence of appendicitis.No evidence of sigmoid diverticulit is.The left side of the colon is collapsed. Wall is difficult to assess accurately. However, there appears to be a probable colitis pattern in the sigmoid. LYMPH NODES: There is no intrapelvic nor inguinal adenopathy. REPRODUCTIVE: Prostate gland is small. Seminal vesicles unremarkable. URINARY BLADDER: Not distended. Uniformly thickened wall. No diverticuli. OSSEOUS: Diffuse blastic skeletal metastases are again noted. IMPRESSION: 1. Diffuse blastic skeletal metastases again noted. Prostate gland is not enlarged. No intrapelvic adenopathy. 2. No evidence of metastatic disease in the abdomen and pelvis. No ascites. 3. Although difficult to assess without intraluminal oral contrast, the appearance of the rectum and sigmoid probably reflects colitis pattern. Appearance is significantly different from the CT scan of 10/01/2021. There are few sigmoid diverticuli but no evidence of acute diverticulitis. Findings discussed by phone with ER provider. RADIATION DOSE DELIVERED: 902.98mGy.cm Total DLP DATA REPOSITORY: All CT scans at this facility are submitted to the National Radiology Data Registry (NRDR) Dose Index Registry (DIR) with the [employer] (A[employer]). RADIATION OPTIMIZATION: All CT scans at this facility use at least one of these dose optimization te chniques: automated exposure control; mA and/or kV adjustment per patient size (includes targeted exa ms where dose is matched to clinical indication); or iterative reconstruction.
[2022-01-21 08:57] LABS: ALT 22 U/L (16-63); AST 55 U/L (15-37); Albumin 2.9 g/dL (3.4-5.0); Alkaline Phosphatase 121 U/L (46-116); Anion Gap 10.8 mmol/L (3-11); BUN 10 mg/dL (7-18); Bilirubin, Total 0.4 mg/dL (0.2-1.0); CO2 24.2 mmol/L (21.0-32.0); CREATININE 0.7 mg/dL (0.70-1.30); Calcium 8.7 mg/dL (8.5-10.1); Chloride 103 mmol/L (98-107); Estimated GFR 110.18 (mL/min/1.73m2); Glucose 109 mg/dL (74-106); Lipase 84 U/L (73-393); Potassium 3.8 mmol/L (3.5-5.1); Sodium 138 mmol/L (136-145); Total Protein 7.3 g/dL (6.4-8.2)
[2022-01-21] MEDS: Omnipaque 350 MG/ML 100 ML BTL IJ (09:00)
[2022-01-21 09:21] LABS: Absolute Basophil Count 0.04 10^3/uL (0.0-0.2); Absolute Eosinophil Count 0.16 10^3/uL (0.0-0.7); Absolute Lymphocyte Count 0.32 10^3/uL (1.2-3.4); Absolute Monocyte Count 0.44 10^3/uL (0.1-0.8); Absolute Neutrophil Count 2.96 10^3/uL (1.2-6.7); Bands % 4; Diff Comment Manual Differential; Metamyelocytes % 2; RBC Morphology Normal
[2022-01-21 09:27] LABS: PTT Activated 31.4 sec (21.0-27.5)
--- NOTE | 2022-01-21 09:30 | DI.CT_ITS ---
Exam(s) CT ABDOMEN PELVIS WO EXAM: CT ABDOMEN PELVIS WO CLINICAL HISTORY: lower abd pain, rectal bleeding, r/o colitis. TECHNIQUE: Imaging Protocol: Axial computed tomography images with coronal and sagittal reformatted images were created and reviewed CONTRAST MATERIAL: Intravenous: none Oral: None COMPARISON: CT CT ABDOMEN PELVIS W from 01/21/2022 FINDINGS: See combined report. This patient had repeat study after oral contrast within a few hours so the con trast could region sigmoid Suspicious for colitis pattern in the sigmoid. Also again noted are the previously documented extens jojo blastic metastases in the skeleton. IMPRESSION: 1. See combined report 2. 3. RADIATION DOSE DELIVERED: 859.02mGy.cm Total DLP DATA REPOSITORY: All CT scans at this facility are submitted to the National Radiology Data Registry (NRDR) Dose Index Registry (DIR) with the [employer] (ACR). RADIATION OPTIMIZATION: All CT scans at this facility use at least one of these dose optimization te chniques: automated exposure control; mA and/or kV adjustment per patient size (includes targeted exa ms where dose is matched to clinical indication); or iterative reconstruction.
[2022-01-21 09:46] LABS: Prothrombin Time > 83.4 sec (9.3-11.0)
[2022-01-21 09:49] LABS: INR > 9.6 (0.9-1.1)
[2022-01-21 10:30] LABS: PTT Activated 26.4 sec (21.0-27.5); Prothrombin Time 10.2 sec (9.3-11.0)
[2022-01-21] MEDS: Breeza Beverage 473 ML BTL PO (11:22)
[2022-01-21] MEDS: Gastrografin 120 ML BTL IVP (11:31)
[2022-01-21 11:57] VITALS: BP 124/66; PULSE 89; RESP 18; O2SAT 98
--- NOTE | 2022-01-21 13:00 | DI.CT_ITS ---
Exam(s) CT ABDOMEN PELVIS WO EXAM: CT ABDOMEN PELVIS WO CLINICAL HISTORY: lower abd pain, rectal bleeding, r/o colitis. TECHNIQUE: Imaging Protocol: Axial computed tomography images with coronal and sagittal reformatted images were created and reviewed CONTRAST MATERIAL: Intravenous: none Oral: Yes COMPARISON: CT CT ABDOMEN PELVIS WO from 01/21/2022 FINDINGS: VISUALIZED LUNG BASES: No nodules nor pleural effusions evident. ABDOMEN: There is no ascites. LIVER: There are no obvious focal hepatic lesions evident of this noninfused study. GALLBLADDER/BILIARY: No obvious gallbladder pathology. CBD is not dilated. PANCREAS: No evidence of pancreatic mass nor dilatation of the pancreatic duct. SPLEEN: Spleen is not enlarged. No obvious intrasplenic lesions. ADRENALS: There are no significant adrenal masses. KIDNEYS:No cysts evident. No solid renal masses. No calculi nor hydronephrosis. . ABDOMINAL AORTA: Abdominal aorta is not enlarged. LYMPH NODES: There is no retroperitoneal nor paraaortic adenopathy. ABDOMINAL WALL: No evidence of significant anterior abdominal wall nor inguinal hernia. GI: There is no evidence of bowel obstruction, free air, nor abscess. PELVIS: LYMPH NODES: There is no intrapelvic nor inguinal adenopathy. GI: No evidence of appendicitis.There are few diverticuli in the sigmoid but no evidence of sigmoid d iverticulitis.Subtle suggestion of possible colitis pattern in the sigmoid. URINARY BLADDER: No calculi nor obvious masses evident REPRODUCTIVE: Prostate not enlarged. No obturator adenopathy. OSSEOUS: Extensive blastic metastases again noted throughout the entire visualized skeleton within th e field of view of this study, previously documented. No acute fractures evident. IMPRESSION: 1. There appears to be a subtle colitis pattern in the sigmoid. 2. Sigmoid diverticuli but no evidence of acute diverticulitis. 3. Extensive bony blastic metastases again noted. RADIATION DOSE DELIVERED: 938.48mGy.cm Total DLP DATA REPOSITORY: All CT scans at this facility are submitted to the National Radiology Data Registry (NRDR) Dose Index Registry (DIR) with the [employer] (ACR). RADIATION OPTIMIZATION: All CT scans at this facility use at least one of these dose optimization te chniques: automated exposure control; mA and/or kV adjustment per patient size (includes targeted exa ms where dose is matched to clinical indication); or iterative reconstruction.
[2022-01-21 13:59] VITALS: BP 132/73; PULSE 89; RESP 16; TEMP 36.6; O2SAT 99
[2022-01-21 15:10] VITALS: BP 127/74; PULSE 96; TEMP 36.7; O2SAT 98
[2022-01-21 15:16] VITALS: BP 127/74; PULSE 96; TEMP 36.7; O2SAT 98
== END 2022-01-21 15:15 | disposition home or self-care (01) ==
PROVIDERS: Emergency Provider Physician Assistant; PCP Student in an Organized Health Care Education/Training Program
DX: K52.9 Noninfective gastroenteritis and colitis, unspecified (principal); K62.5 Hemorrhage of anus and rectum
CPT/HCPCS: 36415; 80053; 83690; 96365; 99285; 74176; 74177; 81003; 85025; 85610; 85730; 99284; J3490

== ENCOUNTER 2022-02-16 02:40 | Outpatient (RCR) | payer OTHER, SELFPAY ==
[2022-01-21 00:13] VITALS: BP 118/75; PULSE 85; RESP 16; TEMP 36.2
[2022-01-26 08:28] LABS: HCT 27.1 % (40.0-50.0); HGB 9.1 g/dL (13.5-17.5); MCH 30.5 pg (27.0-33.0); MCHC 33.6 % (32.0-36.0); MCV 91 fL (80-95); MPV 9.2 fL (8.0-11.0); Platelet Count 161 10^3/uL (130-400); RBC 2.98 10^6/uL (4.36-5.78); RDW 18.3 % (11.8-14.1); RDW-SD 60.9 fL; WBC 4.32 10^3/uL (4.4-10.8)
[2022-01-26 08:47] LABS: ALT 22 U/L (16-63); AST 32 U/L (15-37); Alkaline Phosphatase 130 U/L (46-116); BUN 12 mg/dL (7-18); Bilirubin, Total 0.4 mg/dL (0.2-1.0); CREATININE 0.7 mg/dL (0.70-1.30); Calcium 8.7 mg/dL (8.5-10.1); Chloride 104 mmol/L (98-107); Estimated GFR 110.18 (mL/min/1.73m2); Glucose 121 mg/dL (74-106); Sodium 140 mmol/L (136-145); Total Protein 7.3 g/dL (6.4-8.2)
[2022-01-26 09:05] LABS: Absolute Eosinophil Count 0.35 10^3/uL (0.0-0.7); Absolute Lymphocyte Count 0.69 10^3/uL (1.2-3.4); Absolute Monocyte Count 0.39 10^3/uL (0.1-0.8); Absolute Neutrophil Count 2.72 10^3/uL (1.2-6.7); Bands % 3; Diff Comment Manual Differential; Metamyelocytes % 2; Myelocytes % 1; Promyelocytes % 1; RBC Morphology Normal
[2022-02-05 08:29] LABS: Abs Immature Grans 0.24 10^3/uL (0.0-0.06); HCT 27.1 % (40.0-50.0); HGB 8.8 g/dL (13.5-17.5); MCH 30.2 pg (27.0-33.0); MCHC 32.5 % (32.0-36.0); MCV 93 fL (80-95); MPV 9.3 fL (8.0-11.0); Platelet Count 186 10^3/uL (130-400); RBC 2.91 10^6/uL (4.36-5.78); RDW 18.9 % (11.8-14.1); RDW-SD 62.6 fL; WBC 4.64 10^3/uL (4.4-10.8)
[2022-02-05 08:56] LABS: Absolute Eosinophil Count 0.23 10^3/uL (0.0-0.7); Absolute Lymphocyte Count 0.97 10^3/uL (1.2-3.4); Absolute Monocyte Count 0.23 10^3/uL (0.1-0.8); Absolute Neutrophil Count 3.02 10^3/uL (1.2-6.7); Bands % 3; Metamyelocytes % 2; Myelocytes % 2
[2022-02-05 08:57] LABS: Anisocytosis 1+; Diff Comment Manual Differential; Polychromasia Present
[2022-02-09 09:27] LABS: Abs Immature Grans 0.21 10^3/uL (0.0-0.06); Absolute Basophil Count 0.03 10^3/uL (0.0-0.2); Absolute Eosinophil Count 0.13 10^3/uL (0.0-0.7); Absolute Lymphocyte Count 0.46 10^3/uL (1.2-3.4); Basophils % 0.7; HCT 24.9 % (40.0-50.0); HGB 8.1 g/dL (13.5-17.5); Immature Grans % 4.8; Lymphocytes % 10.6; MCH 30.3 pg (27.0-33.0); MCHC 32.5 % (32.0-36.0); MCV 93 fL (80-95); MPV 8.8 fL (8.0-11.0); Monocytes % 13.9; Platelet Count 178 10^3/uL (130-400); RBC 2.67 10^6/uL (4.36-5.78); RDW 19.3 % (11.8-14.1); WBC 4.33 10^3/uL (4.4-10.8)
[2022-02-09 09:46] LABS: ALT 18 U/L (16-63); AST 54 U/L (15-37); Albumin 3.2 g/dL (3.4-5.0); Alkaline Phosphatase 139 U/L (46-116); Anion Gap 9.8 mmol/L (3-11); BUN 14 mg/dL (7-18); Bilirubin, Total 0.3 mg/dL (0.2-1.0); CO2 25.2 mmol/L (21.0-32.0); CREATININE 0.7 mg/dL (0.70-1.30); Calcium 9.2 mg/dL (8.5-10.1); Chloride 102 mmol/L (98-107); Estimated GFR 110.18 (mL/min/1.73m2); Glucose 130 mg/dL (74-106); Potassium 3.8 mmol/L (3.5-5.1); Sodium 137 mmol/L (136-145); Total Protein 7.4 g/dL (6.4-8.2)
[2022-02-09] MEDS: Acetaminophen 325 MG TAB 650 MG PO (12:21)
[2022-02-09] MEDS: diphenhydrAMINE 25 MG CAP PO (12:22)
[2022-02-09] MEDS: Normal Saline Flush 10 ML SYR IVP (12:30)
[2022-02-09 12:34] VITALS: BP 132/78; PULSE 94; RESP 17; TEMP 36.4; O2SAT 99
[2022-02-09 12:50] VITALS: BP 137/79; PULSE 91; RESP 17; TEMP 36.5; O2SAT 99
[2022-02-09 13:05] VITALS: BP 127/77; PULSE 92; RESP 18; TEMP 36.3; O2SAT 98
[2022-02-09 13:35] VITALS: BP 127/75; PULSE 86; RESP 18; TEMP 36.4; O2SAT 99
[2022-02-09 14:40] VITALS: BP 122/69; PULSE 86; RESP 17; TEMP 36.6; O2SAT 99
[2022-02-10 11:49] LABS: PSA, Ultrasensitive 364 ng/mL (<= 3.5)
[2022-02-15 23:03] LABS: Testosterone, Total 8.6 ng/dL (240-950)
[2022-02-16 08:27] LABS: Abs Immature Grans 0.12 10^3/uL (0.0-0.06); Absolute Basophil Count 0.03 10^3/uL (0.0-0.2); Absolute Eosinophil Count 0.17 10^3/uL (0.0-0.7); Absolute Lymphocyte Count 0.65 10^3/uL (1.2-3.4); Absolute Monocyte Count 0.68 10^3/uL (0.1-0.8); Absolute Neutrophil Count 2.87 10^3/uL (1.2-6.7); Basophils % 0.7; Eosinophils % 3.8; HCT 29.4 % (40.0-50.0); HGB 9.6 g/dL (13.5-17.5); Immature Grans % 2.7; Lymphocytes % 14.4; MCH 30.8 pg (27.0-33.0); MCHC 32.7 % (32.0-36.0); MCV 94 fL (80-95); MPV 8.6 fL (8.0-11.0); Neutrophils % 63.4; Platelet Count 249 10^3/uL (130-400); RBC 3.12 10^6/uL (4.36-5.78); RDW 18.7 % (11.8-14.1); RDW-SD 64.4 fL; WBC 4.52 10^3/uL (4.4-10.8)
== END 2022-02-19 23:59 | disposition home or self-care (01) ==
LOC: INF 02:40
PROVIDERS: PCP Student in an Organized Health Care Education/Training Program; Visit Provider Internal Medicine
DX: D63.0 Anemia in neoplastic disease (principal); C61 Malignant neoplasm of prostate; Z79.818 Long term (current) use of other agents affecting estrogen receptors and estrogen levels
CPT/HCPCS: 36415; 36430; 80053; 84153; 84403; 86850; 86900; 86901; 86920; 85025; P9016

== ENCOUNTER 2022-03-16 01:59 | Outpatient (RCR) | payer OTHER, SELFPAY ==
[2022-02-20 00:20] VITALS: BP 122/69; PULSE 86; RESP 17; TEMP 36.6
[2022-02-23 08:40] LABS: Abs Immature Grans 0.14 10^3/uL (0.0-0.06); Absolute Basophil Count 0.02 10^3/uL (0.0-0.2); Absolute Eosinophil Count 0.02 10^3/uL (0.0-0.7); Absolute Lymphocyte Count 0.58 10^3/uL (1.2-3.4); Absolute Monocyte Count 1.07 10^3/uL (0.1-0.8); Absolute Neutrophil Count 5.18 10^3/uL (1.2-6.7); Basophils % 0.3; Eosinophils % 0.3; HCT 24.8 % (40.0-50.0); HGB 8.1 g/dL (13.5-17.5); Lymphocytes % 8.3; MCH 30.6 pg (27.0-33.0); MCHC 32.7 % (32.0-36.0); MCV 94 fL (80-95); MPV 8.8 fL (8.0-11.0); Monocytes % 15.3; Neutrophils % 73.8; Platelet Count 287 10^3/uL (130-400); RBC 2.65 10^6/uL (4.36-5.78); RDW 18.3 % (11.8-14.1); RDW-SD 62.7 fL; WBC 7.01 10^3/uL (4.4-10.8)
[2022-02-23] MEDS: Normal Saline Flush 10 ML SYR IVP (09:19)
[2022-02-23] MEDS: Acetaminophen 325 MG TAB 650 MG PO (09:19)
[2022-02-23] MEDS: diphenhydrAMINE 25 MG CAP PO (09:19)
[2022-02-23 09:53] VITALS: BP 117/70; PULSE 92; RESP 18; TEMP 36.7; O2SAT 98
[2022-02-23 10:10] VITALS: BP 118/69; PULSE 89; RESP 17; TEMP 36.8; O2SAT 98
[2022-02-23 10:25] VITALS: BP 116/61; PULSE 88; RESP 16; TEMP 36.6; O2SAT 97
[2022-02-23 10:55] VITALS: BP 130/71; PULSE 90; RESP 17; TEMP 36.2; O2SAT 97
[2022-02-23 11:55] VITALS: BP 122/74; PULSE 87; RESP 17; TEMP 35.9; O2SAT 98
[2022-02-23 12:17] VITALS: BP 126/76; PULSE 82; RESP 16; TEMP 36.3; O2SAT 99
[2022-03-02 08:33] LABS: Abs Immature Grans 0.25 10^3/uL (0.0-0.06); HCT 30.9 % (40.0-50.0); MCH 30.7 pg (27.0-33.0); MCHC 32.4 % (32.0-36.0); MCV 95 fL (80-95); MPV 8.5 fL (8.0-11.0); Platelet Count 308 10^3/uL (130-400); RBC 3.26 10^6/uL (4.36-5.78); RDW 17.4 % (11.8-14.1); RDW-SD 60.1 fL; WBC 4.36 10^3/uL (4.4-10.8)
[2022-03-02 08:59] LABS: Absolute Basophil Count 0.04 10^3/uL (0.0-0.2); Absolute Eosinophil Count 0.09 10^3/uL (0.0-0.7); Absolute Lymphocyte Count 0.78 10^3/uL (1.2-3.4); Absolute Monocyte Count 0.22 10^3/uL (0.1-0.8); Absolute Neutrophil Count 2.96 10^3/uL (1.2-6.7); Atypical Lymphocytes % 3; Bands % 0; Diff Comment Manual Differential; Metamyelocytes % 2; Myelocytes % 4; Polychromasia Present
[2022-03-09 10:06] LABS: Abs Immature Grans 0.21 10^3/uL (0.0-0.06); Absolute Basophil Count 0.05 10^3/uL (0.0-0.2); Absolute Eosinophil Count 0.03 10^3/uL (0.0-0.7); Absolute Lymphocyte Count 0.66 10^3/uL (1.2-3.4); Absolute Monocyte Count 0.62 10^3/uL (0.1-0.8); Absolute Neutrophil Count 3.93 10^3/uL (1.2-6.7); Basophils % 0.9; Eosinophils % 0.5; HCT 29.4 % (40.0-50.0); HGB 9.6 g/dL (13.5-17.5); Immature Grans % 3.8; MCH 31.1 pg (27.0-33.0); MCHC 32.7 % (32.0-36.0); MCV 95 fL (80-95); MPV 8.8 fL (8.0-11.0); Monocytes % 11.3; Neutrophils % 71.5; Platelet Count 305 10^3/uL (130-400); RBC 3.09 10^6/uL (4.36-5.78); RDW 17.2 % (11.8-14.1)
[2022-03-09 10:22] LABS: ALT 19 U/L (16-63); AST 41 U/L (15-37); Albumin 3.3 g/dL (3.4-5.0); Alkaline Phosphatase 121 U/L (46-116); Anion Gap 8.5 mmol/L (3-11); BUN 13 mg/dL (7-18); Bilirubin, Total 0.4 mg/dL (0.2-1.0); CO2 27.5 mmol/L (21.0-32.0); CREATININE 0.7 mg/dL (0.70-1.30); Calcium 9.5 mg/dL (8.5-10.1); Chloride 103 mmol/L (98-107); Estimated GFR 110.18 (mL/min/1.73m2); Glucose 127 mg/dL (74-106); Potassium 3.6 mmol/L (3.5-5.1); Sodium 139 mmol/L (136-145); Total Protein 7.6 g/dL (6.4-8.2)
[2022-03-10 14:45] LABS: PSA, Ultrasensitive 433 ng/mL (<= 3.5)
[2022-03-14 15:27] LABS: Testosterone, Total 16 ng/dL (240-950)
[2022-03-16 08:31] LABS: Abs Immature Grans 0.19 10^3/uL (0.0-0.06); Absolute Basophil Count 0.02 10^3/uL (0.0-0.2); Absolute Eosinophil Count 0.07 10^3/uL (0.0-0.7); Absolute Lymphocyte Count 0.75 10^3/uL (1.2-3.4); Absolute Monocyte Count 0.89 10^3/uL (0.1-0.8); Absolute Neutrophil Count 4.48 10^3/uL (1.2-6.7); Basophils % 0.3; Eosinophils % 1.1; HCT 26.4 % (40.0-50.0); HGB 8.7 g/dL (13.5-17.5); Lymphocytes % 11.7; MCH 31.6 pg (27.0-33.0); MCV 96 fL (80-95); MPV 8.6 fL (8.0-11.0); Monocytes % 13.9; Platelet Count 304 10^3/uL (130-400); RBC 2.75 10^6/uL (4.36-5.78); RDW 17.2 % (11.8-14.1); RDW-SD 60.3 fL
== END 2022-03-22 23:59 | disposition home or self-care (01) ==
LOC: INF 01:59
PROVIDERS: PCP Student in an Organized Health Care Education/Training Program; Visit Provider Internal Medicine
DX: D63.0 Anemia in neoplastic disease (principal); C61 Malignant neoplasm of prostate
CPT/HCPCS: 36415; 36430; 80053; 84153; 84403; 86850; 86900; 86901; 86920; 85025; P9016

== ENCOUNTER 2022-04-20 03:26 | Outpatient (RCR) | payer OTHER, SELFPAY ==
[2022-03-23 00:08] VITALS: BP 126/76; PULSE 82; RESP 16; TEMP 36.3
[2022-03-23 08:37] LABS: Abs Immature Grans 0.26 10^3/uL (0.0-0.06); Absolute Basophil Count 0.05 10^3/uL (0.0-0.2); Absolute Eosinophil Count 0.06 10^3/uL (0.0-0.7); Absolute Lymphocyte Count 0.65 10^3/uL (1.2-3.4); Absolute Monocyte Count 0.75 10^3/uL (0.1-0.8); Absolute Neutrophil Count 4.06 10^3/uL (1.2-6.7); Basophils % 0.9; HGB 9.3 g/dL (13.5-17.5); Immature Grans % 4.5; Lymphocytes % 11.1; MCH 31.6 pg (27.0-33.0); MCHC 33.2 % (32.0-36.0); MCV 95 fL (80-95); MPV 8.6 fL (8.0-11.0); Monocytes % 12.9; Neutrophils % 69.6; Platelet Count 326 10^3/uL (130-400); RBC 2.94 10^6/uL (4.36-5.78); RDW 16.9 % (11.8-14.1); RDW-SD 58.2 fL; WBC 5.83 10^3/uL (4.4-10.8)
[2022-03-30 08:21] LABS: Abs Immature Grans 0.14 10^3/uL (0.0-0.06); Absolute Basophil Count 0.02 10^3/uL (0.0-0.2); Absolute Eosinophil Count 0.01 10^3/uL (0.0-0.7); Absolute Lymphocyte Count 0.54 10^3/uL (1.2-3.4); Absolute Monocyte Count 0.74 10^3/uL (0.1-0.8); Absolute Neutrophil Count 6.86 10^3/uL (1.2-6.7); Basophils % 0.2; Eosinophils % 0.1; HCT 23.1 % (40.0-50.0); HGB 7.7 g/dL (13.5-17.5); Immature Grans % 1.7; Lymphocytes % 6.5; MCHC 33.3 % (32.0-36.0); MCV 93 fL (80-95); MPV 8.5 fL (8.0-11.0); Monocytes % 8.9; Neutrophils % 82.6; Nucleated RBC 0.4 % (0.0-0.3); Platelet Count 353 10^3/uL (130-400); RBC 2.48 10^6/uL (4.36-5.78); RDW 16.4 % (11.8-14.1); RDW-SD 55.6 fL; WBC 8.31 10^3/uL (4.4-10.8)
[2022-03-30] MEDS: Acetaminophen 325 MG TAB 650 MG PO (08:45)
[2022-03-30] MEDS: Normal Saline Flush 10 ML SYR IVP (08:46)
[2022-03-30] MEDS: diphenhydrAMINE 25 MG CAP PO (08:46)
[2022-03-30 09:33] VITALS: BP 117/67; PULSE 53; RESP 18; TEMP 37; O2SAT 97
[2022-03-30 09:50] VITALS: BP 115/73; PULSE 91; RESP 18; TEMP 36.1; O2SAT 97
[2022-03-30 10:05] VITALS: BP 120/77; PULSE 91; RESP 17; TEMP 36; O2SAT 96
[2022-03-30 10:35] VITALS: BP 120/72; PULSE 87; RESP 17; TEMP 35.8; O2SAT 98
[2022-03-30 11:15] VITALS: BP 112/56; PULSE 75; RESP 17; TEMP 36.6; O2SAT 97
[2022-04-06 08:49] LABS: HCT 31.1 % (40.0-50.0); HGB 9.9 g/dL (13.5-17.5); MCH 30.9 pg (27.0-33.0); MCHC 31.8 % (32.0-36.0); MCV 97 fL (80-95); MPV 8.3 fL (8.0-11.0); Platelet Count 282 10^3/uL (130-400); RDW 16.8 % (11.8-14.1); RDW-SD 59.6 fL; WBC 6.21 10^3/uL (4.4-10.8)
[2022-04-06 09:23] LABS: Diff Comment Manual Differential
[2022-04-06 09:24] LABS: Absolute Eosinophil Count 0.25 10^3/uL (0.0-0.7); Absolute Lymphocyte Count 0.56 10^3/uL (1.2-3.4); Absolute Neutrophil Count 4.91 10^3/uL (1.2-6.7); Anisocytosis 1+; Bands % 3; Polychromasia Present
[2022-04-06 11:08] LABS: ALT 18 U/L (16-63); AST 96 U/L (15-37); Albumin 3.1 g/dL (3.4-5.0); Alkaline Phosphatase 115 U/L (46-116); Anion Gap 11.5 mmol/L (3-11); BUN 17 mg/dL (7-18); Bilirubin, Total 0.3 mg/dL (0.2-1.0); CO2 25.5 mmol/L (21.0-32.0); CREATININE 0.8 mg/dL (0.70-1.30); Calcium 9.2 mg/dL (8.5-10.1); Chloride 105 mmol/L (98-107); Estimated GFR 105.82 (mL/min/1.73m2); Glucose 140 mg/dL (74-106); Potassium 3.8 mmol/L (3.5-5.1); Sodium 142 mmol/L (136-145); Total Protein 7.5 g/dL (6.4-8.2)
[2022-04-08 11:51] LABS: PSA, Ultrasensitive 569 ng/mL (<= 3.5)
[2022-04-14 00:56] LABS: Testosterone, Total 18 ng/dL (240-950)
[2022-04-20 08:38] LABS: Abs Immature Grans 0.24 10^3/uL (0.0-0.06); Absolute Basophil Count 0.03 10^3/uL (0.0-0.2); Absolute Eosinophil Count 0.07 10^3/uL (0.0-0.7); Absolute Lymphocyte Count 0.67 10^3/uL (1.2-3.4); Absolute Monocyte Count 0.64 10^3/uL (0.1-0.8); Absolute Neutrophil Count 4.21 10^3/uL (1.2-6.7); Basophils % 0.5; Eosinophils % 1.2; HCT 28.2 % (40.0-50.0); HGB 8.8 g/dL (13.5-17.5); Immature Grans % 4.1; Lymphocytes % 11.4; MCH 30.4 pg (27.0-33.0); MCHC 31.2 % (32.0-36.0); MCV 98 fL (80-95); MPV 8.8 fL (8.0-11.0); Monocytes % 10.9; Neutrophils % 71.9; Platelet Count 288 10^3/uL (130-400); RBC 2.89 10^6/uL (4.36-5.78); RDW 17.2 % (11.8-14.1); RDW-SD 60.7 fL; WBC 5.86 10^3/uL (4.4-10.8)
== END 2022-04-21 23:59 | disposition home or self-care (01) ==
LOC: INF 03:26
PROVIDERS: PCP Student in an Organized Health Care Education/Training Program; Visit Provider Internal Medicine
DX: D63.0 Anemia in neoplastic disease (principal); C61 Malignant neoplasm of prostate
CPT/HCPCS: 36415; 36430; 80053; 84153; 84403; 86850; 86900; 86901; 86920; 85025; P9016

== ENCOUNTER 2022-05-11 01:58 | Outpatient (RCR) | payer OTHER, SELFPAY ==
[2022-04-22 00:06] VITALS: BP 112/56; PULSE 75; RESP 17; TEMP 36.6
[2022-05-04] MEDS: Normal Saline Flush 10 ML SYR IVP (08:12)
[2022-05-04 08:35] LABS: HCT 27.3 % (40.0-50.0); HGB 8.6 g/dL (13.5-17.5); MCH 30.7 pg (27.0-33.0); MCHC 31.5 % (32.0-36.0); MCV 98 fL (80-95); MPV 8.3 fL (8.0-11.0); Platelet Count 331 10^3/uL (130-400); RDW 17.2 % (11.8-14.1); RDW-SD 61.3 fL; WBC 5.62 10^3/uL (4.4-10.8)
[2022-05-04 09:03] LABS: Absolute Basophil Count 0.06 10^3/uL (0.0-0.2); Absolute Eosinophil Count 0.06 10^3/uL (0.0-0.7); Absolute Lymphocyte Count 0.73 10^3/uL (1.2-3.4); Absolute Monocyte Count 0.34 10^3/uL (0.1-0.8); Absolute Neutrophil Count 4.38 10^3/uL (1.2-6.7); Bands % 1; Diff Comment Manual Differential; Metamyelocytes % 1
[2022-05-04 09:04] LABS: Anisocytosis 3+; Polychromasia Present
[2022-05-04 09:10] LABS: ALT 12 U/L (16-63); AST 45 U/L (15-37); Albumin 2.9 g/dL (3.4-5.0); Alkaline Phosphatase 110 U/L (46-116); Anion Gap 10.3 mmol/L (3-11); BUN 12 mg/dL (7-18); Bilirubin, Total 0.3 mg/dL (0.2-1.0); CO2 26.7 mmol/L (21.0-32.0); CREATININE 0.7 mg/dL (0.70-1.30); Chloride 100 mmol/L (98-107); Estimated GFR 110.18 (mL/min/1.73m2); Glucose 108 mg/dL (74-106); Potassium 3.7 mmol/L (3.5-5.1); Sodium 137 mmol/L (136-145); Total Protein 7.4 g/dL (6.4-8.2)
[2022-05-06 10:29] LABS: PSA, Ultrasensitive 630 ng/mL (<= 3.5)
[2022-05-07 09:19] LABS: Testosterone, Total 11 ng/dL (240-950)
[2022-05-11 09:37] LABS: Abs Immature Grans 0.41 10^3/uL (0.0-0.06); HCT 27.2 % (40.0-50.0); HGB 8.5 g/dL (13.5-17.5); MCH 30.4 pg (27.0-33.0); MCHC 31.3 % (32.0-36.0); MCV 97 fL (80-95); MPV 8.5 fL (8.0-11.0); Platelet Count 293 10^3/uL (130-400); RDW 17.5 % (11.8-14.1); RDW-SD 60.6 fL; WBC 5.49 10^3/uL (4.4-10.8)
[2022-05-11 09:53] LABS: Absolute Eosinophil Count 0.05 10^3/uL (0.0-0.7); Absolute Lymphocyte Count 0.88 10^3/uL (1.2-3.4); Absolute Monocyte Count 0.82 10^3/uL (0.1-0.8); Absolute Neutrophil Count 3.57 10^3/uL (1.2-6.7); Bands % 2; Diff Comment Manual Differential; Metamyelocytes % 3
[2022-05-11 09:54] LABS: Hypochromasia 2+; Poikilocytes 2+; Polychromasia Present
[2022-05-11 09:58] LABS: ALT 14 U/L (16-63); AST 45 U/L (15-37); Alkaline Phosphatase 106 U/L (46-116); BUN 13 mg/dL (7-18); Bilirubin, Total 0.4 mg/dL (0.2-1.0); CREATININE 0.7 mg/dL (0.70-1.30); Calcium 9.4 mg/dL (8.5-10.1); Chloride 99 mmol/L (98-107); Estimated GFR 110.18 (mL/min/1.73m2); Glucose 130 mg/dL (74-106); Potassium 3.5 mmol/L (3.5-5.1); Sodium 136 mmol/L (136-145); Total Protein 7.5 g/dL (6.4-8.2)
== END 2022-05-22 23:59 | disposition home or self-care (01) ==
LOC: INF 01:58
PROVIDERS: PCP Student in an Organized Health Care Education/Training Program; Visit Provider Internal Medicine
DX: C61 Malignant neoplasm of prostate (principal); D63.0 Anemia in neoplastic disease
CPT/HCPCS: 36415; 80053; 84153; 84403; 86900; 86901; 85025

== ENCOUNTER 2022-05-14 15:41 | Emergency (ER) | payer OTHER, SELFPAY ==
[2022-05-14] VITALS (39 sets, daily range): BP systolic 111–136; BP diastolic 50–86; PULSE 80–102; RESP 15–20; TEMP 36.7–37.4; O2SAT 96–100
[2022-05-14] MEDS: Normal Saline 1,000 ML 1000 ML IV (17:31)
[2022-05-14 17:41] LABS: Abs Immature Grans 0.36 10^3/uL (0.0-0.06); HCT 23.1 % (40.0-50.0); HGB 7.4 g/dL (13.5-17.5); MCH 30.8 pg (27.0-33.0); MCV 96 fL (80-95); MPV 8.5 fL (8.0-11.0); Platelet Count 240 10^3/uL (130-400); RDW 17.4 % (11.8-14.1); RDW-SD 61.3 fL; WBC 5.63 10^3/uL (4.4-10.8)
--- NOTE | 2022-05-14 17:45 | W.ED.GENAD ---
Discharge Plan Discharge Details Chief Complaint: GenMedical Primary Care Provider: Renita Bowers ED Provider: Jason Hendricks Home Meds and New Rx's Prescriptions: No Action prochlorperazine maleate 10 mg tablet 10 mg PO Q6H PRN (Reason: nausea and vomiting) Qty: 90 3RF Biotene PBF Mouthwash 15 ml mucous membrane TID-QID PRN (Reason: dry mouth) Qty: 473 3RF Rx Instructions: swish for 15-30 secs , then spit out; do not swallow dronabinol [Marinol] 5 mg capsule 5 mg PO BID Qty: 60 3RF Rx Instructions: administer before lunch and evening meal/dinner ondansetron 4 mg tablet,disintegrating 4 mg PO Q6H PRN (Reason: nausea and vomiting) Qty: 90 3RF Rx Instructions: Palliative care patient trazodone 50 mg tablet 50 - 100 mg PO QHS Qty: 60 3RF scopolamine base 1 mg over 3 days patch 3 day 1 patch transdermal Q3D Qty: 10 0RF calcium glucarate 500 mg capsule 3 tab-cap PO DAILY Xtandi 40 mg tablet 160 mg PO DAILY senna 8.6 mg capsule 8.6 mg PO BID PRN (Reason: constipation) Qty: 60 0RF Rx Instructions: palliative care patient lansoprazole [Prevacid] 30 mg capsule,delayed release(DR/EC) 30 mg PO DAILY Rx Instructions: 12/22/21 oncology jwo cholecalciferol (vitamin D3) 10 mcg (400 unit) tablet 20 mcg PO DAILY Rx Instructions: 12/22/21 [place] [facility] [place] with calcium zoledronic gxlj-aglxyrno-gswou 4 mg/100 mL piggyback 4 mg IV Q4W Rx Instructions: administer over at least 15 mins Lupron Depot (3 month) 22.5 mg syringe kit 22.5 mg IM [id number] fentanyl 50 mcg/hr patch 72 hour 1 patch transdermal Q72H MDD 1 patch Qty: 10 0RF Rx Instructions: For cancer related pain. Palliative care patient hydromorphone 2 mg tablet 2 - 4 mg PO Q4H MDD 12 tabs PRN (Reason: pain) Qty: 30 0RF Rx Instructions: for cancer related pain palliative care patient Medical Decision Making 52-year-old male history of metastatic prostate cancer to the bone recently started on dexamethasone presents with sensation of jitteriness over the past several days, patient initiated with acute on chronic nausea no vomiting. No headache afebrile nontoxic. Does have a history of chronic anemia. Neurologically intact. Likely medication reaction to dexamethasone also also consider electrolyte abnormality versus symptomatic anemia lower suspicion for intra-abdominal process such as obstruction cholecystitis or appendicitis lower suspicion for intracranial process such as metastatic disease mass or edema. Trial of fluids, screening CBC and CMP. 20: 19 evidence of anemia likely symptomatic. Have ordered 2 units PRBC transfusion. Patient consented. Patient and patient's family requesting his nighttime medications while he is here receiving transfusion. Will observe patient for any reaction. 22:38 patient tolerated first unit without issue. Second unit running HPI General Date/Time Provider Initiated Documentation: 05/14/22 15:54. HPI Narrative: 52-year-old male history of metastatic prostate cancer presents with jitteriness in the setting of taking dexamethasone for the past 2 days. Consulted his oncologist to told him to stop taking the dexamethasone. Patient has also had decreased p.o. intake the past 2 days. No headache chest pain or shortness of breath. Related Data Home Medications Medication Instructions Recorded Confirmed cholecalciferol (vitamin D3) 10 20 mcg PO DAILY 12/22/21 05/14/22 mcg (400 unit) tablet lansoprazole 30 mg capsule,delayed 30 mg PO DAILY 12/22/21 05/14/22 release (Prevacid) calcium glucarate 500 mg capsule 3 tab-cap PO DAILY 01/01/22 05/14/22 enzalutamide 40 mg tablet (Xtandi) 160 mg PO DAILY 01/01/22 05/14/22 sennosides 8.6 mg capsule (senna) 8.6 mg PO BID PRN constipation #60 01/01/22 05/14/22 caps zoledronic acid 4 mg/100 mL in 4 mg IV Q4W 02/11/22 05/14/22 mannitol 5 %-water intravenous piggybck prochlorperazine maleate 10 mg 10 mg PO Q6H PRN nausea and 02/12/22 05/14/22 tablet vomiting #90 tabs leuprolide (3 month) 22.5 mg (3 22.5 mg IM [id number] 10/24/22 12/23/22 month) intramuscular syringe kit (Lupron Depot) saliva substitute combo no.9 15 ml mucous membrane TID-QID PRN 04/02/22 05/14/22 (Biotene PBF mouthwash) dry mouth #473 mL dronabinol 5 mg capsule (Marinol) 5 mg PO BID #60 caps 04/23/22 05/14/22 ondansetron 4 mg disintegrating 4 mg PO Q6H PRN nausea and 04/23/22 05/14/22 tablet vomiting #90 tabs trazodone 50 mg tablet 50 - 100 mg PO QHS #60 tabs 04/23/22 05/14/22 fentanyl 50 mcg/hr transdermal 1 patch transdermal Q72H #10 ea 05/11/22 05/14/22 patch hydromorphone 2 mg tablet 2 - 4 mg PO Q4H PRN pain #30 tabs 05/11/22 05/14/22 scopolamine base 1 mg over 3 days 1 patch transdermal Q3D nausea #10 05/14/22 05/14/22 transdermal patch ea Previous Rx's Medication Instructions Recorded sennosides 8.6 mg capsule (senna) 8.6 mg PO BID PRN constipation #60 01/01/22 caps prochlorperazine maleate 10 mg 10 mg PO Q6H PRN nausea and 02/12/22 tablet vomiting #90 tabs saliva substitute combo no.9 15 ml mucous membrane TID-QID PRN 04/02/22 (Biotene PBF mouthwash) dry mouth #473 mL dronabinol 5 mg capsule (Marinol) 5 mg PO BID #60 caps 04/23/22 ondansetron 4 mg disintegrating 4 mg PO Q6H PRN nausea and 04/23/22 tablet vomiting #90 tabs trazodone 50 mg tablet 50 - 100 mg PO QHS #60 tabs 04/23/22 fentanyl 50 mcg/hr transdermal 1 patch transdermal Q72H #10 ea 05/11/22 patch hydromorphone 2 mg tablet 2 - 4 mg PO Q4H PRN pain #30 tabs 05/11/22 scopolamine base 1 mg over 3 days 1 patch transdermal Q3D nausea #10 05/14/22 transdermal patch ea Allergies Allergy/AdvReac Type Severity Reaction Status Date / Time cabazitaxel Allergy Intermediate flushing, Verified 05/14/22 16:15 diaphoresis, elevated BP, chest tightness General Stated Complaint: GenMedical HOOD: 3 Review of Systems Narrative: Review of Systems Constitutional: Jitteriness Eyes: negative ENT: negative Cardiovascular: negative Respiratory: negative Gastrointestinal: negative : negative Musculoskeletal: negative Skin: negative Neurologic: negative Psych: negative PFSH All Active Problems Nausea & vomiting (Acute) Abnormal weight loss (Acute) Anemia in neoplastic disease (Acute) transfuse hgb < 8.2 qoweek managed by oncology Insomnia (Acute) Palliative care patient (Acute) Constipation due to opioid therapy (Acute) Cancer related pain (Acute) Genetic counseling (Acute) I wonder if genetic testing/counselignis appropriate based on his type of cancer for family Hx. ?? Neuropathy (Acute) fingers/feet, per Onc note, 04/28/21 .. (Hx left CT??) Bone metastases (Acute) Interval increase @ axial/appendicular skel per 04/17/21 Onc note (Mali Singer, [employer]). Widespread osseous metastatic dz, 03/2020 bone scan. Diffuse sclerotic bony met (T/L spine, Ribs, Sternum), CT Chest & Bone Scan, 10/2019. Laceration of left hand (Acute) Numbness of finger (Acute) Left middle finger, possibly 2' medial nn (Hx carpal tunnel) Prostate cancer (Chronic) 10/27/21: last cycle of cabazitaxel; stable imaging with no progression of metastases. 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 Sclerotic bone lesions with very abnormal prostate exam. Bilateral post-traumatic osteoarthritis of knee (Acute 01/12/17) Hx w/ Dre[place], [place]. Prepatellar bursitis of right knee (Acute 05/02/17) Medical History Skin cancer Family History Mother No problems noted. Father No problems noted. Sister No problems noted. Sister No problems noted. Brother No problems noted. Grandfather No problems noted. Grandfather Neoplasm Grandmother No problems noted. Grandmother Neoplasm Daughter No problems noted. Daughter No problems noted. 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 Sexually active: No Do you think of yourself as: straight/heterosexual Current gender identity: male What type of physical activity do you participate in: none Seatbelt use: always Helmet use: Yes Drive intox or ride w/intox log truck driver: No Do you feel safe at home: Yes Do you feel safe in your relationship?: Yes Exam Narrative Exam Narrative: Physical Examination General: alert, awake, cooperative, resting comfortably, no acute distress HEENT: normocephalic, atraumatic; PERRL, EOM intact, conjunctiva normal; no nasal discharge; moist mucous membranes, oral and pharyngeal mucosa normal, tolerating secretions Neck: supple, trachea midline; full ROM Chest: normal to inspection Respiratory: normal respiratory effort, speaking in full sentences, clear to auscultation, no wheezing, rales or rhonchi Cardiac: Tachycardia, regular rhythm, S1S2 intact, no murmurs rubs or gallops GI: abdomen soft, non-tender, non-distended; no palpable mass or hepatosplenomegaly Skin: no lesions, rashes or trauma appreciated Neuro: AAOx3, normal speech, moving all extremities; cranial nerves intact speech and strength intact ambulatory without assistance no ataxia Psych: Appropriate mood and affect Course Vital Signs Vital signs: Vital Signs Temperature 37.1 C 05/14/22 16:11 Pulse 102 H 05/14/22 16:11 Respiratory Rate 18 05/14/22 16:11 Blood Pressure 123/61 05/14/22 16:11 Pulse Oximetry 99 05/14/22 16:11 Temperature 37.1 C 05/14/22 16:11 Temperature Source Skin 05/14/22 16:11 Pulse 102 H 05/14/22 16:11 Respiratory Rate 18 05/14/22 16:11 Respiratory Effort Non-Labored 05/14/22 16:14 Blood Pressure 123/61 05/14/22 16:11 Blood Pressure Position Supine 05/14/22 16:11 Pulse Oximetry 99 05/14/22 16:11 Oxygen Delivery Method Room Air 05/14/22 16:11 Oxygen Flow Rate 0 05/14/22 16:11 Pain Level 0 05/14/22 16:11
[2022-05-14 17:52] LABS: Absolute Monocyte Count 0.39 10^3/uL (0.1-0.8); Absolute Neutrophil Count 4.11 10^3/uL (1.2-6.7); Bands % 2
[2022-05-14 17:53] LABS: Absolute Basophil Count 0.06 10^3/uL (0.0-0.2); Diff Comment Manual Differential; Metamyelocytes % 2; Myelocytes % 1; Polychromasia Present
[2022-05-14 18:06] LABS: ALT 16 U/L (16-63); AST 120 U/L (15-37); Albumin 3.2 g/dL (3.4-5.0); Alkaline Phosphatase 118 U/L (46-116); Anion Gap 8.9 mmol/L (3-11); BUN 9 mg/dL (7-18); Bilirubin, Total 0.2 mg/dL (0.2-1.0); CO2 28.1 mmol/L (21.0-32.0); CREATININE 0.6 mg/dL (0.70-1.30); Calcium 9.2 mg/dL (8.5-10.1); Chloride 99 mmol/L (98-107); Estimated GFR 115.43 (mL/min/1.73m2); Glucose 115 mg/dL (74-106); Magnesium 2.1 mg/dL (1.8-2.4); Sodium 136 mmol/L (136-145); Total Protein 7.4 g/dL (6.4-8.2)
[2022-05-14 18:35] LABS: PTT Activated 28.1 sec (21.0-27.5)
[2022-05-14] MEDS: Prochlorperazine 10 MG TAB PO (20:59)
[2022-05-14] MEDS: Dronabinol 2.5 MG CAP 5 MG PO (20:59)
[2022-05-14] MEDS: HYDROmorphone 2 MG TAB PO (20:59)
[2022-05-14] MEDS: traZODone 50 MG TAB PO (21:00)
[2022-05-14] MEDS: Ondansetron 0.8 MG/ML Solution 4 MG PO (21:07)
[2022-05-14] MEDS: Lansoprazole 30 MG CAPCR PO (21:07)
[2022-05-15] VITALS: O2SAT 99
[2022-05-15 00:01] VITALS: BP 122/73; PULSE 85; O2SAT 99
[2022-05-15 00:10] VITALS: O2SAT 99
[2022-05-15 00:15] VITALS: BP 125/72; PULSE 87; O2SAT 99
[2022-05-15 00:18] VITALS: RESP 15
[2022-05-15 00:20] VITALS: O2SAT 99
--- NOTE | 2022-05-15 00:22 | W.EDPROG ---
Date of service: 05/15/22 Time of Service: 00:22 Medical Decision Making Patient was signed out to me by my colleague Dr. Geremias Short. Please refer to his HPI, physical exam, assessment and plan. At time of signout we are awaiting reassessment after supplemental blood products have been given. Hemoglobin was 7.4 here today, and he was symptomatically anemic. Patient was given PRBCs, and on reassessment his color is improved, vital signs are notably stable, and patient feels well and much better clinically and would like to go home. Discussed red flags for which to return, as well as the importance of close follow-up with PCP in regards to the low hemoglobin levels. I have extensively reviewed the treatment plan and discharge instructions with the patient and their family. I have addressed all patient concerns at this time. The patient and family was made aware of what symptoms to monitor for that would warrant a return to the emergency department. Discussed the plan with the patient and family, they demonstrate verbal understanding and agreement with our assessment and plan at this time. The documentation in this chart was dictated using [employer] dictation software. Please excuse any dictation errors. Sign Out Sign Out Data: Sign Out Comment: pending reassess post transfusion, dc home Last updated by Jason Hendricks MD at 05/14/22 23:04 Discharge Plan Disposition Patient Disposition: Home Condition: Good Discharge Details Clinical Impression: Anemia Primary Care Provider: Renita Bowers ED Provider: Jason Hendricks Home Meds and New Rx's Prescriptions: No Action prochlorperazine maleate 10 mg tablet 10 mg PO Q6H PRN (Reason: nausea and vomiting) Qty: 90 3RF Biotene PBF Mouthwash 15 ml mucous membrane TID-QID PRN (Reason: dry mouth) Qty: 473 3RF Rx Instructions: swish for 15-30 secs , then spit out; do not swallow dronabinol [Marinol] 5 mg capsule 5 mg PO BID Qty: 60 3RF Rx Instructions: administer before lunch and evening meal/dinner ondansetron 4 mg tablet,disintegrating 4 mg PO Q6H PRN (Reason: nausea and vomiting) Qty: 90 3RF Rx Instructions: Palliative care patient trazodone 50 mg tablet 50 - 100 mg PO QHS Qty: 60 3RF scopolamine base 1 mg over 3 days patch 3 day 1 patch transdermal Q3D Qty: 10 0RF calcium glucarate 500 mg capsule 3 tab-cap PO DAILY Xtandi 40 mg tablet 160 mg PO DAILY senna 8.6 mg capsule 8.6 mg PO BID PRN (Reason: constipation) Qty: 60 0RF Rx Instructions: palliative care patient lansoprazole [Prevacid] 30 mg capsule,delayed release(DR/EC) 30 mg PO DAILY Rx Instructions: 12/22/21 oncology jwo cholecalciferol (vitamin D3) 10 mcg (400 unit) tablet 20 mcg PO DAILY Rx Instructions: 12/22/21 per [facility] [place] daily with calcium zoledronic hycv-qzwkzvum-divpo 4 mg/100 mL piggyback 4 mg IV Q4W Rx Instructions: administer over at least 15 mins Lupron Depot (3 month) 22.5 mg syringe kit 22.5 mg IM [id number] fentanyl 50 mcg/hr patch 72 hour 1 patch transdermal Q72H MDD 1 patch Qty: 10 0RF Rx Instructions: For cancer related pain. Palliative care patient hydromorphone 2 mg tablet 2 - 4 mg PO Q4H MDD 12 tabs PRN (Reason: pain) Qty: 30 0RF Rx Instructions: for cancer related pain palliative care patient Discharge Instructions Instructions: Anemia (ED) Additional Instructions: Blood levels were low and you have been given supplemental blood. Please follow-up closely with your primary care provider for reassessment. If you notice any worsening of your symptoms, or any new symptoms such as vomiting, diarrhea, fever, chills, shortness of breath, chest pain, numbness, weakness, or fainting , please return immediately to the emergency department for reevaluation. Please follow up with your primary care provider as soon as possible for reassessment and reevaluation. As always, it was a pleasure participating in your medical care today. Referrals: Renita Bowers DO [Primary Care Provider] -
== END 2022-05-15 00:45 | disposition home or self-care (01) ==
PROVIDERS: Emergency Medicine; Emergency Provider Student in an Organized Health Care Education/Training Program; PCP Student in an Organized Health Care Education/Training Program
DX: D64.9 Anemia, unspecified (principal); Z85.46 Personal history of malignant neoplasm of prostate
CPT/HCPCS: 36430; 80053; 86850; 86900; 86901; 86920; 96360; 99284; 83735; 85025; 85610; 85730; J8597; P9016

== ENCOUNTER 2022-06-15 18:32 | Outpatient (REF) | payer OTHER, SELFPAY ==
[2022-06-15 13:41] LABS: Abs Immature Grans 0.31 10^3/uL (0.0-0.06); Absolute Basophil Count 0.04 10^3/uL (0.0-0.2); Absolute Eosinophil Count 0.01 10^3/uL (0.0-0.7); Absolute Lymphocyte Count 0.46 10^3/uL (1.2-3.4); Absolute Monocyte Count 0.42 10^3/uL (0.1-0.8); Absolute Neutrophil Count 2.36 10^3/uL (1.2-6.7); Basophils % 1.1; Eosinophils % 0.3; HCT 24.4 % (40.0-50.0); HGB 7.8 g/dL (13.5-17.5); Immature Grans % 8.6; Lymphocytes % 12.8; MCV 94 fL (80-95); MPV 9.3 fL (8.0-11.0); Monocytes % 11.7; Neutrophils % 65.5; Nucleated RBC 0.6 % (0.0-0.3); Platelet Count 164 10^3/uL (130-400); RDW 17.3 % (11.8-14.1); RDW-SD 59.2 fL
[2022-06-15 13:42] LABS: ALT 23 U/L (16-63); AST 81 U/L (15-37); Alkaline Phosphatase 126 U/L (46-116); Anion Gap 7.1 mmol/L (3-11); BUN 9 mg/dL (7-18); Bilirubin, Total 0.4 mg/dL (0.2-1.0); CO2 30.9 mmol/L (21.0-32.0); CREATININE 0.6 mg/dL (0.70-1.30); Calcium 8.9 mg/dL (8.5-10.1); Chloride 101 mmol/L (98-107); Estimated GFR 115.43 (mL/min/1.73m2); Glucose 130 mg/dL (74-106); Potassium 3.2 mmol/L (3.5-5.1); Sodium 139 mmol/L (136-145); Total Protein 6.8 g/dL (6.4-8.2)
[2022-06-15 14:25] LABS: Diff Comment Diff Reviewed; RBC Morphology Normal
[2022-06-16 11:54] LABS: PSA, Ultrasensitive 1142 ng/mL (<= 3.5)
[2022-06-17 12:25] LABS: Testosterone, Total 13 ng/dL (240-950)
== END 2022-06-15 18:33 | disposition home or self-care (01) ==
LOC: LBN 18:32
PROVIDERS: PCP Internal Medicine; Visit Provider Internal Medicine
DX: C61 Malignant neoplasm of prostate (principal); D63.0 Anemia in neoplastic disease
CPT/HCPCS: 80053; 84153; 84403; 85025

== ENCOUNTER 2022-06-16 01:46 | Outpatient (RCR) | payer OTHER, SELFPAY ==
[2022-05-23 00:18] VITALS: BP 112/56; PULSE 75; RESP 17; TEMP 36.6
[2022-05-25 08:30] LABS: Abs Immature Grans 0.45 10^3/uL (0.0-0.06); Absolute Basophil Count 0.04 10^3/uL (0.0-0.2); Absolute Eosinophil Count 0.02 10^3/uL (0.0-0.7); Absolute Lymphocyte Count 0.75 10^3/uL (1.2-3.4); Absolute Monocyte Count 0.81 10^3/uL (0.1-0.8); Absolute Neutrophil Count 4.81 10^3/uL (1.2-6.7); Basophils % 0.6; Eosinophils % 0.3; HCT 31.5 % (40.0-50.0); HGB 10.3 g/dL (13.5-17.5); Immature Grans % 6.5; Lymphocytes % 10.9; MCH 30.2 pg (27.0-33.0); MCHC 32.7 % (32.0-36.0); MCV 92 fL (80-95); MPV 8.5 fL (8.0-11.0); Monocytes % 11.8; Neutrophils % 69.9; Nucleated RBC 0.3 % (0.0-0.3); Platelet Count 263 10^3/uL (130-400); RBC 3.41 10^6/uL (4.36-5.78); RDW 16.4 % (11.8-14.1); RDW-SD 55.5 fL; WBC 6.88 10^3/uL (4.4-10.8)
[2022-05-25 08:49] LABS: ALT 19 U/L (16-63); AST 78 U/L (15-37); Albumin 3.2 g/dL (3.4-5.0); Alkaline Phosphatase 130 U/L (46-116); Anion Gap 9.2 mmol/L (3-11); BUN 15 mg/dL (7-18); Bilirubin, Total 0.7 mg/dL (0.2-1.0); CO2 26.8 mmol/L (21.0-32.0); CREATININE 0.8 mg/dL (0.70-1.30); Calcium 9.3 mg/dL (8.5-10.1); Chloride 100 mmol/L (98-107); Estimated GFR 105.82 (mL/min/1.73m2); Glucose 159 mg/dL (74-106); Potassium 3.7 mmol/L (3.5-5.1); Sodium 136 mmol/L (136-145); Total Protein 7.7 g/dL (6.4-8.2)
[2022-05-25 08:52] LABS: Diff Comment Diff Reviewed; RBC Morphology Normal
[2022-06-16 09:16] VITALS: BP 115/68; PULSE 101; RESP 18; TEMP 37.5; O2SAT 98
[2022-06-16] MEDS: Normal Saline Flush 10 ML SYR IVP (09:27)
[2022-06-16] MEDS: diphenhydrAMINE 25 MG CAP PO (09:27)
[2022-06-16] MEDS: Acetaminophen 325 MG TAB 650 MG PO (09:27)
[2022-06-16 09:30] VITALS: BP 109/65; PULSE 96; RESP 18; TEMP 36.7; O2SAT 96
[2022-06-16 09:52] VITALS: BP 112/65; PULSE 95; RESP 18; TEMP 37; O2SAT 97
[2022-06-16 10:15] VITALS: BP 112/65; PULSE 98; RESP 18; TEMP 36.5; O2SAT 98
[2022-06-16 11:15] VITALS: BP 112/67; PULSE 91; RESP 17; TEMP 36.8; O2SAT 99
== END 2022-06-22 23:59 | disposition home or self-care (01) ==
LOC: INF 01:46
PROVIDERS: PCP Student in an Organized Health Care Education/Training Program; Visit Provider Internal Medicine
DX: D63.0 Anemia in neoplastic disease (principal)
CPT/HCPCS: 36415; 36430; 80053; 86850; 86900; 86901; 86920; 86945; 85025; P9016

== ENCOUNTER 2022-06-24 09:37 | Emergency (ER) | payer OTHER, SELFPAY ==
[2022-06-24] VITALS (12 sets, daily range): BP systolic 101–122; BP diastolic 57–64; PULSE 97–114; RESP 13–22; TEMP 36.5; O2SAT 96–99
--- NOTE | 2022-06-24 09:45 | RT.EKG_ITS ---
APPROVED REPORT Exam: Resting ECG Reason for Exam: left arm pain,numbness Patient Location: E HR:94 bpm ECG Measurements Heart Rate 94 AXIS NE 125 P 36 QRSd 92 QRS 62 QT 367 T 31 QTc 459 Conclusion Sinus rhythm...normal P axis, V-rate 60- 99
--- NOTE | 2022-06-24 09:45 | DI.CT_ITS ---
Exam(s) CT HEAD WO/W EXAM: CT HEAD WO/W CLINICAL HISTORY: left hand numbness and weakness. TECHNIQUE: Imaging Protocol: Axial computed tomography images with coronal and sagittal reformatted images were created and reviewed. CONTRAST MATERIAL: Intravenous: Omnipaque 350 Contrast volume:100ml COMPARISON: No exams were available for comparison FINDINGS: Ventricles and Extra axial spaces: Normal in size and morphology for the patient's age. Hemorrhage: None. Cerebral parenchyma: 1.9 cm mass anteroinferior left temporal lobe with mild adjacent edema. 2.5 cent imeter partially cystic mass anterior right frontal lobe with mild surrounding white matter edema. 2. 2 centimeter mass right high frontal parietal region with mild surrounding edema. Abnormal diffuse an d bilateral meningeal thickening and enhancement seen along the frontoparietal convexities suspiciou s for meningeal metastases. Midline shift: None. Brainstem/Cerebellum: Normal. Venous sinuses are patent. [id number]-[id number] vasculature appears within normal limits. Calvarium: No lytic or blastic lesions. Visualized Paranasal sinuses/Mastoids: Clear. IMPRESSION: Multiple bilateral enhancing masses consistent with metastatic disease. There is also abnormal thicke isma meningeal enhancement consistent with meningeal metastases. Findings discussed with Dr. Meño Parada of the emergency department. RADIATION DOSE DELIVERED: 1,686.12mGy.cm Total DLP DATA REPOSITORY: All CT scans at this facility are submitted to the National Radiology Data Registry (NRDR) Dose Index Registry (DIR) with the [employer] (ACR). RADIATION OPTIMIZATION: All CT scans at this facility use at least one of these dose optimization te chniques: automated exposure control; mA and/or kV adjustment per patient size (includes targeted exa ms where dose is matched to clinical indication); or iterative reconstruction.
--- NOTE | 2022-06-24 10:02 | NUR.NOTE ---
Nursing Note: Report received from [place] [facility] and care assumed at this time.
[2022-06-24 10:21] LABS: Abs Immature Grans 0.32 10^3/uL (0.0-0.06); Absolute Basophil Count 0.03 10^3/uL (0.0-0.2); Absolute Eosinophil Count 0.03 10^3/uL (0.0-0.7); Absolute Lymphocyte Count 0.44 10^3/uL (1.2-3.4); Absolute Monocyte Count 0.49 10^3/uL (0.1-0.8); Absolute Neutrophil Count 2.06 10^3/uL (1.2-6.7); Basophils % 0.9; Eosinophils % 0.9; HCT 23.9 % (40.0-50.0); HGB 7.6 g/dL (13.5-17.5); Immature Grans % 9.5; Lymphocytes % 13.1; MCHC 31.8 % (32.0-36.0); MCV 95 fL (80-95); MPV 9.4 fL (8.0-11.0); Monocytes % 14.5; Neutrophils % 61.1; Nucleated RBC 1.2 % (0.0-0.3); Platelet Count 102 10^3/uL (130-400); RBC 2.53 10^6/uL (4.36-5.78); RDW 17.1 % (11.8-14.1); RDW-SD 58.6 fL; WBC 3.37 10^3/uL (4.4-10.8)
[2022-06-24] MEDS: Omnipaque 350 MG/ML 500 ML BTL-Imaging package IJ (10:55)
[2022-06-24 10:56] LABS: Diff Comment Diff Reviewed; RBC Morphology Normal
[2022-06-24] MEDS: Normal Saline - Diluent 50 ML VIAL IJ (10:56)
[2022-06-24] MEDS: Normal Saline Flush 10 ML SYR IVP (10:56)
[2022-06-24 11:05] LABS: ALT 20 U/L (16-63); AST 93 U/L (15-37); Albumin 2.7 g/dL (3.4-5.0); Alkaline Phosphatase 116 U/L (46-116); Anion Gap 8.9 mmol/L (3-11); BUN 7 mg/dL (7-18); Bilirubin, Total 0.4 mg/dL (0.2-1.0); CO2 25.1 mmol/L (21.0-32.0); CREATININE 0.5 mg/dL (0.70-1.30); Calcium 8.7 mg/dL (8.5-10.1); Chloride 101 mmol/L (98-107); Estimated GFR 121.96 (mL/min/1.73m2); Glucose 102 mg/dL (74-106); Magnesium 1.6 mg/dL (1.8-2.4); Potassium 4.5 mmol/L (3.5-5.1); Sodium 135 mmol/L (136-145); Total Protein 6.1 g/dL (6.4-8.2); Troponin I < 50 ng/L (<or=60)
--- NOTE | 2022-06-24 11:12 | ED.GENADUL_ITS ---
Discharge Plan Disposition Patient Disposition: Transfer-Acute Inpatient Care Specific Acute Inpt Facility: [facility] Discharge Details Clinical Impression: Metastatic cancer to brain, Left hand paresthesia Primary Care Provider: Arcadio Pearce ED Provider: Meño Parada Home Meds and New Rx's Prescriptions: No Action prochlorperazine maleate 10 mg tablet 10 mg PO Q6H PRN (Reason: nausea and vomiting) Qty: 90 3RF Biotene PBF Mouthwash 15 ml mucous membrane TID-QID PRN (Reason: dry mouth) Qty: 473 3RF Rx Instructions: swish for 15-30 secs , then spit out; do not swallow ondansetron 4 mg tablet,disintegrating 4 mg PO Q6H PRN (Reason: nausea and vomiting) Qty: 90 3RF Rx Instructions: Palliative care patient trazodone 50 mg tablet 50 - 100 mg PO QHS Qty: 60 3RF calcium glucarate 500 mg capsule 3 tab-cap PO DAILY Xtandi 40 mg tablet 160 mg PO DAILY senna 8.6 mg capsule 8.6 mg PO BID PRN (Reason: constipation) Qty: 60 0RF Rx Instructions: palliative care patient scopolamine base 1 mg over 3 days patch 3 day 1 patch transdermal Q3D Qty: 10 3RF hydromorphone 2 mg tablet 2 - 4 mg PO Q4H MDD 12 tabs PRN (Reason: pain) Qty: 100 0RF Rx Instructions: for cancer related pain palliative care patient lansoprazole [Prevacid] 30 mg capsule,delayed release(DR/EC) 30 mg PO DAILY Rx Instructions: 12/22/21 oncology jwo cholecalciferol (vitamin D3) 10 mcg (400 unit) tablet 20 mcg PO DAILY Rx Instructions: 12/22/21 per [facility] [place] 800 iu daily with calcium zoledronic [id number] 4 mg/100 mL piggyback 4 mg IV Q4W Rx Instructions: administer over at least 15 mins Lupron Depot (3 month) 22.5 mg syringe kit 22.5 mg IM [id number] fentanyl 75 mcg/hr patch 72 hour 1 patch transdermal Q72H MDD 1 patch Qty: 10 0RF Rx Instructions: Dose increase. Cancer related pain Palliative care patient potassium chloride 20 mEq tablet extended release 20 meq PO BID Patient Comments: 06/15/22-[facility] [place] heme-onc rx'd 60 tablets with 3 refills. morphine concentrate 100 mg/5 mL (20 mg/mL) solution See Rx Instructions PO Q1H PRN MDD 120 mg PRN (Reason: pain or shortness of breath) Qty: 30 0RF Rx Instructions: 0.25-1.0 ml orally every 1 hour, as needed PRN; hospice lorazepam 1 mg tablet 1 mg PO QID PRN (Reason: anxiety, nausea, shortness of breath) Qty: 10 2RF Rx Instructions: hospice fentanyl 25 mcg/hr patch 72 hour 1 patch transdermal Q72H MDD 100 mcg/hr Qty: 5 0RF Rx Instructions: add 25 mcg/hr patch to 75 mcg/hr for total of 100 mcg/hr hospice lorazepam 2 mg/mL concentrate 1 mg PO Q4H PRN PRN (Reason: anxiety) Qty: 30 0RF Rx Instructions: hospice morphine 5 mg/mL syringe 2 mg subcut ONCE MDD 50mg Qty: 24 0RF morphine (PF) 10 mg/mL solution 1 mg subcut ONCE MDD 20 Qty: 20 0RF Discharge Data Discharge Date/Time-TO BE ENTERED AT DEPARTURE: 06/24/22 19:18 Medical Decision Making 52-year-old male with history of prostatic 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 also notes some intermittent speech disturbance. also notes left-sided facial weakness unchanged and chronically present over the past months to 1 year. I have concern for metastatic brain lesions. Plan for CT of the head with IV contrast. MRI is not available today as unit is malfunctioning. --Labs reviewed and anemia noted. Anemia has been present and I suspect this is related to oncologic treatment. Platelets are also low at 102. Magnesium slightly low at 1.6. We will give magnesium oxide 800 mg. --CT of the head was interpreted by radiology, Dr. Chambers who I spoke with. CT reveals Multiple bilateral enhancing masses consistent with metastatic disease. There is also abnormal thickened meningeal enhancement consistent with meningeal metastases. I immediately contacted [facility] [place] to request consultation with neurosurgeon on-call. Awaiting callback. [phone] --I received a call from [facility] [place], discussed ED presentation and course, he reviewed CT imaging. He recommends Keppra 1 g IV load as well as dexamethasone 10 mg IV load. These have been ordered. Neurosx is considering potential benefit for interfacility transfer versus continuation of work-up as outpatient and will be calling back. -- Awaiting bed availability. Medical Records Medical records reviewed: Yes I reviewed the patient's medical records. Medical records narrative: I reviewed oncology note --patient is taking Pluvict[facility] Lab Data Lab results reviewed: Yes I reviewed the patient's lab results. Labs: Laboratory Tests Range/Units 06/24/22 06/24/22 06/24/22 10:10 10:10 10:10 WBC (4.4-10.8) 10^3/uL 3.37 L RBC (4.36-5.78) 10^6/uL 2.53 L Hgb (13.5-17.5) g/dL 7.6 L Hct (40.0-50.0) % 23.9 L MCV (80-95) fL 95 MCH (27.0-33.0) pg 30.0 MCHC (32.0-36.0) % 31.8 L RDW (11.8-14.1) % 17.1 H Plt Count (130-400) 10^3/uL 102 L MPV (8.0-11.0) fL 9.4 Immature Gran % 9.5 Neutrophils % 61.1 Lymphocytes % 13.1 Monocytes % 14.5 Eosinophils % 0.9 Basophils % 0.9 Nucleated RBC % (0.0-0.3) % 1.2 H Absolute Neutrophils (1.2-6.7) 10^3/uL 2.06 Absolute Lymphocytes (1.2-3.4) 10^3/uL 0.44 L Absolute Monocytes (0.1-0.8) 10^3/uL 0.49 Absolute Eosinophils (0.0-0.7) 10^3/uL 0.03 Absolute Basophils (0.0-0.2) 10^3/uL 0.03 RBC Morphology Normal PT Cancelled INR Cancelled APTT Cancelled Sodium Cancelled Potassium Cancelled Chloride Cancelled Carbon Dioxide Cancelled Anion Gap Cancelled BUN Cancelled Creatinine Cancelled Est GFR (CKD-EPI 2020) Cancelled Glucose Cancelled Calcium Cancelled Magnesium Cancelled Total Bilirubin Cancelled AST Cancelled ALT Cancelled Alkaline Phosphatase Cancelled Troponin I Cancelled Total Protein Cancelled Albumin Cancelled Range/Units 06/24/22 06/24/22 10:40 11:19 WBC (4.4-10.8) 10^3/uL RBC (4.36-5.78) 10^6/uL Hgb (13.5-17.5) g/dL Hct (40.0-50.0) % MCV (80-95) fL MCH (27.0-33.0) pg MCHC (32.0-36.0) % RDW (11.8-14.1) % Plt Count (130-400) 10^3/uL MPV (8.0-11.0) fL Immature Gran % Neutrophils % Lymphocytes % Monocytes % Eosinophils % Basophils % Nucleated RBC % (0.0-0.3) % Absolute Neutrophils (1.2-6.7) 10^3/uL Absolute Lymphocytes (1.2-3.4) 10^3/uL Absolute Monocytes (0.1-0.8) 10^3/uL Absolute Eosinophils (0.0-0.7) 10^3/uL Absolute Basophils (0.0-0.2) 10^3/uL RBC Morphology PT 10.5 INR 1.0 APTT 32.3 H Sodium 135 L Potassium 4.5 Chloride 101 Carbon Dioxide 25.1 Anion Gap 8.9 BUN 7 Creatinine 0.5 L Est GFR (CKD-EPI 2020) 121.96 Glucose 102 Calcium 8.7 Magnesium 1.6 L Total Bilirubin 0.4 AST 93 H ALT 20 Alkaline Phosphatase 116 Troponin I < 50 Total Protein 6.1 L Albumin 2.7 L HPI General Date/Time Provider Initiated Documentation: 06/24/22 09:54 . Information obtained by: patient and family . 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 His also notes some associated intermittent speech disturbance.? Related Data Home Medications Medication Instructions Recorded Confirmed cholecalciferol (vitamin D3) 10 20 mcg PO DAILY 12/22/21 06/24/22 mcg (400 unit) tablet lansoprazole 30 mg capsule,delayed 30 mg PO DAILY 12/22/21 06/24/22 release (Prevacid) calcium glucarate 500 mg capsule 3 tab-cap PO DAILY 01/01/22 06/24/22 enzalutamide 40 mg tablet (Xtandi) 160 mg PO DAILY 01/01/22 06/22/22 sennosides 8.6 mg capsule (senna) 8.6 mg PO BID PRN constipation #60 01/01/22 06/24/22 caps zoledronic acid 4 mg/100 mL in 4 mg IV Q4W 02/11/22 06/22/22 mannitol 5 %-water intravenous piggybck prochlorperazine maleate 10 mg 10 mg PO Q6H PRN nausea and 02/12/22 06/24/22 tablet vomiting #90 tabs leuprolide (3 month) 22.5 mg (3 22.5 mg IM [id number] 03/15/22 06/24/22 month) intramuscular syringe kit (Lupron Depot) saliva substitute combo no.9 15 ml mucous membrane TID-QID PRN 04/02/22 06/22/22 (Biotene PBF mouthwash) dry mouth #473 mL ondansetron 4 mg disintegrating 4 mg PO Q6H PRN nausea and 04/23/22 06/24/22 tablet vomiting #90 tabs trazodone 50 mg tablet 50 - 100 mg PO QHS #60 tabs 04/23/22 06/24/22 fentanyl 75 mcg/hr transdermal 1 patch transdermal Q72H #10 ea 06/04/22 06/24/22 patch hydromorphone 2 mg tablet 2 - 4 mg PO Q4H PRN pain #100 tabs 06/09/22 06/24/22 potassium chloride 20 mEq 20 meq PO BID 06/22/22 06/24/22 tablet,extended release scopolamine base 1 mg over 3 days 1 patch transdermal Q3D nausea #10 06/22/22 06/24/22 transdermal patch ea lorazepam 1 mg tablet 1 mg PO QID PRN anxiety, nausea, 06/26/22 shortness of breath #10 tabs morphine concentrate 100 mg/5 mL See Rx Instructions PO Q1H PRN PRN 06/26/22 (20 mg/mL) oral solution pain or shortness of breath #30 mL fentanyl 25 mcg/hr transdermal 1 patch transdermal Q72H #5 ea 06/29/22 patch lorazepam 2 mg/mL oral concentrate 1 mg (0.5 mL) PO Q4H PRN PRN 07/07/22 anxiety #30 mL morphine (PF) 10 mg/mL injection 1 mg (0.1 mL) subcut ONCE #20 mL 07/08/22 solution morphine 5 mg/mL injection syringe 2 mg (0.4 mL) subcut ONCE #24 mL 07/08/22 Previous Rx's Medication Instructions Recorded sennosides 8.6 mg capsule (senna) 8.6 mg PO BID PRN constipation #60 01/01/22 caps prochlorperazine maleate 10 mg 10 mg PO Q6H PRN nausea and 02/12/22 tablet vomiting #90 tabs saliva substitute combo no.9 15 ml mucous membrane TID-QID PRN 04/02/22 (Biotene PBF mouthwash) dry mouth #473 mL ondansetron 4 mg disintegrating 4 mg PO Q6H PRN nausea and 04/23/22 tablet vomiting #90 tabs trazodone 50 mg tablet 50 - 100 mg PO QHS #60 tabs 04/23/22 fentanyl 75 mcg/hr transdermal 1 patch transdermal Q72H #10 ea 06/04/22 patch hydromorphone 2 mg tablet 2 - 4 mg PO Q4H PRN pain #100 tabs 06/09/22 scopolamine base 1 mg over 3 days 1 patch transdermal Q3D nausea #10 06/22/22 transdermal patch ea lorazepam 1 mg tablet 1 mg PO QID PRN anxiety, nausea, 06/26/22 shortness of breath #10 tabs morphine concentrate 100 mg/5 mL See Rx Instructions PO Q1H PRN PRN 06/26/22 (20 mg/mL) oral solution pain or shortness of breath #30 mL fentanyl 25 mcg/hr transdermal 1 patch transdermal Q72H #5 ea 06/29/22 patch lorazepam 2 mg/mL oral concentrate 1 mg (0.5 mL) PO Q4H PRN PRN 07/07/22 anxiety #30 mL morphine (PF) 10 mg/mL injection 1 mg (0.1 mL) subcut ONCE #20 mL 07/08/22 solution morphine 5 mg/mL injection syringe 2 mg (0.4 mL) subcut ONCE #24 mL 07/08/22 Allergies Allergy/AdvReac Type Severity Reaction Status Date / Time cabazitaxel Allergy Intermediate flushing, Verified 06/24/22 09:48 diaphoresis, elevated BP, chest tightness General Stated Complaint: CVA/TIA HOOD: 2 Review of Systems All systems reviewed & are unremarkable except as noted in HPI and below Neurologic Neurologic: Reports as per HPI PFSH All Active Problems Metastatic cancer to brain (Acute) Left hand paresthesia (Acute) Nausea & vomiting (Acute) Abnormal weight loss (Acute) Anemia in neoplastic disease (Acute) transfuse hgb < 8.2 qoweek managed by oncology Insomnia (Acute) Palliative care patient (Acute) Constipation due to opioid therapy (Acute) Cancer related pain (Acute) Genetic counseling (Acute) I wonder if genetic testing/counselignis appropriate based on his type of cancer for family Hx. ?? Neuropathy (Acute) fingers/feet, per Onc note, 04/28/21 .. (Hx left CT??) Bone metastases (Acute) Interval increase @ axial/appendicular skel per 04/17/21 Onc note (Mali Singer, [employer]). Widespread osseous metastatic dz, 03/2020 bone scan. Diffuse sclerotic bony met (T/L spine, Ribs, Sternum), CT Chest & Bone Scan, 10/2019. Laceration of left hand (Acute) Numbness of finger (Acute) Left middle finger, possibly 2' medial nn (Hx carpal tunnel) Prostate cancer (Chronic) 10/27/21: last cycle of cabazitaxel; stable imaging with no progression of metastases. 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 Sclerotic bone lesions with very abnormal prostate exam. Bilateral post-traumatic osteoarthritis of knee (Acute 01/12/17) Hx w/ Dreisbach, [place]. Prepatellar bursitis of right knee (Acute 05/02/17) Medical History Skin cancer Family History Mother No problems noted. Father No problems noted. Sister No problems noted. Sister No problems noted. Brother No problems noted. Grandfather No problems noted. Grandfather Neoplasm Grandmother No problems noted. Grandmother Neoplasm Daughter No problems noted. Daughter No problems noted. 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 Sexually active: No Do you think of yourself as: straight/heterosexual Current gender identity: male What type of physical activity do you participate in: none Seatbelt use: always Helmet use: Yes Drive intox or ride w/intox auto parts delivery driver: No Do you feel safe at home: Yes Do you feel safe in your relationship?: Yes Exam Const General: cooperative and no acute distress HENMT Mouth: moist mucous membranes Eyes EOM: EOM intact bilaterally Neck Neck: trachea midline and supple Resp Auscultation: clear to auscultation bilaterally, no rales, no rhonchi and no wheezes Cardio Rate: regular rate and not tachycardic Rhythm: regular rhythm GI Palpation: soft, not firm, no guarding, no masses, not rigid and nontender Skin General skin exam: no rashes or lesions noted Neuro General: patient alert, patient awake and tone normal Cranial Nerves: PERRL, EOM intact bilaterally, facial strength abnormal, tongue midline, able to rotate head bilaterally and able to elevate shoulders bilaterally Cognition: normal cognition Motor: other (mild left facial weakness, 4/5 strength LUE) Extrem General: no edema Psych Appearance: grossly normal Mental Status: mental status grossly normal Course Vital Signs Vital signs: Vital Signs Temperature 36.5 C 06/24/22 09:42 Pulse 114 H 06/24/22 09:42 Respiratory Rate 20 06/24/22 09:42 Blood Pressure 122/63 06/24/22 09:42 Pulse Oximetry 98 06/24/22 09:42 Temperature 36.5 C 06/24/22 09:42 Temperature Source Oral 06/24/22 09:42 Pulse 106 H 06/24/22 10:31 Pulse 103 H 06/24/22 10:31 Respiratory Rate 22 06/24/22 10:31 Respiratory Effort 06/24/22 10:18 Respiratory Depth Normal 06/24/22 10:18 Respiratory Pattern Normal 06/24/22 10:18 Blood Pressure 116/64 06/24/22 10:31 Blood Pressure Mean 75 06/24/22 10:31 Blood Pressure Position Supine 06/24/22 09:42 Pulse Oximetry 97 06/24/22 10:31 Oxygen Delivery Method Room Air 06/24/22 09:42 Oxygen Flow Rate 0 06/24/22 09:42 Pain Level 0 06/24/22 09:42 Lab/Test Results Lab/Test Results: Laboratory Tests Range/Units 06/24/22 06/24/22 06/24/22 10:10 10:10 10:10 WBC (4.4-10.8) 10^3/uL 3.37 L RBC (4.36-5.78) 10^6/uL 2.53 L Hgb (13.5-17.5) g/dL 7.6 L Hct (40.0-50.0) % 23.9 L MCV (80-95) fL 95 MCH (27.0-33.0) pg 30.0 MCHC (32.0-36.0) % 31.8 L RDW (11.8-14.1) % 17.1 H Plt Count (130-400) 10^3/uL 102 L MPV (8.0-11.0) fL 9.4 Immature Gran % 9.5 Neutrophils % 61.1 Lymphocytes % 13.1 Monocytes % 14.5 Eosinophils % 0.9 Basophils % 0.9 Nucleated RBC % (0.0-0.3) % 1.2 H Absolute Neutrophils (1.2-6.7) 10^3/uL 2.06 Absolute Lymphocytes (1.2-3.4) 10^3/uL 0.44 L Absolute Monocytes (0.1-0.8) 10^3/uL 0.49 Absolute Eosinophils (0.0-0.7) 10^3/uL 0.03 Absolute Basophils (0.0-0.2) 10^3/uL 0.03 RBC Morphology Normal PT Cancelled INR Cancelled APTT Cancelled Sodium Cancelled Potassium Cancelled Chloride Cancelled Carbon Dioxide Cancelled Anion Gap Cancelled BUN Cancelled Creatinine Cancelled Est GFR (CKD-EPI 2020) Cancelled Glucose Cancelled Calcium Cancelled Magnesium Cancelled Total Bilirubin Cancelled AST Cancelled ALT Cancelled Alkaline Phosphatase Cancelled Troponin I Cancelled Total Protein Cancelled Albumin Cancelled Range/Units 06/24/22 10:40 WBC (4.4-10.8) 10^3/uL RBC (4.36-5.78) 10^6/uL Hgb (13.5-17.5) g/dL Hct (40.0-50.0) % MCV (80-95) fL MCH (27.0-33.0) pg MCHC (32.0-36.0) % RDW (11.8-14.1) % Plt Count (130-400) 10^3/uL MPV (8.0-11.0) fL Immature Gran % Neutrophils % Lymphocytes % Monocytes % Eosinophils % Basophils % Nucleated RBC % (0.0-0.3) % Absolute Neutrophils (1.2-6.7) 10^3/uL Absolute Lymphocytes (1.2-3.4) 10^3/uL Absolute Monocytes (0.1-0.8) 10^3/uL Absolute Eosinophils (0.0-0.7) 10^3/uL Absolute Basophils (0.0-0.2) 10^3/uL RBC Morphology PT INR APTT Sodium 135 L Potassium 4.5 Chloride 101 Carbon Dioxide 25.1 Anion Gap 8.9 BUN 7 Creatinine 0.5 L Est GFR (CKD-EPI 2020) 121.96 Glucose 102 Calcium 8.7 Magnesium 1.6 L Total Bilirubin 0.4 AST 93 H ALT 20 Alkaline Phosphatase 116 Troponin I < 50 Total Protein 6.1 L Albumin 2.7 L
[2022-06-24 11:52] LABS: PTT Activated 32.3 sec (21.0-27.5); Prothrombin Time 10.5 sec (9.3-11.0)
[2022-06-24] MEDS: Dexamethasone 10 MG/ML VIAL IVP (15:22)
[2022-06-24] MEDS: Magnesium Oxide 400 MG TAB 800 MG PO (15:23)
[2022-06-24] MEDS: levETIRAcetam 1,000 MG in Normal Saline 100 ML 400 MG IVPB (15:23)
[2022-06-24] MEDS: HYDROmorphone 4 MG TAB PO (18:28)
--- NOTE | 2022-06-24 19:13 | NUR.NOTE ---
Nursing Note: Report given to Nalini commercial painter w/ [facility]
== END 2022-06-24 19:18 | disposition short-term general hospital (02) ==
PROVIDERS: Emergency Provider Student in an Organized Health Care Education/Training Program; PCP Internal Medicine
DX: C79.31 Secondary malignant neoplasm of brain (principal); C61 Malignant neoplasm of prostate; R20.2 Paresthesia of skin; C77.9 Secondary and unspecified malignant neoplasm of lymph node, unspecified; C79.51 Secondary malignant neoplasm of bone; R53.1 Weakness; R47.89 Other speech disturbances; R29.810 Facial weakness; D64.9 Anemia, unspecified; D69.6 Thrombocytopenia, unspecified; E83.42 Hypomagnesemia
CPT/HCPCS: 36415; 80053; 93005; 96365; 96375; 99284; 70470; 83735; 84484; 85025; 85610; 85730; 93010; J1100; J1953